=== PATIENT | male | born 1945 | race African-American/Black ===

== ENCOUNTER 2017-02-06 20:04 | Emergency (ER) | payer OTHER ==
[~2017-02-06] VITALS: Ht 175.3 cm; Wt 72.6 kg
[~2017-02-06 20:04] MED LIST: ACETAMINOPHEN325 M1 PO; ALDACTONE25 MG PO; ALLOPURINOL 10100 M1 PO; ALLOPURINOL 30300 M2 PO; ASPIR-LOW81 MG PO; ASPIRIN EC81 M1 PO; ATORVASTATIN CA40 MG PO; CARVEDILOL12.5 MG PO; COLACE100 MG PO; COLCHICINE 0.60.6 M1 PO; COLCHICINE PO; COREG25 MG PO; EFFIENT10 MG PO; FUROSEMIDE 40 M40 M1 PO; FUROSEMIDE 80 M80 M1 PO; HYDROCODONE-AP1 EAC6 PO; IBUPROFEN 600600 M1 PO; IMDUR 60 MG TAB60 M1 PO; INDOMETHACIN 5050 M1 PO; INDOMETHACIN 5050 MG PO; K-DUR10 MEQ PO; KLOR-CON 1010 MEQ PO; LANOXIN 0.120.125 M1 PG; LANOXIN 0.120.125 M1 PO; LASIX 40 MG TAB40 M2 PO; LIPITOR 20 MG T20 M1 PO; LIPITOR40 MG PO; LISINOPRIL10 MG PO; LISINOPRIL20 MG PO; LISINOPRIL40 MG PO; NEURONTIN 300300 M1 PO; NICOTINE TRANSD21 M1 TOP; NITROGLYCERIN0.4 MG SL; NITROGLYCERIN0.4 MG SUBLING; NITROQUICK0.4 MG SL; NORCO 5-325 TA1 EACH PO; PACERONE 200 M200 M1 PO; PHENERGAN 25 MG25 M1 PO; SIMVASTATIN40 MG PO; TOPROL XL25 MG PO; TRAMADOL 50 MG50 MG PO; TYLENOL325 MG PO; VENTOLIN HFA 1818 GM INH; ZETIA10 MG PO
[2017-02-06 21:24] LABS: URINE BILIRUBIN NEGATIVE (Negative); URINE BLOOD TRACE (Negative); URINE COLOR YELLOW; URINE GLUCOSE-RANDOM* NEGATIVE (Negative); URINE KETONES NEGATIVE (Negative); URINE LEUKOCYTES-REFLEX NEGATIVE (Negative); URINE PROTEIN (DIPSTICK) TRACE (Negative); URINE UROBILINOGEN 0.2 E.U./dl (0.2-1.0)
[2017-02-06 21:26] LABS: ABSOLUTE NEUTROPHILS 2.8 thou/uL (1.4-8.2); BASOPHILS 0.6 % (0.0-2.0); EOSINOPHILS 1.8 % (0.0-3.0); HEMATOCRIT 40.9 % (42.0-52.0); HEMOGLOBIN 13.4 gm/dL (14.0-18.0); LYMPHOCYTES 31.5 % (24.0-44.0); MCHC 32.7 g/dL (28.0-37.0); MONOCYTES 11.3 % (1.0-8.0); PLATELET COUNT 175 thou/uL (150-400); POLYS 54.8 % (36.0-66.0); RBC 4.18 mil/uL (4.50-6.00); RDW 17.4 % (10.5-14.5); WBC 5.1 thou/uL (4.0-11.0)
[2017-02-06 21:27] LABS: MANUAL DIFF NO
[2017-02-06 21:32] LABS: CALCIUM 8.1 mg/dL (8.5-10.1); CREATININE 2.5 mg/dL (0.6-1.3); POTASSIUM 4.3 mmol/L (3.5-5.1)
[2017-02-06 21:36] LABS: ALBUMIN 3.1 g/dL (3.4-5.0); TOTAL BILIRUBIN 0.4 mg/dL (<0.1-1.0); TOTAL PROTEIN 8.4 g/dL (6.4-8.2)
[2017-02-06] MEDS ORDERED: ZOFRAN ODT4 MG PO (21:58)
[2017-02-06] MEDS ORDERED: IMODIUM A-D2 MG PO (21:58)
== END 2017-02-06 22:19 ==
LOC: ER 20:04
PROVIDERS: Emergency Medicine
DX: K52.9 Noninfective gastroenteritis and colitis, unspecified (principal); I50.9 Heart failure, unspecified; I10 Essential (primary) hypertension; E78.00 Pure hypercholesterolemia, unspecified; I71.4 Abdominal aortic aneurysm, without rupture; F17.210 Nicotine dependence, cigarettes, uncomplicated; Z85.46 Personal history of malignant neoplasm of prostate; Z95.0 Presence of cardiac pacemaker; Z88.0 Allergy status to penicillin; Z91.041 Radiographic dye allergy status

== ENCOUNTER 2017-08-03 20:55 | Emergency (ER) | payer OTHER ==
[~2017-08-03] VITALS: Ht 175.3 cm; Wt 72.6 kg
[~2017-08-03 20:55] MED LIST changes: +IMODIUM A-D2 MG PO; +ZOFRAN ODT4 MG PO
[2017-08-03] MEDS ORDERED: PREDNISONE 20 M20 MG PO (22:33)
== END 2017-08-03 23:01 | disposition home or self-care (01) ==
LOC: ER 20:55
DX: M54.12 Radiculopathy, cervical region (principal); I11.0 Hypertensive heart disease with heart failure; I50.9 Heart failure, unspecified; E78.00 Pure hypercholesterolemia, unspecified; F17.210 Nicotine dependence, cigarettes, uncomplicated; Z95.1 Presence of aortocoronary bypass graft; Z88.0 Allergy status to penicillin; Z91.041 Radiographic dye allergy status; Z98.890 Other specified postprocedural states; Z96.89 Presence of other specified functional implants; Z85.46 Personal history of malignant neoplasm of prostate

== ENCOUNTER 2017-09-06 00:58 | Emergency (ER) | payer OTHER ==
[~2017-09-06] VITALS: Ht 175.3 cm; Wt 72.6 kg
--- NOTE | ~2017-09-06 | EKG ---
[address] [place] [address] ELECTROCARDIOGRAM REPORT Name: SAJAN GARNETT [facility] [id number] Admission: 09/06/17 Attend Phys: Discharge: 09/06/17 Date of : 41 Report #: [id number] THIS REPORT FOR: //name// [facility] ED Test Date: 2017-09-06 Test Time: 01:11:10 Pat Name: SAJAN GARNETT Department: Room: Gender: Industrial Energy Engineer: JAYESH : 1945 Requested By: Karla Mello Order Number: [id number] MD: Octavio Cameron Measurements Intervals [place] Rate: 60 P: [place]: 196 QRS: 14 QRSD: 146 T: QT: 449 QTc: 449 Interpretive Statements Atrial-paced complexes Left bundle branch block Compared to ECG 02/28/2016 00:55:26 Sinus rhythm no longer present Electronically Signed On 09-06-2017 15:45:10 CDT by Octavio Cameron [email or web address] <ELECTRONICALLY SIGNED> By: Octavio Cameron MD 09/06/17 1545 0111 0 Octavio Cameron MD /MEJIA
[~2017-09-06 00:58] MED LIST changes: +PREDNISONE 20 M20 MG PO
[2017-09-06] MEDS ORDERED: FOLIC ACID1 MG PO (01:06)
[2017-09-06 01:30] LABS: BASOPHILS 1.2 % (0.0-2.0); EOSINOPHILS 3.7 % (0.0-3.0); HEMATOCRIT 38.2 % (42.0-52.0); HEMOGLOBIN 12.4 gm/dL (14.0-18.0); LYMPHOCYTES 27.2 % (24.0-44.0); MCH 31.9 pg (26.0-34.0); MCHC 32.4 g/dL (28.0-37.0); MCV 98.7 fL (80.0-100.0); MONOCYTES 11.9 % (1.0-8.0); PLATELET COUNT 199 thou/uL (150-400); RBC 3.87 mil/uL (4.50-6.00); RDW 16.4 % (10.5-14.5); WBC 5.4 thou/uL (4.0-11.0)
[2017-09-06 01:31] LABS: MANUAL DIFF NO
[2017-09-06 01:36] LABS: CALCIUM 8.6 mg/dL (8.5-10.1); CREATININE 2.7 mg/dL (0.7-1.3); POTASSIUM 4.2 mmol/L (3.5-5.1)
== END 2017-09-06 02:00 | disposition home or self-care (01) ==
LOC: ER 00:58
PROVIDERS: Emergency Medicine
DX: R51 Headache (principal); I11.0 Hypertensive heart disease with heart failure; I50.9 Heart failure, unspecified; F17.210 Nicotine dependence, cigarettes, uncomplicated; E78.00 Pure hypercholesterolemia, unspecified; M10.9 Gout, unspecified; I71.4 Abdominal aortic aneurysm, without rupture; Z85.46 Personal history of malignant neoplasm of prostate; Z91.041 Radiographic dye allergy status; Z88.0 Allergy status to penicillin

== ENCOUNTER → 2017-11-27 | Outpatient (CLI) | payer OTHER ==
[~2017-11-27] MED LIST changes: +ALBUTEROL2.5 MG/31 INH; +COZAAR 50 MG TA50 MG PO; +DUONEB 2.5-0.5 M3 ML INH; +FLOMAX0.4 MG PO; +FLONASE 0.05%50 MCG NASAL; +FOLIC ACID1 MG PO; +HYDRALAZINE 10M10 MG PO; +IMDUR 30 MG TAB30 M1 PO; +MUCINEX600 MG PO; +PROTONIX 20 MG20 M1 PO; +SPIRIVA INH
== END ==
LOC: ULTRA 06:47
DX: I12.9 Hypertensive chronic kidney disease with stage 1 through stage 4 chronic kidney disease, or unspecified chronic kidney disease (principal); I71.4 Abdominal aortic aneurysm, without rupture; N40.0 Benign prostatic hyperplasia without lower urinary tract symptoms; N18.4 Chronic kidney disease, stage 4 (severe); Z95.5 Presence of coronary angioplasty implant and graft

== ENCOUNTER 2018-01-29 04:43 | Inpatient (IN) | payer OTHER ==
[~2018-01-29] VITALS: Ht 175.3 cm; Wt 74.4 kg
--- NOTE | ~2018-01-29 | CATHLAB ---
[facility] [address] [place] [address] INVASIVE PROCEDURE REPORT Name: SAJAN GARNETT Room #: 213-P DIS IN [facility]#: [id number] Admission: 01/29/18 Attend Phys: Nba Julio MD Discharge: 02/01/18 Date of : 41 Date of Service: 02/02/18 1310 Report #: [id number] THIS REPORT FOR: //name// APPROVED REPORT Study performed: 01/30/2018 07:12:06 Patient Details Patient Status: In-Patient Room #: The patient is a 73 year-old male Event Personnel Julio Cesar Slaughter Gate Tender, Tristan Kang RN, Farida Cummings CVT Scrub, Julio Cesar Robertson Monitor Procedures Performed Left Heart Cath w/or w/o Coronaries [id number] [facility] Indication Abnormal ECG, Dyspnea, Chest pain Risk Factors Arterial Hypertension, Coronary Artery DiseaseRenal Failure Previous Procedures/Diagnoses Previous CHF Admission/Lab Medications/Medications given during procedure Heparin Unfract. Procedure Narrative The patient was brought electively to the Cardiac Catheterization Laboratory and was prepped and draped in a sterile manner. The Right Wrist^ was infiltrated with 1% Lidocaine subcutaneous anesthesia. A TRANSRADIAL SLENDER 6F TROD MedicalDESCerevast TherapeuticsTH KIT #[id number] sheath was inserted into the Right Radial Artery^. Coronary angiography was performed using coronary diagnostic catheters. The right coronary system was accessed and visualized with a JR4 catheter. The left coronary system was accessed and visualized with a JL4 catheter. The left ventricle was accessed and visualized with a PIGTAIL catheter. Left ventricular/Aortic Valve gradient assessed via catheter pullback. Closure device was deployed with a 6 Fr VASC BAND R 24CM #[id number]. The patient tolerated the procedure well and there were no complications associated with the procedure. There was no hematoma. [facility] [address] [place] [address] INVASIVE PROCEDURE REPORT Name: SAJAN GARNETT Room #: 213-P [facility] IN ..#: [id number] Admission: 01/29/18 Attend Phys: Nba Julio MD Discharge: 02/01/18 Date of : 41 Date of Service: 02/02/18 1310 Report #: [id number] Intraoperative Conscious Sedation Sedation start time: 7.59 Case end Time: 8.17 Fentanyl 25 mcg Versed 1.5 mg Fluoro Time: 2.04 minutes Dose: 281 mGy Contrast Type and Amount: Visipaque 75 ml Coronary Angiography The patient's coronary anatomy is right dominant. [place] Artery Percent Stenosis Left Main: 0 % Prox LAD: 0 % Mid/Distal LAD: 0 % Circumflex: 0 % RCA: 100 % Ramus: 0 %stent in mid lad had no restenosis Left Ventriculography Left Ventriculography was not performed. Hemodynamics The aortic pressure is 99/67 mmHg with a mean of 78 mmHg. The left ventricular pressure is 99/14 mmHg with a mean of mmHg. The left ventricular end diastolic pressure is 25 mmHg. There was no gradient across the aortic valve upon pullback. Pullback from the left ventricle to the aorta revealed no gradient across the aortic valve. Conclusion 1. cad manifested by chronic occlusion of the proximal rca 2. no restenosis of the stent in the mid lad 3. severe cardiomyopathy Recommendations Aggressive Medical Therapy <ELECTRONICALLY SIGNED> By: Julio Cesar Slaughter MD, FACC 02/02/181309 09 09 Julio Cesar Slaughter MD, FACC /INF
--- NOTE | ~2018-01-29 | HC ---
[facility] [place] [address] [place] [address] CONSULTATION Name: SAJAN GARNETT Room #: 213-P [facility] IN ..#: [id number] Admission: 01/29/18 Attend Phys: Nba Julio MD Discharge: Date of : 41 Report #: [id number] THIS REPORT FOR: //name// CC: Richard Martinez Vishal Peralta DATE OF SERVICE: 01/29/2018 HISTORY OF PRESENT ILLNESS: The patient is a 73-year-old black male who I was asked to see in the hospital after he complained of chest pain. The patient presented in 2002 with acute pulmonary edema and had to be intubated. He was seen by Dr. Hernandez at that time. His creatinine ananda to 2.3. The patient was instructed to decrease his alcohol intake. He underwent a cardiac catheterization in 2002 that showed no significant disease in the LAD, circumflex. The right coronary artery is chronically occluded, filled by collaterals. Ejection fraction was felt to be less than 20%. The patient had a repeat cardiac catheterization in 2012. This showed an ejection fraction of only 20% with a chronic occlusion of the right coronary artery. He underwent another cardiac catheterization in 2013. He was found to have a significant stenosis in the proximal LAD and a drug-eluting stent placed by Dr. Camarena. Repeat heart catheterization in 2014 showed no restenosis of stent or chronic occlusion of the right coronary artery. He had an echocardiogram in 09/2017 that showed an ejection fraction of only 25% with left ventricular hypertrophy. The patient has done well since that time. However, he is not very active. He notes recently he has had intermittent tightness in his chest and become short of breath. He woke up this morning at 4:00 a.m. and had tightness in his chest and took a couple of nitroglycerins. He called the EMS, brought here to [facility]. He was admitted for further evaluation and treatment. He denied any recent fever. He has been coughing. He denied any significant edema. He has had no palpitations or syncope. PAST MEDICAL HISTORY: Significant for previous tonsillectomy, partial thyroidectomy. He has had a previous placement of an abdominal aortic aneurysm stent graft by Dr. Lowery. He just saw Sebastián August about 3 weeks ago. He has hypertension, hyperlipidemia. He saw Dr. Mckinnon about a month ago and apparently had a nuclear stress test. CURRENT MEDICATIONS: Consists of amiodarone, carvedilol, aspirin, Lipitor, Zetia, allopurinol. ALLERGIES: He has a previous reaction to CONTRAST AND PENICILLIN. FAMILY HISTORY: Negative for heart disease. 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 He used to drink [facility] [address] [place] [address] CONSULTATION Name: GARNETTSAJAN L Room #: 213-P [facility] IN .R.#: [id number] Admission: 01/29/18 Attend Phys: Nba Julio MD Discharge: Date of : 41 Report #: [id number] heavily, no longer drinks alcohol. Quit smoking 5 years ago, although he used to smoke a pack of cigarettes a day for years. REVIEW OF SYSTEMS: He has had no history of stroke, asthma, peptic ulcer disease. He has chronic kidney disease. He has had prostate cancer. PHYSICAL EXAMINATION: GENERAL: A large, elderly male lying in bed. He appeared in no distress. VITAL SIGNS: He had a blood pressure 110/60, pulse 60, he is afebrile. HEENT: He is anicteric. Conjunctivae pink. Mucous membranes moist. NECK: Veins do not appear distended. No carotid bruits. Neck supple. CHEST: Revealed basilar rales. CARDIAC: Regular rate and rhythm. No significant murmur. ABDOMEN: Soft. EXTREMITIES: Had no edema. Posterior tibial pulse 2+ bilaterally. SKIN: Warm and dry. NEUROLOGIC: Nonfocal. His ECG from this morning showed a sinus rhythm, occasional PVC and left bundle-branch block. His workup, he had portable chest x-ray that showed cardiomegaly, dual chamber pacemaker, lungs clear. He had a CT scan of the head without contrast last September that showed no acute abnormality. LABORATORY DATA: Sodium 143, potassium 4.3. His BUN was 49, creatinine is 2.4. Liver function studies were normal. Troponin is 0.04. Cholesterol 135, triglyceride 87, HDL 35, LDL 83. His white blood cell count 7.6, hemoglobin 12.5. IMPRESSION AND RECOMMENDATIONS: 1. Chest pain. Previous stenting. Consider repeat cardiac catheterization. 2. Cardiomyopathy. The patient has been on a beta-lalit. He apparently is not on ZULEMA inhibitor nor ARB because of chronic kidney disease. I would consider adding hydralazine and long-acting nitroglycerin. 3. History of ventricular tachycardia. The patient on amiodarone. 4. Previous implantation of pacemaker. 5. History of prostate cancer. 6. Chronic kidney disease. 7. Previous placement of an abdominal aortic aneurysm stent graft. 8. History of tobacco abuse. <ELECTRONICALLY SIGNED> By: Julio Cesar Slaughter MD, [facility] 01/30/18 0742 2033 2144 Julio Cesar Slaughter MD, FACC /nt
--- NOTE | ~2018-01-29 | EKG ---
[place] [address] [facility] [place] [email or web address] [address] ELECTROCARDIOGRAM REPORT Name: SAJAN GARNETT Room #: 213-P ADM IN M.R.#: [id number] Admission: 01/29/18 Attend Phys: Vishal Peralta MD Discharge: Date of : 41 Report #: [id number] THIS REPORT FOR: //name// [facility] ED Test Date: 2018-01-29 Test Time: 04:51:31 Pat Name: SAJAN GARNETT Department: Room: 213 Gender: M Canvas Worker Apprentice: Rosario RITTER : 1945 Requested By: Obdulio Eller Order Number: [id number] MD: Darshan Carmona Measurements Intervals [place] Rate: 69 P: 20 [place]: 201 QRS: 94 QRSD: 133 T: 256 QT: 415 QTc: 445 Interpretive Statements Sinus rhythm Multiple ventricular premature complexes Left bundle branch block Compared to ECG 09/16/2017 20:33:26 Ventricular premature complex(es) now present Electronically Signed On 01-29-2018 7:20:50 CDT by Darshan Carmona [email or web address] <ELECTRONICALLY SIGNED> By: Darshan Carmona MD, [facility] 01/29/18 0720 0451 0451 Darshan Carmona MD, [facility] /EPI
[~2018-01-29 04:43] MED LIST changes: -ALBUTEROL2.5 MG/31 INH; -COZAAR 50 MG TA50 MG PO; -DUONEB 2.5-0.5 M3 ML INH; -FLOMAX0.4 MG PO; -FLONASE 0.05%50 MCG NASAL; -HYDRALAZINE 10M10 MG PO; -IMDUR 30 MG TAB30 M1 PO; -MUCINEX600 MG PO; -PROTONIX 20 MG20 M1 PO; -SPIRIVA INH
[2018-01-29 04:44] VITALS: BP 128/80
[2018-01-29 04:56] LABS: ABSOLUTE NEUTROPHILS 5.6 thou/uL (1.4-8.2); BASOPHILS 0.8 % (0.0-2.0); EOSINOPHILS 3.3 % (0.0-3.0); HEMATOCRIT 38.5 % (42.0-52.0); HEMOGLOBIN 12.5 gm/dL (14.0-18.0); LYMPHOCYTES 16.8 % (24.0-44.0); MCH 31.2 pg (26.0-34.0); MCHC 32.4 g/dL (28.0-37.0); MCV 96.1 fL (80.0-100.0); PLATELET COUNT 173 thou/uL (150-400); POLYS 73.1 % (36.0-66.0); RBC 4.01 mil/uL (4.50-6.00); RDW 14.8 % (10.5-14.5); WBC 7.6 thou/uL (4.0-11.0)
[2018-01-29 05:02] LABS: ANION GAP 9 mmol/L (7-16); BUN 49 mg/dL (7-18); CALCIUM 8.6 mg/dL (8.5-10.1); CHLORIDE 108 mmol/L (98-107); CO2 26 mmol/L (21-32); CREATININE 2.4 mg/dL (0.7-1.3); GLUCOSE 118 mg/dL (74-106); POTASSIUM 4.3 mmol/L (3.5-5.1); SODIUM 143 mmol/L (136-145)
[2018-01-29 05:10] LABS: ALBUMIN 2.9 g/dL (3.4-5.0); APTT 27.1 Seconds (24.5-32.8); INR 1.1; MAGNESIUM 2.1 mg/dL (1.8-2.4); PROTIME 11.3 Seconds (9.3-11.4); SGOT 40 U/L (15-37); SGPT 45 U/L (30-65); TOTAL BILIRUBIN 0.3 mg/dL (<0.1-1.0); TROPONIN-I < 0.04 ng/mL (<0.06)
[2018-01-29 06:15] VITALS: BP 117/69
[2018-01-29 06:25] VITALS: BP 120/70
[2018-01-29 10:26] LABS: CHOLESTEROL 135 mg/dL (<200); HDL CHOLESTEROL 35 mg/dL (>40); LDL CHOLESTEROL 83 mg/dL (<100); TC:HDL 3.9 Ratio (Not establshd); TRIGLYCERIDE 87 mg/dL (<150); VLDL 17 mg/dL (<40)
[2018-01-29 10:53] LABS: TSH 0.338 uIU/mL (0.358-3.740)
[2018-01-29 15:15] VITALS: BP 113/64
[2018-01-29 19:31] VITALS: BP 110/63
[2018-01-30] VITALS (14 sets, daily range): BP systolic 99–121; BP diastolic 59–79
[2018-01-30 03:44] LABS: CALCIUM 8.7 mg/dL (8.5-10.1); CREATININE 2.3 mg/dL (0.7-1.3); MAGNESIUM 2.1 mg/dL (1.8-2.4); POTASSIUM 4.1 mmol/L (3.5-5.1)
[2018-01-30 04:16] LABS: ABSOLUTE NEUTROPHILS 11.4 thou/uL (1.4-8.2); HEMATOCRIT 36.9 % (42.0-52.0); LYMPHOCYTES 6.8 % (24.0-44.0); MCH 30.9 pg (26.0-34.0); MCHC 32.4 g/dL (28.0-37.0); MCV 95.4 fL (80.0-100.0); MONOCYTES 3.4 % (1.0-8.0); PLATELET COUNT 158 thou/uL (150-400); POLYS 89.8 % (36.0-66.0); RBC 3.87 mil/uL (4.50-6.00); RDW 14.8 % (10.5-14.5); WBC 12.7 thou/uL (4.0-11.0)
[2018-01-31 00:19] VITALS: BP 120/80
[2018-01-31 03:54] LABS: HEMOGLOBIN 11.7 gm/dL (14.0-18.0); MCHC 32.6 g/dL (28.0-37.0); MCV 95.1 fL (80.0-100.0); RBC 3.79 mil/uL (4.50-6.00); RDW 14.8 % (10.5-14.5); WBC 17.2 thou/uL (4.0-11.0)
[2018-01-31 04:11] LABS: CALCIUM 8.3 mg/dL (8.5-10.1); CREATININE 2.2 mg/dL (0.7-1.3); POTASSIUM 4.6 mmol/L (3.5-5.1)
[2018-01-31 05:04] VITALS: BP 130/88
[2018-01-31 07:56] VITALS: BP 132/93
[2018-01-31 10:31] LABS: URINE BILIRUBIN NEGATIVE (Negative); URINE BLOOD NEGATIVE (Negative); URINE CLARITY CLEAR; URINE COLOR YELLOW; URINE GLUCOSE-RANDOM* NEGATIVE (Negative); URINE KETONES NEGATIVE (Negative); URINE LEUKOCYTES-REFLEX NEGATIVE (Negative); URINE NITRITE-REFLEX NEGATIVE (Negative); URINE PROTEIN (DIPSTICK) NEGATIVE (Negative); URINE UROBILINOGEN 0.2 E.U./dl (0.2-1.0)
[2018-01-31 12:11] VITALS: BP 124/84
[2018-01-31 16:07] VITALS: BP 124/82
[2018-01-31 19:57] VITALS: BP 119/82
[2018-02-01 01:10] VITALS: BP 135/92
[2018-02-01 04:11] LABS: HEMATOCRIT 37.1 % (42.0-52.0); HEMOGLOBIN 11.9 gm/dL (14.0-18.0); MCH 30.8 pg (26.0-34.0); MCHC 32.2 g/dL (28.0-37.0); MCV 95.8 fL (80.0-100.0); RBC 3.87 mil/uL (4.50-6.00); RDW 15.4 % (10.5-14.5); WBC 14.4 thou/uL (4.0-11.0)
[2018-02-01 04:14] LABS: CALCIUM 8.4 mg/dL (8.5-10.1); CREATININE 2.3 mg/dL (0.7-1.3); POTASSIUM 4.3 mmol/L (3.5-5.1)
[2018-02-01 04:57] VITALS: BP 137/89
[2018-02-01] MEDS ORDERED: FLOMAX0.4 MG PO (10:46)
[2018-02-01] MEDS ORDERED: IMDUR 30 MG TAB30 M1 PO (10:46)
[2018-02-01] MEDS ORDERED: HYDRALAZINE 10M10 MG PO (10:46)
[2018-02-01] MEDS ORDERED: MUCINEX600 MG PO (10:47)
[2018-02-01] MEDS ORDERED: PROTONIX 20 MG20 M1 PO (10:48)
[2018-02-01] MEDS ORDERED: FLONASE 0.05%50 MCG NASAL (10:48)
[2018-02-01 12:08] VITALS: BP 119/76
[2018-02-01 12:32] VITALS: BP 119/76
[2018-02-01 13:19] VITALS: BP 119/76
[2018-06-17] MEDS ORDERED: ZETIA10 MG PO (07:17)
[2018-06-17] MEDS ORDERED: COZAAR 50 MG TA50 MG PO (07:19)
[2018-06-17] MEDS ORDERED: SPIRIVA INH (07:20)
[2018-06-17] MEDS ORDERED: PROTONIX 20 MG20 M1 PO (07:20)
[2018-06-17] MEDS ORDERED: VENTOLIN HFA 1818 GM INH (07:21)
== END 2018-02-01 13:24 | disposition home or self-care (01) | DRG 286 ==
LOC: ER 04:43 → 2N 05:46 → EROBS 05:46 → 2N 06:08
PROVIDERS: Emergency Medicine; Hospitalist; Internal Medicine Cardiovascular Disease; Nurse Practitioner
PROC: B2111ZZ Fluoroscopy of Multiple Coronary Arteries using Low Osmolar Contrast (ICD-10-PCS; principal; 2018-01-30)
PROC: 4A023N7 Measurement of Cardiac Sampling and Pressure, Left Heart, Percutaneous Approach (ICD-10-PCS; principal; 2018-01-30)
DX: I13.0 Hypertensive heart and chronic kidney disease with heart failure and stage 1 through stage 4 chronic kidney disease, or unspecified chronic kidney disease (principal); E43 Unspecified severe protein-calorie malnutrition; I50.23 Acute on chronic systolic (congestive) heart failure; N17.9 Acute kidney failure, unspecified; I44.7 Left bundle-branch block, unspecified; I42.9 Cardiomyopathy, unspecified; E78.00 Pure hypercholesterolemia, unspecified; M10.9 Gout, unspecified; I25.10 Atherosclerotic heart disease of native coronary artery without angina pectoris; E89.0 Postprocedural hypothyroidism; N18.9 Chronic kidney disease, unspecified; I49.3 Ventricular premature depolarization; I71.4 Abdominal aortic aneurysm, without rupture; Z95.5 Presence of coronary angioplasty implant and graft; Z95.0 Presence of cardiac pacemaker; Z85.46 Personal history of malignant neoplasm of prostate; Z79.899 Other long term (current) drug therapy; Z88.0 Allergy status to penicillin; Z91.041 Radiographic dye allergy status; Z90.49 Acquired absence of other specified parts of digestive tract; Z79.82 Long term (current) use of aspirin; Z82.49 Family history of ischemic heart disease and other diseases of the circulatory system; Z87.891 Personal history of nicotine dependence; Z68.24 Body mass index [BMI] 24.0-24.9, adult
CPT/HCPCS: 10081

== ENCOUNTER 2018-02-14 08:42 | Inpatient (IN) | payer OTHER ==
[~2018-02-14] VITALS: Ht 175.3 cm; Wt 72.6 kg
[2018-02-14] VITALS (7 sets, daily range): BP systolic 100–132; BP diastolic 70–88
--- NOTE | ~2018-02-14 | EKG ---
[place] [address] [facility] [place] [address] ELECTROCARDIOGRAM REPORT Name: SAJAN GARNETT Room #: 423-1 ADM IN M.R.#: [id number] Admission: 02/14/18 Attend Phys: Vishal Peralta MD Discharge: Date of : 41 Report #: [id number] THIS REPORT FOR: //name// [facility] Test Date: 2018-02-15 Test Time: 00:24:23 Pat Name: SAJAN GARNETT Department: Room: [facility] Gender: M Elevator Conductor: jennifer : 1945 Requested By: Lita Lutz Order Number: [id number] MD: Darshan Carmona Measurements Intervals [place] Rate: 61 P: -17 ND: 194 QRS: 75 QRSD: 143 T: 176 QT: 491 QTc: 495 Interpretive Statements Sinus rhythm Left bundle branch block Cannot rule out anterolateral infarct, age indeterminate Compared to ECG 01/29/2018 04:51:31 No significant change was found Electronically Signed On 02-15-2018 13:05:56 CDT by Darshan Carmona [email or web address] <ELECTRONICALLY SIGNED> By: Darshan Carmona MD, [facility] 02/15/18 1305 0024 0024 Darshan Carmona MD, [facility] /EPI
--- NOTE | ~2018-02-14 | HC ---
[facility] [place] [address] [place] [address] CONSULTATION Name: SAJAN GARNETT Room #: 423-1 ADM IN M.R.#: [id number] Admission: 02/14/18 Attend Phys: Vishal Peralta MD Discharge: Date of : 41 Report #: [id number] THIS REPORT FOR: //name// CC: Richard Peralta PRIMARY CREDIT PRODUCT ANALYST: Zion Mckinnon M.D. REASON FOR CONSULTATION: Shortness of breath. HISTORY OF PRESENT ILLNESS: The patient is a 73-year-old male with ischemic cardiomyopathy, severe LV dysfunction and prior ICD. He presented with acute onset of orthopnea and PND. He really did not gain weight. He had been taking Lasix once daily as instructed. He has chronic kidney disease. He denies ICD discharge. He denies chest pain or pressure. He presented with hypoxia. His ECG did not show any acute ST segment changes. He has complaints of remaining in shortness of breath despite aggressive diuresis of over a liter of fluid overnight. He denies syncope or presyncope. He has been compliant with his other medications. PAST MEDICAL HISTORY: Ischemic cardiomyopathy, has a chronically occluded right coronary artery, in 2014, he underwent a cardiac catheterization, which showed a patent stent in the LAD. EF is 20-25%. He has an ICD. He has a history of prior partial thyroidectomy. He has a history of AAA stent. He is a tobacco user prior. CURRENT MEDICATIONS: Include amiodarone, carvedilol, aspirin, Lipitor, Zetia, allopurinol. Amiodarone 100 mg daily, carvedilol 12.5 mg p.o. b.i.d., hydralazine 10 mg p.o. t.i.d., Imdur 30 mg daily. He takes Lasix 40 mg daily, atorvastatin 20 mg daily, Zetia 10 mg daily, allopurinol 300 mg daily. ALLERGIES: IODINATED CONTRAST. SOCIAL HISTORY: He is a tobacco user actively. REVIEW OF SYSTEMS: GENERAL: No fevers or chills. GASTROINTESTINAL: No hematemesis, melena. GENITOURINARY: No dysuria or hematuria. CARDIOVASCULAR: No chest pain. No ICD discharge. Positive dyspnea, positive orthopnea, positive PND. NEUROLOGIC: Denies weakness or numbness. No seizures. RENAL: Positive history of kidney disease. [address] [address] CONSULTATION Name: SAJAN GARNETT Room #: 423-1 [facility] IN [facility].#: [id number] Admission: 02/14/18 Attend Phys: Vishal Peralta MD Discharge: Date of : 41 Report #: [id number] PHYSICAL EXAMINATION: VITAL SIGNS: Blood pressure when he presented was in the 120s/80s, O2 sats 97%, respiratory rate was 22. Weight 160 pounds. GENERAL: Thin elderly male. He is alert, in no apparent distress. NECK: Supple. No jugular venous distention. CARDIOVASCULAR: Regular, positive S3. LUNGS: Diminished breath sounds bilaterally. ABDOMEN: Soft, nontender. There is no rebound or guarding. EXTREMITIES: No peripheral edema. In fact, there is peripheral wasting. SKIN: Warm, dry. LABORATORY DATA: Electrocardiogram shows a sinus rhythm, left bundle. Sodium is 142, potassium is 4.2, chloride is 107, CO2 is 25, BUN is 33. On presentation, his creatinine was 2.3, this morning it is 2.6. His chest x-ray showed mild bibasilar nonconsolidative infiltrates. IMPRESSION: 1. Dqxnt-mu-rkqjcfd systolic congestive heart failure. He is aggressively diuresed, but still has some shortness of breath. So I wonder if this is a mixed presentation. He likely has fairly significant lung disease. I would back off his IV Lasix to once daily. After the next 24 hours, it can be discontinued, he can go back on oral Lasix. I would alternate 40 mg and 60 mg on discharge. 2. Coronary artery disease. He remained asymptomatic for angina, and I would not proceed with any invasive workup at this time. I think his symptoms are mixed congestive heart failure, chronic obstructive pulmonary disease exacerbation. 3. Chronic obstructive pulmonary disease. He likely will require home O2. 4. Hypertension. This is stable. 5. Chronic kidney disease. We are backing off on his IV Lasix therapy. By: 0934 1112 Hank Gonzalez MD, FACC /nt
--- NOTE | ~2018-02-14 | EKG ---
[place] [address] [facility] [place] [address] ELECTROCARDIOGRAM REPORT Name: SAJAN GARNETT Room #: 423-1 ADM IN M.R.#: [id number] Admission: 02/14/18 Attend Phys: Vishal Peralta MD Discharge: Date of : 41 Report #: [id number] THIS REPORT FOR: //name// [facility] ED Test Date: 2018-02-14 Test Time: 09:22:09 Pat Name: SAJAN GARNETT Department: Room: [facility] Gender: M Housing Director: Ade RAJAN : 1945 Requested By: Marcus Jarrett Order Number: [id number] MD: Darshan Carmona Measurements Intervals [place] Rate: 62 P: 5 [place]: 194 QRS: 94 QRSD: 148 T: 266 QT: 493 QTc: 501 Interpretive Statements Sinus rhythm Left bundle branch block Compared to ECG 01/29/2018 04:51:31 Ventricular premature complex(es) no longer present Electronically Signed On 02-15-2018 12:55:03 CDT by Darshan Carmona [email or web address] <ELECTRONICALLY SIGNED> By: Darshan Carmona MD, [facility] 02/15/18 1255 0922 1 Darshan Carmona MD, [facility] /EPI
[~2018-02-14 08:42] MED LIST changes: +FLOMAX0.4 MG PO; +FLONASE 0.05%50 MCG NASAL; +HYDRALAZINE 10M10 MG PO; +IMDUR 30 MG TAB30 M1 PO; +MUCINEX600 MG PO; +PROTONIX 20 MG20 M1 PO
[2018-02-14 09:27] LABS: BASOPHILS 1.3 % (0.0-2.0); EOSINOPHILS 3.9 % (0.0-3.0); HEMATOCRIT 37.4 % (42.0-52.0); HEMOGLOBIN 12.5 gm/dL (14.0-18.0); LYMPHOCYTES 22.2 % (24.0-44.0); MCH 31.7 pg (26.0-34.0); MCHC 33.4 g/dL (28.0-37.0); MCV 94.9 fL (80.0-100.0); MONOCYTES 9.8 % (1.0-8.0); PLATELET COUNT 253 thou/uL (150-400); POLYS 62.8 % (36.0-66.0); RBC 3.94 mil/uL (4.50-6.00); RDW 14.9 % (10.5-14.5); WBC 6.3 thou/uL (4.0-11.0)
[2018-02-14 09:36] LABS: ANION GAP 10 mmol/L (7-16); BUN 33 mg/dL (7-18); CHLORIDE 107 mmol/L (98-107); CO2 25 mmol/L (21-32); CREATININE 2.3 mg/dL (0.7-1.3); GLUCOSE 96 mg/dL (74-106); POTASSIUM 4.2 mmol/L (3.5-5.1); SODIUM 142 mmol/L (136-145)
[2018-02-14 09:44] LABS: ALBUMIN 2.7 g/dL (3.4-5.0); SGOT 21 U/L (15-37); SGPT 20 U/L (30-65); TOTAL BILIRUBIN 0.5 mg/dL (<0.1-1.0); TOTAL PROTEIN 8.1 g/dL (6.4-8.2); TROPONIN-I < 0.04 ng/mL (<0.06)
[2018-02-15 00:30] VITALS: BP 123/80
[2018-02-15 05:36] VITALS: BP 123/85
[2018-02-15 08:06] VITALS: BP 115/82
[2018-02-15 08:32] LABS: CALCIUM 9.1 mg/dL (8.5-10.1); CREATININE 2.6 mg/dL (0.7-1.3); MAGNESIUM 1.9 mg/dL (1.8-2.4); POTASSIUM 4.4 mmol/L (3.5-5.1)
[2018-02-15 16:00] VITALS: BP 92/65
[2018-02-15 19:40] VITALS: BP 92/56
[2018-02-16 04:10] VITALS: BP 110/70
[2018-02-16 07:50] VITALS: BP 114/68
[2018-02-16 15:50] VITALS: BP 117/61
[2018-02-16] MEDS ORDERED: ALBUTEROL2.5 MG/31 INH (15:58)
[2018-02-16] MEDS ORDERED: COLACE100 MG PO (15:58)
[2018-02-16] MEDS ORDERED: DUONEB 2.5-0.5 M3 ML INH (15:58)
[2018-02-16 16:33] VITALS: BP 117/61
[2018-02-16 17:54] VITALS: BP 117/61
== END 2018-02-16 18:57 | disposition home or self-care (01) | DRG 291 ==
LOC: ER 08:42 → 4E 10:06 → EROBS 10:06 → 4E 11:25
PROVIDERS: Emergency Medicine; Internal Medicine
DX: I13.0 Hypertensive heart and chronic kidney disease with heart failure and stage 1 through stage 4 chronic kidney disease, or unspecified chronic kidney disease (principal); I50.23 Acute on chronic systolic (congestive) heart failure; J44.1 Chronic obstructive pulmonary disease with (acute) exacerbation; I25.10 Atherosclerotic heart disease of native coronary artery without angina pectoris; I25.5 Ischemic cardiomyopathy; E89.0 Postprocedural hypothyroidism; M10.9 Gout, unspecified; N18.9 Chronic kidney disease, unspecified; E78.5 Hyperlipidemia, unspecified; F17.210 Nicotine dependence, cigarettes, uncomplicated; Z95.5 Presence of coronary angioplasty implant and graft; Z85.46 Personal history of malignant neoplasm of prostate; Z95.810 Presence of automatic (implantable) cardiac defibrillator; Z95.820 Peripheral vascular angioplasty status with implants and grafts; Z79.51 Long term (current) use of inhaled steroids; Z79.82 Long term (current) use of aspirin; Z79.899 Other long term (current) drug therapy; Z88.0 Allergy status to penicillin; Z91.041 Radiographic dye allergy status; Z82.49 Family history of ischemic heart disease and other diseases of the circulatory system
CPT/HCPCS: 10183

== ENCOUNTER 2018-12-22 13:25 | Emergency (ER) | payer OTHER ==
[~2018-12-22] VITALS: Ht 175.3 cm; Wt 72.6 kg
[~2018-12-22 13:25] MED LIST changes: +ALBUTEROL2.5 MG/31 INH; +COZAAR 50 MG TA50 MG PO; +DUONEB 2.5-0.5 M3 ML INH; +SPIRIVA INH
[2018-12-22 13:48] LABS: ABSOLUTE NEUTROPHILS 2.8 thou/uL (1.4-8.2); BASOPHILS 0.9 % (0.0-2.0); EOSINOPHILS 4.1 % (0.0-3.0); HEMATOCRIT 38.5 % (42.0-52.0); HEMOGLOBIN 12.6 gm/dL (14.0-18.0); LYMPHOCYTES 26.6 % (24.0-44.0); MCH 31.5 pg (26.0-34.0); MCHC 32.8 g/dL (28.0-37.0); MONOCYTES 11.9 % (1.0-8.0); PLATELET COUNT 170 thou/uL (150-400); POLYS 56.5 % (36.0-66.0); RBC 4.01 mil/uL (4.50-6.00); RDW 15.5 % (10.5-14.5); WBC 4.9 thou/uL (4.0-11.0)
[2018-12-22 13:55] LABS: ANION GAP 8 mmol/L (7-16); BUN 48 mg/dL (7-18); CALCIUM 8.6 mg/dL (8.5-10.1); CHLORIDE 105 mmol/L (98-107); CO2 24 mmol/L (21-32); CREATININE 2.7 mg/dL (0.7-1.3); GLUCOSE 98 mg/dL (74-106); SODIUM 137 mmol/L (136-145)
[2018-12-22 13:56] LABS: POTASSIUM 4.9 mmol/L (3.5-5.1)
[2018-12-22 14:04] LABS: ALBUMIN 2.9 g/dL (3.4-5.0); MAGNESIUM 2.4 mg/dL (1.8-2.4); SGOT 20 U/L (15-37); SGPT 8 U/L (30-65); TOTAL BILIRUBIN 0.4 mg/dL (<0.1-1.0); TROPONIN-I <0.06 ng/mL (<0.06)
[2018-12-22] MEDS ORDERED: COZAAR 25 MG TA25 M1 PO (14:22)
[2018-12-22] MEDS ORDERED: ALBUTEROL2.5 MG/31 INH (15:51)
[2018-12-22 16:20] VITALS: BP 128/64
--- NOTE | 2018-12-22 17:17 | EKG ---
[place] [address] [facility] [place] [address] ELECTROCARDIOGRAM REPORT Name: SAJAN GARNETT [facility] [id number] Admission: 12/22/18 Attend Phys: Discharge: Date of : 41 Report #: [id number] THIS REPORT FOR: //name// [facility] ED Test Date: 2018-12-22 Test Time: 13:46:48 Pat Name: SAJAN GARNETT Department: Room: Gender: M Health Occupations Instructor: kf : 1945 Requested By: Obdulio Eller Order Number: [id number] MD: Octavio Cameron Measurements Intervals [place] Rate: 71 P: -22 SD: 59 QRS: 191 QRSD: 165 T: 90 QT: 451 QTc: 491 Interpretive Statements Ventricular-paced complexes No further analysis attempted due to paced rhythm Compared to ECG 02/15/2018 00:24:23 Sinus rhythm no longer present Left bundle-branch block no longer present Myocardial infarct finding no longer present Electronically Signed On 12-22-2018 17:17:00 STEEL DETAILER by Octavio Cameron [email or web address] <ELECTRONICALLY SIGNED> By: Octavio Cameron MD 12/22/18 1717 1346 1346 Octavio Cameron MD /EPI
== END 2018-12-22 16:00 | disposition home or self-care (01) ==
LOC: ER 13:25
PROVIDERS: Emergency Medicine
DX: I25.5 Ischemic cardiomyopathy (principal); I13.0 Hypertensive heart and chronic kidney disease with heart failure and stage 1 through stage 4 chronic kidney disease, or unspecified chronic kidney disease; N18.9 Chronic kidney disease, unspecified; I50.9 Heart failure, unspecified; R06.00 Dyspnea, unspecified; R10.9 Unspecified abdominal pain; E78.00 Pure hypercholesterolemia, unspecified; E78.5 Hyperlipidemia, unspecified; I25.10 Atherosclerotic heart disease of native coronary artery without angina pectoris; F17.210 Nicotine dependence, cigarettes, uncomplicated; Z88.0 Allergy status to penicillin; Z91.041 Radiographic dye allergy status; Z95.5 Presence of coronary angioplasty implant and graft; Z85.46 Personal history of malignant neoplasm of prostate

== ENCOUNTER 2019-03-15 05:25 | Emergency (ER) | payer OTHER ==
[~2019-03-15] VITALS: Ht 175.3 cm; Wt 73.0 kg
[~2019-03-15 05:25] MED LIST changes: +COZAAR 25 MG TA25 M1 PO
[2019-03-15] MEDS ORDERED: AMIODARONE HCL100 MG PO (05:38)
[2019-03-15] MEDS ORDERED: LASIX 80 MG TAB80 MG PO (05:40)
[2019-03-15 05:57] LABS: ABSOLUTE NEUTROPHILS 5.2 thou/uL (1.4-8.2); EOSINOPHILS 1.7 % (0.0-3.0); HEMATOCRIT 40.8 % (42.0-52.0); HEMOGLOBIN 13.4 gm/dL (14.0-18.0); LYMPHOCYTES 18.3 % (24.0-44.0); MCH 31.3 pg (26.0-34.0); MCHC 32.7 g/dL (28.0-37.0); MCV 95.5 fL (80.0-100.0); MONOCYTES 10.1 % (1.0-8.0); PLATELET COUNT 195 thou/uL (150-400); POLYS 68.9 % (36.0-66.0); RBC 4.27 mil/uL (4.50-6.00); RDW 15.3 % (10.5-14.5); WBC 7.6 thou/uL (4.0-11.0)
[2019-03-15 06:02] LABS: ANION GAP 11 mmol/L (7-16); BUN 41 mg/dL (7-18); CALCIUM 8.9 mg/dL (8.5-10.1); CHLORIDE 103 mmol/L (98-107); CO2 23 mmol/L (21-32); CREATININE 2.3 mg/dL (0.7-1.3); GLUCOSE 94 mg/dL (74-106); POTASSIUM 5.2 mmol/L (3.5-5.1); SODIUM 137 mmol/L (136-145)
[2019-03-15 06:11] LABS: ALBUMIN 3.4 g/dL (3.4-5.0); MAGNESIUM 2.6 mg/dL (1.8-2.4); SGOT 20 U/L (15-37); SGPT 10 U/L (30-65); TOTAL BILIRUBIN 0.8 mg/dL (<0.1-1.0); TOTAL PROTEIN 9.1 g/dL (6.4-8.2); TROPONIN-I <0.06 ng/mL (<0.06)
[2019-03-15 08:57] VITALS: BP 136/84
--- NOTE | 2019-03-15 08:59 | EKG ---
[place] [address] [place] [address] ELECTROCARDIOGRAM REPORT Name: SAJAN GARNETT Room #: DEP Robert#: [id number] ������������������ Admission: 03/15/19 ������������������ Attend Phys: Discharge: 03/15/19 ������������������ Date of : 41 Report #: [id number] ����������������������������������������������������������������� [id number] THIS REPORT FOR: //name// [facility] ED Test Date: 2019-03-15 Test Time: 05:40:55 Pat Name: SAJAN GARNETT Department: Room: Gender: M First Officer And Flight Instructor: franky : 1945 Requested By: Tina Medellin Order Number: [id number] MD: Darshan Carmona Measurements Intervals [place] Rate: 82 P: 83 [place]: 161 QRS: 202 QRSD: 147 T: 52 QT: 421 QTc: 492 Interpretive Statements Atrial-sensed ventricular-paced complexes No further analysis attempted due to paced rhythm Compared to ECG 12/22/2018 13:46:48 No significant changes Electronically Signed On 03-15-2019 8:58:54 CDT by Darshan Carmona [email or web address] ��������������������������������������������� <ELECTRONICALLY SIGNED> ���������������������������������������� By: Darshan Carmona MD, [facility] ��������������������������������������������� 03/15/19 0858 9 Darshan Carmona MD, [facility] /EPI
== END 2019-03-15 08:57 | disposition home or self-care (01) ==
LOC: ER 05:25
PROVIDERS: Student in an Organized Health Care Education/Training Program
DX: I11.0 Hypertensive heart disease with heart failure (principal); I50.9 Heart failure, unspecified; E78.00 Pure hypercholesterolemia, unspecified; I25.10 Atherosclerotic heart disease of native coronary artery without angina pectoris; M10.9 Gout, unspecified; F17.210 Nicotine dependence, cigarettes, uncomplicated; Z95.5 Presence of coronary angioplasty implant and graft; Z85.46 Personal history of malignant neoplasm of prostate; Z91.041 Radiographic dye allergy status; Z88.0 Allergy status to penicillin

== ENCOUNTER 2019-03-24 14:46 | Inpatient (IN) | payer OTHER ==
[~2019-03-24] VITALS: Ht 175.3 cm; Wt 73.5 kg
--- NOTE | ~2019-03-24 | HC ---
[facility] [place] [address] [place] [address] CONSULTATION Name: SAJAN GARNETT Room #: 356-[facility] IN M.R.#: [id number] Admission: 03/24/19 ������������������ Attend Phys: Vishal Peralta MD Discharge: 03/26/19 ������������������ Date of : 41 Report #: [id number] THIS REPORT FOR: //name// CC: Richard Peralta DATE OF SERVICE: 03/26/2019 PRIMARY CARE PHYSICIAN: Dr. Peralta. TREATMENT COUNSELOR: Dr. Zion Mckinnon. OUTPATIENT PRIMARY CARE PHYSICIAN: Dr. Richard Martinez. CHIEF COMPLAINT: Right arm weakness. HISTORY OF PRESENT ILLNESS: The patient is a 74-year-old man, with severe LV dysfunction, who presented to the hospital with acute onset of right arm numbness, weakness and inability to move it. He thinks it lasted maybe at the longest 5 minutes. It was flaccid. He did not have any arm symptoms. He did not have any slurred speech as far as he knows. He denied any leg weakness. There were no facial symptoms. He presented in an AV paced rhythm. His symptoms had resolved by the time he got to the Emergency Room. Emergent CT scan of the head showed some nonspecific findings, but ultimately, he was evaluated by our neurology colleagues after evaluating his CT and carotid Doppler studies, which were largely unremarkable. It was felt his symptoms were probably embolic. An ICD interrogation for atrial fibrillation is pending, but telemetry has demonstrated only AV pacing and sinus rhythm with ventricular pacing. From a heart failure standpoint, he has had some issues with fluid retention as his EF is in the 15% range. Currently, he takes alternating doses of Lasix 80 mg and 40 mg. He denies defibrillator shocks or chest pain, pressure or shortness of breath. He has a remote history of ventricular tachycardia. There is no record of syncope or presyncope. His vital signs were stable on presentation, blood pressures in the 120s/70s. PAST MEDICAL HISTORY: Severe LV dysfunction, tobacco use, ventricular tachycardia, status post Biotronik ICD implanted, most recently generator change in June 2018, it is a biventricular device. He has class 3 heart failure, chronic kidney disease, remote [place]. [facility] [address] [place] [address] CONSULTATION Name: SAJAN GARNETT Room #: 356-P [facility] IN M.R.#: [id number] Admission: 03/24/19 ������������������ Attend Phys: Vishal Peralta MD Discharge: 03/26/19 ������������������ Date of : 41 Report #: [id number] HOME MEDICATIONS: Aspirin 81 mg daily, Zetia 10 mg daily, albuterol, atorvastatin 20 mg daily, losartan 25 mg daily, amiodarone 50 mg daily, Lasix 80 mg alternating with 40 mg, Protonix 20 mg daily. REVIEW OF SYSTEMS: GENERAL: No fevers or chills. CARDIOVASCULAR: Positive dyspnea on exertion, occasional orthopnea, but none recently. No PND. Positive edema. GENITOURINARY: No dysuria or hematuria. GASTROINTESTINAL: No rectal bleeding, hematemesis, melena or black colored stools. EYES: Denies any blurred vision or loss of vision. THROAT: Denies any dysphagia. NEUROLOGIC: As above. HEMATOLOGIC: No anemia or bleeding disorders. RENAL: Positive kidney failure. PHYSICAL EXAMINATION: VITAL SIGNS: Blood pressure as noted above. He presents currently is in a sinus rhythm with V pacing. GENERAL: He is alert, sitting in a chair. He is in no apparent distress. HEENT: Eyes: EOMs intact. No facial asymmetry. NECK: Supple. No jugular venous distention. CARDIOVASCULAR: Regular. I cannot hear a murmur. There is positive S3. LUNGS: Clear to auscultation bilaterally. ABDOMEN: Nontender. EXTREMITIES: There is peripheral wasting. There is no peripheral edema. NEUROLOGIC: There are no focal deficits. Electrocardiogram demonstrates AV pacing. LABORATORY DATA: Hemoglobin is 12.5, white blood cell count is 5.0, platelet count is 175,000. INR is 1.1. Sodium is 141, potassium is 4.3, chloride is 107, CO2 is 23, BUN is 47, creatinine is 2.5. UA is negative. Carotid Doppler study shows no significant carotid arterial atherosclerotic disease or stenosis. 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 ASSESSMENT: 1. Transient ischemic attack. After reviewing his data and his neurologic evaluation, it is felt that this was probably embolic. His resting echocardiogram did not show evidence of thrombus, but given his ejection fraction in the 15-20% range, he has substrate for spontaneous thrombus formation, especially in the presence of a possible atrial arrhythmia, atrial fibrillation. He has not had any evidence of atrial fibrillation inpatient and [facility] [address] [place] [address] CONSULTATION Name: SAJAN GARNETT Room #: 356-P DIS IN Robert#: [id number] Admission: 03/24/19 ������������������ Attend Phys: Vishal Peralta MD Discharge: 03/26/19 ������������������ Date of : 43 Report #: [id number] we will have his device interrogated to see if he has had any events; however, even if there is no evidence of atrial fibrillation, I suspect he should be anticoagulated with either Plavix or Xarelto. I would vote for the latter renally dosed 15 mg daily given his high risk for spontaneous thrombus in his left ventricle. 2. Chronic systolic congestive heart failure. He has severe left ventricular dysfunction; however, he is mostly compensated. He has done fairly well on alternating doses of 80 mg and 40 mg of Lasix. 3. Chronic kidney disease. This is probably near his baseline. I do not have his outpatient record. 4. Status post biventricular implantable cardioverter defibrillator. This is a recent device that should be MRI compatible if Dr. Molina feels as an MRI is necessary. It has been in for more than 6 months. ��������������������������������������������� ���������������������������������������� By: ��������������������������������������������� 0836 0031 Hank Gonzalez MD, FACC /nt
[~2019-03-24 14:46] MED LIST changes: +AMIODARONE HCL100 MG PO; +LASIX 80 MG TAB80 MG PO
[2019-03-24 14:52] VITALS: BP 113/76
[2019-03-24 15:12] LABS: BASOPHILS 1.2 % (0.0-2.0); HEMATOCRIT 38.8 % (42.0-52.0); HEMOGLOBIN 12.5 gm/dL (14.0-18.0); MCH 30.7 pg (26.0-34.0); MCHC 32.2 g/dL (28.0-37.0); MCV 95.2 fL (80.0-100.0); MONOCYTES 10.7 % (1.0-8.0); PLATELET COUNT 175 thou/uL (150-400); POLYS 59.1 % (36.0-66.0); RBC 4.08 mil/uL (4.50-6.00); RDW 15.1 % (10.5-14.5)
[2019-03-24] MEDS ORDERED: PROTONIX 20 MG20 M1 PO (15:19)
[2019-03-24 15:21] LABS: ANION GAP 9 mmol/L (7-16); BUN 49 mg/dL (7-18); CHLORIDE 109 mmol/L (98-107); CO2 23 mmol/L (21-32); CREATININE 2.7 mg/dL (0.7-1.3); GLUCOSE 96 mg/dL (74-106); POTASSIUM 4.8 mmol/L (3.5-5.1); SODIUM 141 mmol/L (136-145)
[2019-03-24 15:25] LABS: APTT 28.8 Seconds (24.5-32.8); INR 1.1; PROTIME 11.6 Seconds (9.3-11.4)
[2019-03-24 15:30] LABS: TROPONIN-I <0.06 ng/mL (<0.06)
[2019-03-24 18:50] LABS: URINE BILIRUBIN NEGATIVE (Negative); URINE BLOOD NEGATIVE (Negative); URINE CLARITY CLEAR; URINE COLOR YELLOW; URINE GLUCOSE-RANDOM* NEGATIVE (Negative); URINE KETONES NEGATIVE (Negative); URINE LEUKOCYTES NEGATIVE (Negative); URINE NITRITE NEGATIVE (Negative); URINE PROTEIN (DIPSTICK) NEGATIVE (Negative); URINE SPECIFIC GRAVITY 1.015 (1.005-1.035); URINE UROBILINOGEN 0.2 E.U./dl (0.2-1.0)
[2019-03-24 19:35] VITALS: BP 124/73
[2019-03-24 19:55] VITALS: BP 128/78
[2019-03-24 20:05] VITALS: BP 131/84
--- NOTE | 2019-03-24 23:30 | NUR ---
PATIENT WAS A NEW ADMISSION TO THE UNIT THIS SHIFT. HE ARRIVED VIA CART FROM THE ER AND WAS ABLE TO AMBULATE TO THE BED INCIDENT FREE. PATIENT IS FULLY ORIENTED AND ABLE TO PARTICIPATE FULLY IN ADMISSION PROCESS. PATIENT IS STRONG AND BALANCED WHEN AMBULATING AND IS UP AD MAE. NURSE TO COMPLETE ADMISSION PROCESS AND INITIATE CARE PLAN.
[2019-03-25] VITALS (7 sets, daily range): BP systolic 100–113; BP diastolic 62–79
[2019-03-25 05:47] LABS: ANION GAP 11 mmol/L (7-16); BUN 47 mg/dL (7-18); CALCIUM 8.4 mg/dL (8.5-10.1); CHLORIDE 107 mmol/L (98-107); CHOLESTEROL 197 mg/dL (<200); CO2 23 mmol/L (21-32); CREATININE 2.5 mg/dL (0.7-1.3); GLUCOSE 119 mg/dL (74-106); HDL CHOLESTEROL 40 mg/dL (>40); LDL CHOLESTEROL 142 mg/dL (<100); MAGNESIUM 1.9 mg/dL (1.8-2.4); POTASSIUM 4.3 mmol/L (3.5-5.1); SODIUM 141 mmol/L (136-145); TC:HDL 4.9 Ratio (Not establshd); TRIGLYCERIDE 76 mg/dL (<150); VLDL 15 mg/dL (<40)
[2019-03-25 06:00] LABS: SERUM ASSESSMENT Clear
--- NOTE | 2019-03-25 10:04 | 2DMMODE ---
[facility] [address] [place] [address] 2 D/M-MODE ECHOCARDIOGRAM Name: SAJAN GARNETT Room #: 356-P [facility] IN .R.#: [id number] ������������� Admission: 03/24/19 ������������� Attend Phys: Vishal Peralta, Discharge: ��� ������������� ��� Date of : 41 Date of Service: 03/25/19 1004 �� Report #: [id number] �������� ��������������������������������������������[id number] THIS REPORT FOR: //name// APPROVED REPORT Study performed: 03/25/2019 09:25:07 EXAM: Comprehensive 2D, Doppler, and color-flow Echocardiogram Patient Location: Echo lab Room #: [facility] Status: routine BSA: 1.89 HR: 60 bpm BP: 108/79 mmHg Rhythm: NSR Other Information Study Quality: Adequate Indications CVA/TIA Pacemaker Echo Enhancing Agent Indication: Rule out Shunt Agent(s) / Amount(s) Used: Agitated Saline 6 cc 2D Dimensions RVDd: 34.27 mm IVSd: 10.56 (7-11mm) LVOT Diam: 23.46 (18-24mm) LVDd: 70.59 mm PWd: 12.20 (7-11mm) Ascending Ao: 36.66 (22-36mm) LVDs: 70.09 (25-40mm) Aortic Root: 32.72 mm IVC: 15.00 mm Volumes Left Atrial Volume (Systole) Single Plane 4CH: 92.34 mL Single Plane 2CH: 103.26 mL LA ESV Index: 55.00 mL/m2 Aortic Valve AoV Peak Fernando.: 1.17 m/s AO Peak Gr.: 5.44 mmHg LVOT Max P.06 mmHg LVOT Max V: 0.51 m/s AKILA Vmax: 1.90 cm2 [facility] [address] [place] [address] 2 D/M-MODE ECHOCARDIOGRAM Name: SAJAN GARNETT Room #: 356-P [facility] IN .R.#: [id number] ������������� Admission: 03/24/19 ������������� Attend Phys: Vishal Peralta, Discharge: ��� ������������� ��� Date of : 41 Date of Service: 03/25/19 1004 �� Report #: [id number] �������� ��������������������������������������������[id number] Mitral Valve E/A Ratio: 2.1 MV Decel. Time: 132.15 ms MV E Max Fernando.: 0.78 m/s MV A Fernando.: 0.37 m/s MV PHT: 38.32 ms IVRT: 138.41 ms Pulmonary Valve PV Peak Fernando.: 0.78 m/s PV Peak Gr.: 2.46 mmHg Pulmonary Vein P Vein S: 0.35 m/s P Vein A: 0.24 m/s P Vein D: 0.41 m/s P Vein A Dur.: 92.3 msec P Vein S/D Ratio: 0.85 Tricuspid Valve TR Peak Fernando.: 3.18 m/s RAP Estimate: 5.00 mmHg TR Peak Gr.: 40.45 mmHg PA Pressure: 45.00 mmHg Left Ventricle Left ventricle is moderately dilated. There is normal left ventricular wall thickness. Left ventricular ejection fraction is severely decreased. LVEF is 10-15%. Transmitral Doppler flow pattern suggests restrictive physiology. Right Ventricle The right ventricle is normal size. Right ventricle is moderately hypokinetic. Atria Left atrium is severely dilated. No shunting by contrast bubble injection. The right atrium size is normal. Aortic Valve Aortic valve leaflets are mildly thickened. Trace aortic regurgitation. There is no aortic valvular stenosis. Mitral Valve The mitral valve is normal in structure. Mild mitral regurgitation. No evidence of mitral valve stenosis. Tricuspid Valve The tricuspid valve is normal in structure. Mild tricuspid [facility] [address] [place] [address] 2 D/M-MODE ECHOCARDIOGRAM Name: SAJAN GARNETT Room #: 356-P [facility] IN .R.#: [id number] ������������� Admission: 03/24/19 ������������� Attend Phys: Vishal Peralta, Discharge: ��� ������������� ��� Date of : 41 Date of Service: 03/25/19 1004 �� Report #: [id number] �������� ��������������������������������������������[id number] regurgitation. PAP is estimated at 45 mmHg. Pulmonic Valve The pulmonary valve is normal in structure. Trace to mild pulmonic regurgitation. Great Vessels The aortic root is normal in size. IVC is normal in size and collapses >50% with inspiration. Pericardium There is no pericardial effusion. <Conclusion> Left ventricle is moderately dilated. LVEF is 10-15%. Right ventricle is moderately hypokinetic. Left atrium is severely dilated. No shunting by contrast bubble injection. Aortic valve leaflets are mildly thickened. Trace aortic regurgitation. The mitral valve is normal in structure. Mild mitral regurgitation. The tricuspid valve is normal in structure. Mild tricuspid regurgitation. PAP is estimated at 45 mmHg. The pulmonary valve is normal in structure. Trace to mild pulmonic regurgitation. There is no pericardial effusion. ��������������������������������������������� <ELECTRONICALLY SIGNED> ���������������������������������������� By: Raghavendra So MD ��������������������������������������������� 03/25/19 1004 1004 1004 Raghavendra So MD /INF
--- NOTE | 2019-03-25 10:39 | NUR ---
ASSESSMENT: CM REVIEWED CHART AND MET WITH PATIENT AT THE BEDSIDE. PT WAS ADMITTED WITH RIGHT ARM WEAKNESS / POSSIBLE TIA. PT REPORTS HE LIVES IN A HOUSE WITH HIS . PT REPORTS IF HER ENTERS THROUGH THE FRONT DOOR HE HAS ABOUT 7 STEPS WITH HANDRAILS TO GET IN THE MAIN LEVEL AND IF HE ENTERS THROUGH THE GARAGE HAS ABOUT 14 STEPS WITH HANDRAILS TO THE MAIN LEVEL. PT REPORTS HE NORMALLY AMBULATES INDEPENDENTLY BUT SELDOMLY USES A CANE. PT REPORTS HE HAS A SHOWER CHAIR AND IS INDEPENDENT WITH ADLS. PT REPORTS HE HAS NOT HAD HH IN THE PAST OR BEEN TO A SNF/REHAB. PT REPORTS HE HAS A NEBULIZER AT HOME THROUGH [employer]. CM DISCUSSED ROLE. PT DOES NOT ANTICIPATE HAVING ANY NEEDS AT DISCHARGE. PT/OT EVALS ARE PENDING, CM WILL CONTINUE TO FOLLOW TO [facility] NEEDED.
--- NOTE | 2019-03-25 11:16 | NUR ---
ORDERS FOR PT EVAL AND TREAT RECEIVED. Pt HAS BEEN UP AD MAE WITH STEADY GAIT PER RN AND EMR. Pt PRESENTED TO HOSPITAL WITH DECREASED SENSATION TO R UE WHICH STARTED WHILE HE WAS AT A GAS STATION, BUT Pt REPORTS THIS HAS NOW RESOLVED. Pt LIVES WITH HIS IN HOME WITH 14 STEPS UP TO MAIN LEVEL FROM GARAGE. Pt DRIVES AND IS INDEP WITH ADLs AT BASELINE. AMBULATORY WITHOUT AD. Pt STATES HE DOES NOT NEED PT SERVICES AND HAS NO QUESTIONS OR CONCERNS ABOUT RETURNING HOME AND HIS MOBILITY UPON D/C FROM HOSPITAL. NO ACUTE PT NEEDS IDENITIFED. ACUTE PT TO SIGN OFF.
--- NOTE | 2019-03-25 16:51 | EKG ---
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1945 Requested By: Tina Medellin Order Number: [id number] MD: Octavio Cameron Measurements Intervals [place] Rate: 60 P: 96 ND: 144 QRS: 197 QRSD: 172 T: 77 QT: 532 QTc: 532 Interpretive Statements A-V dual-paced rhythm No further analysis attempted due to paced rhythm Compared to ECG 03/15/2019 05:40:55 Atrial-sensed ventricular-paced complex(es) or rhythm no longer present Electronically Signed On 03-25-2019 16:51:19 CDT by Octavio Cameron [email or web address] ��������������������������������������������� <ELECTRONICALLY SIGNED> ���������������������������������������� By: Octavio Cameron MD ��������������������������������������������� 03/25/19 1651 1528 1528 Octavio Cameron MD /EPI
--- NOTE | 2019-03-25 18:41 | NUR ---
PATIENT PLEASANT AND COOPERATIVE WITH CARE. DOES NOT SEEM TO BE IN PAIN AT THIS TIME. STATES HE HAS BEEN CONSTIPATED FOR A COUPLE OF DAYS AND PRN MIRALAX ADMININSTERED. WILL CONT WITH PLAN OF CARE.
[2019-03-25] MEDS ORDERED: LASIX 40 MG TAB40 M2 PO (23:17)
[2019-03-26 04:30] VITALS: BP 118/69
--- NOTE | 2019-03-26 06:33 | NUR ---
PATIENT IS PROGRESSING RAPIDLY IN CARE PLAN. VITAL SIGNS STABLE WITH PATIENT HAVING NO COMPLAINTS OF PAIN OR NAUSEA. PATIENT REMAINS FULLY ORIENTED AND IS ABLE TO CALL APPROPRIATELY FOR REQUESTS. UP AD MAE THROUGHOUT SHIFT, PATIENT IS STRONG AND BALANCED WHEN AMBULATING. POSSIBLE DISCHARGE TODAY. CONTINUE PLAN OF CARE.
[2019-03-26 08:07] VITALS: BP 118/82
[2019-03-26 11:25] VITALS: BP 105/65
[2019-03-26] MEDS ORDERED: PROTONIX40 M1 PO (12:13)
[2019-03-26] MEDS ORDERED: PLAVIX 75 MG TA75 M1 PO (12:56)
[2019-03-26 13:02] VITALS: BP 105/65
--- NOTE | 2019-03-26 13:17 | NUR ---
PATIENT WILL BE DISCHARGED AT THIS TIME TO HOME. HE IS PLEASANT. ADMITTING SYMPTOMS HAVE ALL BEEN RESOLVED. HE DENIES PAIN. ALERT ORIENTED X4. WILL CONT WITH PLAN OF CARE.
--- NOTE | 2019-03-26 13:24 | NUR ---
on-going assessment: PT HAS ORDERS TO DISCHARGE HOME TODAY WITH NO NEEDS. PT REPORTS HE HAS TRANSPORTATION HOME AND HAS NO NEEDS FROM CM.
--- NOTE | 2019-03-26 14:06 | HC ---
[facility] [place] [address] [place] [address] CONSULTATION Name: SAJAN GARNETT Room #: 356-P [facility] IN M.R.#: [id number] Admission: 03/24/19 ������������������ Attend Phys: Vishal Peralta MD Discharge: 03/26/19 ������������������ Date of : 43 Report #: [id number] THIS REPORT FOR: //name// CC: Richard Peralta DATE OF SERVICE: 03/24/2019 HISTORY OF PRESENT ILLNESS: This is a 74-year-old male patient who was evaluated by me in the Emergency Room. I talked to Dr. Medellin and the patient had an acute onset of paralysis of the right arm. That has resolved. He has some nonspecific symptoms, which are sensory now. He does have an ischemic cardiomyopathy, but he does not appear to have any prior stroke. His symptoms were severe when it happened, but it has resolved now. REVIEW OF SYSTEMS: Indicate he has an ejection fraction of only 20%. His blood pressure is running low. He has elevated cholesterol. He has a history of ischemic cardiomyopathy. He had a defibrillator and pacemaker and as I understand, it is incompatible with MRI. He has chronic kidney problems and his GFR is only 28. A 14-point review of system was carried out in this patient and it is as summarized above. PAST MEDICAL HISTORY: Positive for cardiomyopathy. FAMILY HISTORY: Unremarkable. SOCIAL HISTORY: He has a history of smoking. PHYSICAL EXAMINATION: NEUROLOGIC: The patient's examination indicates he is alert. He is responsive. He can follow simple and complex commands. Cranial nerve examination 2-12 looks unremarkable. He complained of subjective sensory loss on the right side. There is no meningeal sign. NECK: There is no carotid bruit. CARDIAC EXAMINATION: Unremarkable. LUNGS: No respiratory difficulty or rhonchi is noticed. VITAL SIGNS: His blood pressure was running low at about 100/66, his respirations are 13, pulse is 60 and temperature is 99. LABORATORY DATA: He did have a CT scan of the head done that showed white matter disease. IMPRESSION AND PLAN: The patient's presentation is consistent with a possible transient ischemic attack or a small stroke. It is a difficult management problem. We cannot do an MRI because of pacemaker and defibrillator and that is incompatible with MRI. I cannot do CT angio because of his kidney failure. [facility] [address] [place] [address] CONSULTATION Name: SAJAN GARNETT Room #: 356-P [facility] IN M.R.#: [id number] Admission: 03/24/19 ������������������ Attend Phys: Vishal Peralta MD Discharge: 03/26/19 ������������������ Date of : 43 Report #: [id number] question is whether to give him TPA or not give him TPA. It discussed with him. His symptoms are mostly resolved. I suspect it is emboli. I got a carotid Doppler done and that does not show any hemodynamically significant stenosis. I discussed his options with him and ultimate plan was to just watch him. Avoid any hypotension on him. I will give a stat Plavix to him and we will get an echocardiogram done to see if there is any thrombus there and he will need prolonged monitoring to look for atrial fibrillation as an outpatient. Time spent 50 minutes, half of the time spent counseling and coordinating. ��������������������������������������������� <ELECTRONICALLY SIGNED> ���������������������������������������� By: Jamey Molina MD ��������������������������������������������� 03/26/19 1406 1711 1037 Jamey Molina MD /nt
--- NOTE | 2019-03-30 12:54 | NUR ---
Notified on 03/30/19 via voicemail left for transmission inspector that Dr. Peralta did complete the Peer to Peer review with Dr. Loida Foster on 03/30/[address] Foster denied current level of care services that were provided.
== END 2019-03-26 13:31 | disposition home or self-care (01) | DRG 69 ==
LOC: ER 14:46 → 3W 18:21 → EROBS 18:21 → 3W 19:56
PROVIDERS: Nurse Practitioner; Student in an Organized Health Care Education/Training Program; ADMIT Internal Medicine
DX: G45.9 Transient cerebral ischemic attack, unspecified (principal); N17.9 Acute kidney failure, unspecified; I50.22 Chronic systolic (congestive) heart failure; I47.2 Ventricular tachycardia; I13.0 Hypertensive heart and chronic kidney disease with heart failure and stage 1 through stage 4 chronic kidney disease, or unspecified chronic kidney disease; I25.5 Ischemic cardiomyopathy; M10.9 Gout, unspecified; N18.9 Chronic kidney disease, unspecified; I71.4 Abdominal aortic aneurysm, without rupture; E86.0 Dehydration; E78.5 Hyperlipidemia, unspecified; R13.10 Dysphagia, unspecified; I25.10 Atherosclerotic heart disease of native coronary artery without angina pectoris; Z95.5 Presence of coronary angioplasty implant and graft; Z85.46 Personal history of malignant neoplasm of prostate; Z95.0 Presence of cardiac pacemaker; Z95.820 Peripheral vascular angioplasty status with implants and grafts; Z88.0 Allergy status to penicillin; Z91.041 Radiographic dye allergy status; Z82.49 Family history of ischemic heart disease and other diseases of the circulatory system; Z87.891 Personal history of nicotine dependence; I25.2 Old myocardial infarction
CPT/HCPCS: 10879

== ENCOUNTER 2019-05-06 08:21 | Inpatient (IN) | payer OTHER ==
[~2019-05-06] VITALS: Ht 175.3 cm; Wt 71.7 kg
[2019-05-06] VITALS (7 sets, daily range): BP systolic 99–127; BP diastolic 54–80
[~2019-05-06 08:21] MED LIST changes: +PLAVIX 75 MG TA75 M1 PO; +PROTONIX40 M1 PO
[2019-05-06 08:53] LABS: ABSOLUTE NEUTROPHILS 3.1 thou/uL (1.4-8.2); BASOPHILS 1.2 % (0.0-2.0); EOSINOPHILS 3.1 % (0.0-3.0); HEMATOCRIT 39.4 % (42.0-52.0); HEMOGLOBIN 12.7 gm/dL (14.0-18.0); LYMPHOCYTES 22.4 % (24.0-44.0); MCH 30.5 pg (26.0-34.0); MCHC 32.3 g/dL (28.0-37.0); MCV 94.6 fL (80.0-100.0); PLATELET COUNT 154 thou/uL (150-400); POLYS 62.3 % (36.0-66.0); RBC 4.17 mil/uL (4.50-6.00); RDW 14.1 % (10.5-14.5)
[2019-05-06 09:06] LABS: APTT 30.3 Seconds (24.5-32.8); INR 1.2; PROTIME 12.3 Seconds (9.3-11.4)
[2019-05-06 09:09] LABS: ALBUMIN 3.3 g/dL (3.4-5.0); CALCIUM 9.1 mg/dL (8.5-10.1); CREATININE 2.8 mg/dL (0.7-1.3); POTASSIUM 3.9 mmol/L (3.5-5.1); TOTAL BILIRUBIN 0.6 mg/dL (<0.1-1.0); TOTAL PROTEIN 8.8 g/dL (6.4-8.2); TROPONIN-I 0.32 ng/mL (<0.06)
[2019-05-06] MEDS ORDERED: FLOMAX0.4 MG PO ×3 (09:33→12:35)
[2019-05-06] MEDS ORDERED: LASIX 40 MG TAB40 M2 PO ×2 (09:33→12:32)
[2019-05-06 09:56] LABS: URINE BILIRUBIN NEGATIVE (Negative); URINE BLOOD NEGATIVE (Negative); URINE CLARITY CLEAR; URINE COLOR YELLOW; URINE GLUCOSE-RANDOM* NEGATIVE (Negative); URINE KETONES NEGATIVE (Negative); URINE LEUKOCYTES NEGATIVE (Negative); URINE NITRITE NEGATIVE (Negative); URINE PROTEIN (DIPSTICK) NEGATIVE (Negative); URINE UROBILINOGEN 0.2 E.U./dl (0.2-1.0)
[2019-05-06] MEDS ORDERED: AMIODARONE HCL100 MG PO (12:31)
[2019-05-06] MEDS ORDERED: SODIUM BICARBO650 M3 PO (12:33)
[2019-05-06] MEDS ORDERED: ZETIA10 MG PO (12:35)
--- NOTE | 2019-05-06 19:48 | NUR ---
Patient admitted to [facility] around 1100 this AM. site monitor applied. Patient tele monitor fell in toilet this afternoon. Issues with tele box have since then been resolved by [employer]. Patient was placed on a temporary tele box for another room for the time being. Hospital tele concerns explained to patient and . NIH scores have been no more than 3. Daily weight taken upon admit. No medications needed for chest pain. Patient up with or staff standby. Patient has a little right sided weakness but no drift, drooling from right side of mouth when eating but adequately swallowing and right sided peripheral vision abnormality. No nausea or vomiting complaints. at bedside with patient all day. Patient seems to be improving from this morning. Slow progress toward plan of care at this time.
[2019-05-07 04:36] VITALS: BP 115/71
[2019-05-07 06:10] LABS: ABSOLUTE NEUTROPHILS 3.2 thou/uL (1.4-8.2); BASOPHILS 1.1 % (0.0-2.0); EOSINOPHILS 3.3 % (0.0-3.0); HEMATOCRIT 38.7 % (42.0-52.0); HEMOGLOBIN 12.6 gm/dL (14.0-18.0); LYMPHOCYTES 25.1 % (24.0-44.0); MCH 30.5 pg (26.0-34.0); MCHC 32.4 g/dL (28.0-37.0); MONOCYTES 10.6 % (1.0-8.0); PLATELET COUNT 161 thou/uL (150-400); POLYS 59.9 % (36.0-66.0); RBC 4.12 mil/uL (4.50-6.00); RDW 14.3 % (10.5-14.5); WBC 5.4 thou/uL (4.0-11.0)
[2019-05-07 06:28] LABS: CALCIUM 8.6 mg/dL (8.5-10.1); CREATININE 2.6 mg/dL (0.7-1.3); MAGNESIUM 1.9 mg/dL (1.8-2.4); POTASSIUM 4.1 mmol/L (3.5-5.1)
[2019-05-07 06:39] LABS: CHOLESTEROL 209 mg/dL (<200); HDL CHOLESTEROL 42 mg/dL (>40); LDL CHOLESTEROL 143 mg/dL (<100); TRIGLYCERIDE 121 mg/dL (<150); VLDL 24 mg/dL (<40)
[2019-05-07 06:42] LABS: SERUM ASSESSMENT Clear
--- NOTE | 2019-05-07 06:57 | NUR ---
Pt. has slept well during the night. No change in neuro assessment. Mild left facial droop and hand daycare provider are equal. Bed alarm for safety. Denies any pain. Making progress towards care plan goals.
--- NOTE | 2019-05-07 07:44 | EKG ---
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1945 Requested By: Ramo Cabrera Order Number: [id number] MD: Darshan Carmona Measurements Intervals [place] Rate: 57 P: 103 [place]: 144 QRS: 229 QRSD: 140 T: 117 QT: 545 QTc: 531 Interpretive Statements Atrial-ventricular dual-paced complexes No further analysis attempted due to paced rhythm Compared to ECG 03/24/2019 15:28:53 No significant changes Electronically Signed On 05-07-2019 7:44:14 CDT by Darshan Carmona [email or web address] ��������������������������������������������� <ELECTRONICALLY SIGNED> ���������������������������������������� By: Darshan Carmona MD, [facility] ��������������������������������������������� 05/07/19 0744 2 2 Darshan Carmona MD, [facility] /EPI
--- NOTE | 2019-05-07 07:46 | EKG ---
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 : 1945 Requested By: Ramo Cabrera Order Number: [id number] MD: Darshan Carmona Measurements Intervals [place] Rate: 62 P: 0 [place]: 55 QRS: 215 QRSD: 171 T: 76 QT: 500 QTc: 508 Interpretive Statements Atrial-ventricular dual-paced complexes No further analysis attempted due to paced rhythm Compared to ECG 03/24/2019 15:28:53 No significant changes Electronically Signed On 05-07-2019 7:46:43 CDT by Darshan Carmona [email or web address] ��������������������������������������������� <ELECTRONICALLY SIGNED> ���������������������������������������� By: Darshan Carmona MD, [facility] ��������������������������������������������� 05/07/19 0746 1022 1022 Darshan Carmona MD, [facility] /EPI
[2019-05-07 08:13] VITALS: BP 90/68
--- NOTE | 2019-05-07 10:15 | NUR ---
ASSESSMENT: CM REVIEWED CHART AND MET WITH PATIENT AND HIS AT THE BEDSIDE. PT WAS ADMITTED WITH POSSIBLE CVA. PT REPORTS HE LIVES IN A HOUSE WITH HIS . PT REPORTS HE ENTERS THROUGH THE GARAGE AND THEN HAS ABOUT 14 STEPS WITH HANDRAILS TO THE MAIN LEVEL. PT REPORTS HE AMBULATES INDEPENDENTLY. PT REPORTS HE HAS A SHOWER CHAIR IN THE SHOWER AND IS INDEPENDENT WITH ADLS. CM DISCUSSED ROLE. PT DOES NOT ANTICIPATE NEEDING ANY FURTHER THERAPY AND DECLINES THE NEED FOR HH. PT RECOMMENDING HH/OUTPATIENT/ACUTE REHAB/HOME. PT STATING HE DOES NOT FEEL HE NEEDS ANY OF THIS.CM WILL CONTINUE TO FOLLOW TO ASSIST NEEDED.
[2019-05-07 11:21] VITALS: BP 100/71
--- NOTE | 2019-05-07 13:21 | NUR ---
care of pt assumed this am @ ~0700. pt requests to walk to bthrm to brush his teeth before breakfast, then requested to sit in his chair for breakfast meal. pt noted to have a balanced, steady and coordinated gait. pt voiding per urinal. pt verbalized that he feels he is back to his baseline prior to admission. pt denies n/v/d. pt denies any pain. pt's at late morning. call placed to dr. rosa as per dr. brewer request. pt is hopeful of dc soon.
--- NOTE | 2019-05-07 13:37 | HC ---
[facility] [place] [address] [place] [address] CONSULTATION Name: SAJAN GARNETT Room #: 356- ADM IN M.R.#: [id number] Admission: 05/06/19 ������������������ Attend Phys: Nigel Mejia MD Discharge: ������������������ Date of : 43 Report #: [id number] THIS REPORT FOR: //name// CC: Richard Wong DATE OF SERVICE: 05/06/2019 CARDIOLOGY CONSULTATION HISTORY OF PRESENT ILLNESS: The patient is a 74-year-old black male who I was asked to see in the hospital today because of his history of coronary artery disease. The patient has an extensive past medical history. He apparently had a coronary stent placed years ago. He has a history of an ischemic cardiomyopathy and has had his first defibrillator implanted in 2012. I actually performed a repeat heart catheterization a year ago in 01/2018 that showed chronic occlusion of the proximal right coronary artery, but no restenosis of the stent in the LAD. No ventriculogram was performed. His last echocardiogram in 2016 showed an ejection fraction of only 25%. Last summer in June, his defibrillator was upgraded to a BiV defibrillator by Dr. Cmaeron. This device was interrogated in November of this year that showed no events. The patient is not very active because of his ischemic cardiomyopathy. He was last here at [facility] in March when he had some right arm numbness, is felt to have had a TIA. The patient was placed on Plavix after being seen by Neurology. CT scan of the head apparently showed an old right cerebellar lacunar infarction, which was unchanged 2015. The patient states that he was doing well until woke up this morning and had some weakness of the right upper extremity. He cannot lift anything. He came to the hospital is felt to have a TIA. Cardiology consultation requested. He did note occasional left-sided chest pain that is not exertional. There is no radiation of the pain. He does become short of breath with exertion. He has had no palpitations, syncope, edema, discharges of his defibrillator. PAST MEDICAL HISTORY: Significant for surgery for thyroid goiter. He has received therapy for prostate cancer. He had a previous placement of an abdominal aortic aneurysm stent graft. He has a history of hypertension and hyperlipidemia. MEDICATIONS: Consists of amiodarone, aspirin, Plavix, Lipitor, carvedilol, Zetia, and Lasix. He apparently could not tolerate ZULEMA inhibitors or ARBs because of low blood pressure. He also has chronic kidney disease. He is on amiodarone because of a history of ventricular tachycardia. FAMILY HISTORY: Negative for heart disease. [address] [address] CONSULTATION Name: SAJAN GARNETT Room #: 356-[facility] IN M.R.#: [id number] Admission: 05/06/19 ������������������ Attend Phys: Nigel Mejia MD Discharge: ������������������ Date of : 43 Report #: [id number] SOCIAL HISTORY: He is . He and his live in [place]. 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 Quit smoking in the past. No alcohol abuse. REVIEW OF SYSTEMS: He has had no history of liver disease, GI bleeding. He has chronic kidney disease. No history of skin problems. No psychiatric illness. PHYSICAL EXAMINATION: GENERAL: Revealed an elderly, frail-appearing male, lying in bed. He appeared in no acute distress. VITAL SIGNS: Blood pressure of 100/60, his pulse is 60, and he is afebrile. HEENT: He is anicteric. Conjunctivae pink. Mucous membranes are moist. NECK: Veins do not appear distended. CHEST: Clear to auscultation. CARDIOVASCULAR: Regular rate and rhythm. ABDOMEN: Soft. EXTREMITIES: Had no edema. SKIN: Warm and dry. NEUROLOGIC: Nonfocal. LABORATORY DATA AND DIAGNOSTIC DATA: His workup so far; his ECG showed an AV sequentially rhythm, occasional PVC. He had an echocardiogram done last month that showed an ejection fraction less than 20%, dilated left ventricle, left atrial enlargement. No intracardiac shunt, aortic sclerosis, mild mitral regurgitation. His workup in the Emergency Room today; portable chest x-ray showed normal heart size, pulmonary vasculature appeared normal. CT scan of the head without contrast showed atrophy, no acute abnormality. Carotid Doppler study last month showed no significant carotid stenosis. His lab work; sodium 137, BUN 52, creatinine 2.8. Liver function studies were normal. His troponin is 0.32. Last month, cholesterol was 187, triglyceride 76, HDL 40, and LDL 142. His white blood cell count 5.0 and hemoglobin 12.7. IMPRESSION AND RECOMMENDATIONS: 1. Transient ischemic attack. It occurred despite aspirin and Plavix. Because of his cardiomyopathy, I would recommend anticoagulation. I would consider low dose Eliquis because of his chronic kidney disease once the medication has been approved by Neurology. 2. Coronary artery disease. I would continue aspirin 81 mg a day. 3. Cardiomyopathy. The patient is on a beta lalit. I would not recommend Aldactone, ZULEMA inhibitor nor ARB because of chronic kidney disease. 4. Previous implantation of a biventricular defibrillator. No recent discharges. 5. History of ventricular tachycardia. The patient is on amiodarone. 6. History of prostate cancer. 7. Hyperlipidemia. The patient is on a statin drug. 8. Sleep apnea. [facility] [address] [place] [address] CONSULTATION Name: SAJAN GARNETT Room #: 356-P ADM IN M.R.#: [id number] Admission: 05/06/19 ������������������ Attend Phys: Nigel Mejia MD Discharge: ������������������ Date of : 43 Report #: [id number] 9. History of paroxysmal supraventricular tachycardia. The patient had a previous ablation by Dr. Carlos. ��������������������������������������������� <ELECTRONICALLY SIGNED> ���������������������������������������� By: Julio Cesar Slaughter MD, FACC ��������������������������������������������� 05/07/19 1337 1629 0118 Julio Cesar Slaughter MD, FACC /nt
[2019-05-07] MEDS ORDERED: ELIQUIS2.5 MG PO (17:03)
[2019-05-07] MEDS ORDERED: LIPITOR40 MG PO (17:03)
[2019-05-07] MEDS ORDERED: PROTONIX40 M1 PO (17:03)
[2019-05-07 17:20] VITALS: BP 100/71
--- NOTE | 2019-05-10 18:02 | HC ---
[facility] [place] [address] [place] [address] CONSULTATION Name: SAJAN GARNETT Room #: 356-P [facility] IN M.R.#: [id number] Admission: 05/06/19 ������������������ Attend Phys: Nigel Mejia MD Discharge: 05/07/19 ������������������ Date of : 43 Report #: [id number] THIS REPORT FOR: //name// CC: Richard Mejia NEUROLOGY CONSULTATION HISTORY OF PRESENT ILLNESS: The patient is a 74-year-old male who has had 4 episodes of slurred speech, right facial droop and right upper extremity weakness. He has not come to the hospital for all these events, but his daughter, who is in the room today, states that this event was the most long-lasting. However, after 15 minutes, he began to improve and has reached his baseline today. The patient states that he came to the hospital in March of this year for similar symptoms and had a workup then. At that point, he was on aspirin and was switched to Plavix. The patient states that since he has been to the hospital, he has been seen by Cardiology and is now going to be switched to warfarin. He is typically followed by Dr. Mckinnon and last had an echocardiogram 2 months ago. He also had an echocardiogram 03/24/2019, which showed no evidence of thrombus or shunt. At that time, he also had a carotid ultrasound and that was basically unremarkable as well. PAST MEDICAL HISTORY: Cardiac arrhythmia, hyperlipidemia, chronic kidney disease and ventricular tachycardia. PAST SURGICAL HISTORY: Surgery for thyroid goiter, abdominal aortic aneurysm graft. MEDICATIONS: At home, atorvastatin 40 mg daily, Coreg 12.5 mg b.i.d., Plavix 75 mg daily, Zetia 10 mg daily, Flomax 0.4 mg at bedtime, furosemide 40 mg daily and pantoprazole 40 mg daily. ALLERGIES: IODINE AND PENICILLIN. PHYSICAL EXAMINATION: VITAL SIGNS: Temperature 36.7, pulse rate 59, respiratory rate 16, blood pressure 100/71 and bedside pulse oximetry 97% on room air. NEUROLOGIC EXAMINATION: Cranial nerves 2-12 are grossly intact. Motor exam demonstrates symmetrical strength in all 4 extremities, with tone and bulk normal. Reflexes are symmetrical throughout. Plantar responses are flexor. Coordination reveals intact [id number]. Gait was not tested. LABORATORY DATA: Hematology 5.4, hemoglobin 12.6, hematocrit 38.7 and MCV 94. INR 1.2. Urinalysis negative. Chemistry: Sodium 141, potassium 4.1, chloride 105, carbon dioxide 21, BUN 55, creatinine 2.6, GFR 29 and glucose 102. IMPRESSION: This patient has had a transient ischemic attack. This appears to [address] [address] CONSULTATION Name: SAJAN GARNETT Room #: 356-P [facility] IN M.R.#: [id number] Admission: 05/06/19 ������������������ Attend Phys: Nigel Mejia MD Discharge: 05/07/19 ������������������ Date of : 43 Report #: [id number] be the third or fourth transient ischemic attack that he has had. The patient tells me that he is going to be switched to warfarin as per Cardiology. However, review of the note from Cardiology states that the patient will be switched to Eliquis rather than aspirin and Plavix. This, I feel, is a good option since he has had three or four of these TIA-like events and is at increased risk for stroke. Aside from the switch to Eliquis, there are no further medication recommendations and no further diagnostic studies that need to be done. I thank you for your kind referral, . ��������������������������������������������� <ELECTRONICALLY SIGNED> ���������������������������������������� By: Jolly Mendez DO ��������������������������������������������� 05/10/19 1802 1544 [id number] Jolly Mendez DO /nt
--- NOTE | 2019-05-14 10:01 | HC ---
[facility] [place] [address] [place] [address] CONSULTATION Name: SAJAN GARNETT Room #: 356-[facility] IN M.R.#: [id number] Admission: 05/06/19 ������������������ Attend Phys: Nigel Mejia MD Discharge: 05/07/19 ������������������ Date of : 43 Report #: [id number] THIS REPORT FOR: //name// CC: Richard Mejia DATE OF SERVICE: 05/06/2019 HISTORY OF PRESENT ILLNESS: The patient is a 74-year-old -H[place]ian male who was admitted with right upper extremity weakness and slurred speech. He feels that he has had a decline in his function from premorbid. He is not a candidate for an MRI as he has a prior implantable cardiac defibrillator. CT of the head did not show any acute process. Neurology is involved and I do not see their consult note up as of yet. He is also being treated for some acute renal insufficiency. We are seeing him in rehabilitation medicine consultation. He denies any swallowing problems, visual issues other neuro changes. He notes he is right handed. PAST MEDICAL HISTORY: Includes congestive heart failure, decreased left ventricular function 20-25%. He has had the implantable cardiac defibrillator as noted above, hypertension and coronary artery disease, status post stents. COPD, CHF, ischemic cardiomyopathy, syncope and symptomatic bradycardia. MEDICATIONS: Please see the full medication listing. This includes vitamins, herbals, and supplements per report. ALLERGIES: PENICILLIN AND IODINATED CONTRAST. HABITS: Former tobacco smoker, quit greater than a year ago. No history of alcohol abuse. SOCIAL HISTORY: Lives in a house with his , 7 next [address] in. works outside the house. The patient is retired, ambulatory without gait aids, driving in the community. REVIEW OF SYSTEMS: No current complaints of chest pain, shortness of breath or abdominal discomfort. Notes his right arm does not work well. His notes that his speech is slurred and he has had a change in his speech from premorbid. No focal extremity pain complaints. No fever or chills. PHYSICAL EXAMINATION: GENERAL: A 74-year-old -Haitian right-handed male, in no obvious distress. He is sleepy, but easily arousable. NEUROLOGIC: He may have some mild dysarthria. He follows basic 1 step commands. Decreased verbal output tends to defer to his . I could not detect any obvious word finding problems. Facies appeared to be symmetric. [facility] [address] [place] [address] CONSULTATION Name: SAJAN GARNETT Room #: 356-P [facility] IN Paul.R.#: [id number] Admission: 05/06/19 ������������������ Attend Phys: Nigel Mejia MD Discharge: 05/07/19 ������������������ Date of : 43 Report #: [id number] VITAL SIGNS: Temperature 97.4, pulse 57, respirations 13, blood pressure 110/78. EOMs appeared to be full. No obvious visual field neglect to confrontation. EXTREMITIES: He does have functional range of motion and strength of the left upper and left lower extremity. Right upper extremity reveals decreased strength grade 4- to 3+/5. Decreased coordination, decreased fine finger dexterity, some decreased [id number]. Tone slightly decreased. Negative Colindres's. Right lower extremity strength appeared to be at least grade 4-/5. DTRs are 1-2. He is currently needing contact assistance as far as ambulation without gait aids and this will be further assessed by physical therapy. ASSESSMENT: A 74-year-old right-handed -Haitian male with the following problem list: 1. Clinical evidence of a cerebrovascular accident with right-sided weakness, right upper extremity and some mild dysarthria. 2. Functional mobility and ADL deficits secondary to #1. 3. Acute on chronic kidney disease with dehydration. 4. History of chest pain with elevated troponin. Cardiology consulted. 5. Hypertension. 6. Nonischemic cardiomyopathy. 7. Hyperlipidemia. 8. Coronary artery disease, status post cardiac stents. 9. History of gout. 10. Abdominal aortic aneurysm. PLAN: Neurology and Cardiology are involved. Therapy evaluations to be undertaken. Supportive is present. We will need to see how the patient does in therapies and be glad to follow along with you regarding his rehab therapy needs. ��������������������������������������������� <ELECTRONICALLY SIGNED> ���������������������������������������� By: Julio Cesar Giron MD ��������������������������������������������� 05/14/19 1001 1252 1516 Julio Cesar Giron MD /nt
== END 2019-05-07 17:54 | disposition home or self-care (01) | DRG 64 ==
LOC: ER 08:21 → 3W 09:43 → EROBS 09:43 → 3W 10:40
PROVIDERS: Emergency Medicine; Nurse Practitioner; ADMIT Internal Medicine
DX: I63.9 Cerebral infarction, unspecified (principal); G93.41 Metabolic encephalopathy; N17.9 Acute kidney failure, unspecified; I50.22 Chronic systolic (congestive) heart failure; I13.0 Hypertensive heart and chronic kidney disease with heart failure and stage 1 through stage 4 chronic kidney disease, or unspecified chronic kidney disease; N18.4 Chronic kidney disease, stage 4 (severe); I25.10 Atherosclerotic heart disease of native coronary artery without angina pectoris; I25.5 Ischemic cardiomyopathy; M10.9 Gout, unspecified; E86.0 Dehydration; E78.5 Hyperlipidemia, unspecified; I71.4 Abdominal aortic aneurysm, without rupture; K21.9 Gastro-esophageal reflux disease without esophagitis; D63.1 Anemia in chronic kidney disease; Z79.82 Long term (current) use of aspirin; Z79.899 Other long term (current) drug therapy; Z95.5 Presence of coronary angioplasty implant and graft; Z82.49 Family history of ischemic heart disease and other diseases of the circulatory system; Z85.46 Personal history of malignant neoplasm of prostate; Z95.0 Presence of cardiac pacemaker; Z95.820 Peripheral vascular angioplasty status with implants and grafts; Z88.0 Allergy status to penicillin; Z91.041 Radiographic dye allergy status; Z87.891 Personal history of nicotine dependence
CPT/HCPCS: 10879

== ENCOUNTER 2019-05-11 21:39 | Inpatient (IN) | payer OTHER ==
[~2019-05-11] VITALS: Ht 175.3 cm; Wt 73.0 kg
[~2019-05-11 21:39] MED LIST changes: +ELIQUIS2.5 MG PO; +SODIUM BICARBO650 M3 PO
[2019-05-11 21:42] VITALS: BP 107/69
[2019-05-11 22:31] LABS: HEMOGLOBIN 12.5 gm/dL (14.0-18.0); MCH 30.7 pg (26.0-34.0); MCHC 32.1 g/dL (28.0-37.0); MCV 95.4 fL (80.0-100.0); PLATELET COUNT 206 thou/uL (150-400); RBC 4.08 mil/uL (4.50-6.00); RDW 14.6 % (10.5-14.5); WBC 5.8 thou/uL (4.0-11.0)
[2019-05-11] MEDS ORDERED: BAYER CHEWABLE81 MG PO (23:01)
[2019-05-11] MEDS ORDERED: LOSARTAN POTASS50 MG PO (23:01)
[2019-05-11 23:13] LABS: CALCIUM 8.1 mg/dL (8.5-10.1); CREATININE 3.5 mg/dL (0.7-1.3); POTASSIUM 4.3 mmol/L (3.5-5.1)
[2019-05-11 23:23] LABS: ALBUMIN 3.1 g/dL (3.4-5.0); MAGNESIUM 2.3 mg/dL (1.8-2.4); TOTAL BILIRUBIN 0.3 mg/dL (<0.1-1.0); TOTAL PROTEIN 8.4 g/dL (6.4-8.2); TROPONIN-I 0.2 ng/mL (<0.06)
[2019-05-11 23:26] LABS: ABSOLUTE NEUTROPHILS 2.5 thou/uL (1.4-8.2); PLATELET ESTIMATE NORMAL
[2019-05-11 23:57] LABS: URINE BILIRUBIN NEGATIVE (Negative); URINE BLOOD NEGATIVE (Negative); URINE CLARITY CLEAR; URINE COLOR YELLOW; URINE GLUCOSE-RANDOM* NEGATIVE (Negative); URINE KETONES NEGATIVE (Negative); URINE LEUKOCYTES-REFLEX NEGATIVE (Negative); URINE NITRITE-REFLEX NEGATIVE (Negative); URINE PROTEIN (DIPSTICK) NEGATIVE (Negative); URINE UROBILINOGEN 0.2 E.U./dl (0.2-1.0)
[2019-05-12] VITALS (10 sets, daily range): BP systolic 110–118; BP diastolic 69–83
[2019-05-12] MEDS ORDERED: CARVEDILOL6.25 M1 PO (00:52)
[2019-05-12 05:34] LABS: CALCIUM 7.9 mg/dL (8.5-10.1); POTASSIUM 4.4 mmol/L (3.5-5.1)
--- NOTE | 2019-05-12 05:59 | NUR ---
PT ARRIVED TO UNIT APPROX 0100 IN STABLE CONDITION, ABLE TO WALK FROM ER CART INTO ROOM. ADMISSION AND ASSESSMENT COMPLETED, CONSENTS SIGNED INCLUDING TELEMETRY RUNNER INFORMATIONAL. PT IS A&Ox4, SLIGHTLY FLAT AFFECT, SIGNIFICANT CARDIAC HISTORY; ADMITS WITH LOW BP WHILE BEING SEEN AT [employer], CONTINUED TO BE LOW IN THE EVENING 90'S/30'S. PT ALSO REPORTED FEELING SLIGHTLY WEAK; HE STATES HE HAD A STROKE ABOUT A WEEK AGO AND HAS SOME RESIDUAL WEAKNESS TO RIGHT ARM AND LEG. USES A CANE TO AMBULATE, HAVE MADE A FALL RISK. PT HAS A PACER/DEFIBR, HR 55-60, AND AV-PACED. BP WNL, 110'S/50-60'S. GAVE ONE BAG OF IV FLUIDS PER ER; PT THEN REPORTED FEELING SOA AND HAD NEW, FAINT CRACKLES IN LUNG BASES; OBTAINED ORDERS FOR RT TREATMENTS PRN AND TO D/C FLUIDS; PT NOW REPORTS IMPROVED BREATHING. NO OTHER CONCERNS, WILL CONTINUE TO MONITOR.
--- NOTE | 2019-05-12 08:02 | EKG ---
[place] [address] [facility] [address] ELECTROCARDIOGRAM REPORT Name: SAJAN GARNETT Room #: 358-P ADM IN M.R.#: [id number] ������������������ Admission: 05/11/19 ������������������ Attend Phys: Keith Kaiser Discharge: ������������������ Date of : 43 Report #: [id number] ����������������������������������������������������������������� [id number] THIS REPORT FOR: //name// [facility] ED Test Date: 2019-05-11 Test Time: 22:21:20 Pat Name: SAJAN GARNETT Department: Room: 358 Gender: M Recruiting Internship: SAMIRA : 1945 Requested By: Obdulio Eller Order Number: [id number] MD: Darshan Carmona Measurements Intervals [place] Rate: 60 P: 0 NH: 155 QRS: 235 QRSD: 172 T: 84 QT: 499 QTc: 499 Interpretive Statements A-V dual-paced rhythm No further analysis attempted due to paced rhythm Compared to ECG 05/06/2019 10:22:24 No significant change was found Electronically Signed On 05-12-2019 8:02:37 CDT by Darshan Carmona [email or web address] ��������������������������������������������� <ELECTRONICALLY SIGNED> ���������������������������������������� By: Darshan Carmona MD, [facility] ��������������������������������������������� 07/01/26 802 20 20 Darshan Carmona MD, [facility] /EPI
--- NOTE | 2019-05-12 10:38 | NUR ---
Assumed care of pt at 0700. Pt alert and oriented x4. No c/o pain. Pt requests Lasix this am. Dr notified. Stated will resume lasix tomorrow instead of today. PRN breathing treatments ordered. PT/OT consulted. Pt flat affect. Will continue to monitor and assist with needs.
--- NOTE | 2019-05-12 12:21 | NUR ---
assessment: CM REVIEWED CHART AND MET WITH PATIENT AT THE BEDSIDE. PT WAS JUST RECENTLY DISCHARGED FROM [facility] LAST WEEK. PT LIVES IN A HOUSE WITH HIS . PT REPORTS HE ENTERS THROUGH THE GARAGE AND THEN HAS ABOUT 14 STEPS WITH HANDRAILS TO THE MAIN LEVEL. PT REPORTS HE AMBULATES INDEPENDENTLY. PT REPORTS HE HAS A SHOWER CHAIR IN THE SHOWER AND IS INDEPENDENT WITH ADLS. CM DISCUSSED ROLE. PT FEELS HE WOULED BENEFIT FROM HH AT DISCHARGE AND HAS NO PREFERENCE OF AGENCY. REFERRAL WAS SENT TO [facility]. WHEN [facility] IS MEDICALLY STABLE TO DISCHARGE NOTIFY [facility] [phone] AND FAX DISCHARGE ORDERS/SUMMARY [phone].
--- NOTE | 2019-05-14 08:48 | HC ---
[facility] [place] [address] [place] [address] CONSULTATION Name: SAJAN GARNETT Room #: 358-P [facility] IN M.R.#: [id number] Admission: 05/11/19 ������������������ Attend Phys: Keith Kaiser Discharge: 05/12/19 ������������������ Date of : 43 Report #: [id number] THIS REPORT FOR: //name// CC: Richard Kaiser REASON FOR CONSULTATION: Chronic kidney disease. REASON FOR PRESENTATION: Low blood pressure. HISTORY OF PRESENT ILLNESS: This is a 74-year-old with extensive past medical history including chronic kidney disease, aortic aneurysm post repair, prostate cancer, ischemic cardiomyopathy, coronary artery disease. He follows with [facility]. His baseline creatinine is usually in the upper 3s. He was in his kidney clinic yesterday and was told that his blood pressure had been low. Carvedilol dose has been reduced. He is known to have severe ischemic cardiomyopathy with an ejection fraction of around 15%. Currently, agreement is to continue with the medical treatment. The patient is maintained on multiple medications including amiodarone, losartan, carvedilol. When he visited with his fitness and wellness instructor yesterday the dose of his carvedilol has been reduced. He went home, however, he continued to have some issues with low blood pressure and decided to present for further evaluation and management. He received some IV fluid in the Emergency Room. Blood pressure is up to 110/75. PAST MEDICAL HISTORY: Extensive and include the followin. Hypertension. 2. Congestive heart failure with cardiomyopathy and ejection fraction of around 10%. 3. Ventricular tachycardia. 4. Coronary artery disease. 5. Gout. 6. Prostate cancer status post AICD. 7. Aortic aneurysm with repair. 8. Stroke. 9. Stage 4 chronic kidney disease. FAMILY HISTORY: Significant for heart disease. SOCIAL HISTORY: Denies drug or alcohol abuse. MEDICATIONS: 1. Carvedilol. 2. Lasix. 3. Aspirin. 4. Losartan. 5. Ezetimibe. [facility] [address] [place] [address] CONSULTATION Name: SAJAN GARNETT Room #: 358-P [facility] IN M.R.#: [id number] Admission: 05/11/19 ������������������ Attend Phys: Keith Kaiser Discharge: 05/12/19 ������������������ Date of : 43 Report #: [id number] ALLERGIES: IODINATED CONTRAST AND PENICILLIN. REVIEW OF SYSTEMS: GENERAL: No fever or chills, but significant weakness. CARDIOVASCULAR: No chest pain or palpitation. PULMONARY: No cough or hemoptysis. GASTROINTESTINAL: No nausea or vomiting. MUSCULOSKELETAL: No muscle pains. No back pain. SKIN: No rash or ulceration. NEUROLOGICAL: No headache, but he has significant dizziness or lightheadedness. PHYSICAL EXAMINATION: VITAL SIGNS: Blood pressure is stable at 110/75. HEAD AND NECK: No jugular venous distention. CHEST: No crackles. CARDIOVASCULAR: Regular with no rub detected. ABDOMEN: Soft, nontender with no hepatosplenomegaly. LOWER EXTREMITIES: No edema. LABORATORY AND DIAGNOSTIC DATA: Laboratory values revealed that his BUN is down to 65 from 72, creatinine is down from 3.5 to 3. Hemoglobin is 12.5. Urine is clear. Chest x-ray: Mild congestions. ASSESSMENT, IMPRESSION AND PLAN: 1. Acute kidney injury due to low blood pressure. 2. Chronic kidney disease with baseline creatinine of around 3. 3. Advanced cardiomyopathy with ejection fractions of around 10%. Status post AICD. 4. Status post aortic aneurysm repair. 5. Prostate cancer. 6. The patient low blood pressure has contributed to the worsening of the kidney function; however, this has resolved. Continue to hold losartan and carvedilol. He is not in need for any diuretics. 7. He received some IV fluid yesterday. 8. Cardiology will be managing his cardiac issues. 9. From the renal perspective, his creatinine has been trending down and he is back to his baseline. I will contact his fitness and wellness instructor. ��������������������������������������������� <ELECTRONICALLY SIGNED> ���������������������������������������� By: Bridget Hinds MD ��������������������������������������������� 05/14/19 0848 0833 0959 Bridget Hinds MD /nt
== END 2019-05-12 17:52 | disposition home health service (06) | DRG 683 ==
LOC: ER 21:39 → 3W 23:41 → EROBS 23:41 → 3W 05-12 00:30
PROVIDERS: Emergency Medicine; Nurse Practitioner Acute Care; ADMIT Hospitalist
DX: N17.9 Acute kidney failure, unspecified (principal); I47.2 Ventricular tachycardia; I50.22 Chronic systolic (congestive) heart failure; I13.0 Hypertensive heart and chronic kidney disease with heart failure and stage 1 through stage 4 chronic kidney disease, or unspecified chronic kidney disease; I95.2 Hypotension due to drugs; N18.4 Chronic kidney disease, stage 4 (severe); E78.5 Hyperlipidemia, unspecified; M10.9 Gout, unspecified; I25.5 Ischemic cardiomyopathy; T50.905A Adverse effect of unspecified drugs, medicaments and biological substances, initial encounter; I73.9 Peripheral vascular disease, unspecified; I48.91 Unspecified atrial fibrillation; I25.10 Atherosclerotic heart disease of native coronary artery without angina pectoris; Z95.5 Presence of coronary angioplasty implant and graft; Z86.73 Personal history of transient ischemic attack (TIA), and cerebral infarction without residual deficits; Z88.0 Allergy status to penicillin; Z91.041 Radiographic dye allergy status; Z79.899 Other long term (current) drug therapy; Z79.82 Long term (current) use of aspirin; Z85.46 Personal history of malignant neoplasm of prostate; Z95.810 Presence of automatic (implantable) cardiac defibrillator; Z82.49 Family history of ischemic heart disease and other diseases of the circulatory system; Z87.891 Personal history of nicotine dependence; Y92.89 Other specified places as the place of occurrence of the external cause

== ENCOUNTER 2019-05-29 09:00 | Emergency (ER) | payer OTHER ==
[~2019-05-29] VITALS: Ht 175.3 cm; Wt 83.9 kg
[~2019-05-29 09:00] MED LIST changes: +BAYER CHEWABLE81 MG PO; +CARVEDILOL6.25 M1 PO; +LOSARTAN POTASS50 MG PO
[2019-05-29 09:02] VITALS: BP 145/85
[2019-05-29] MEDS ORDERED: CORTISPORIN OTI10 ML OTIC (09:28)
== END 2019-05-29 09:33 | disposition home or self-care (01) ==
LOC: ER 09:00
DX: H92.01 Otalgia, right ear (principal); F17.210 Nicotine dependence, cigarettes, uncomplicated; I50.9 Heart failure, unspecified; E78.00 Pure hypercholesterolemia, unspecified; I25.10 Atherosclerotic heart disease of native coronary artery without angina pectoris; M10.9 Gout, unspecified; I42.9 Cardiomyopathy, unspecified; Z85.46 Personal history of malignant neoplasm of prostate; Z95.5 Presence of coronary angioplasty implant and graft; Z86.73 Personal history of transient ischemic attack (TIA), and cerebral infarction without residual deficits; Z91.041 Radiographic dye allergy status; Z88.0 Allergy status to penicillin

== ENCOUNTER 2019-06-04 03:24 | Emergency (ER) | payer OTHER ==
[~2019-06-04] VITALS: Ht 175.3 cm; Wt 72.6 kg
[~2019-06-04 03:24] MED LIST changes: +CORTISPORIN OTI10 ML OTIC
[2019-06-04 03:52] LABS: ABSOLUTE NEUTROPHILS 4.4 thou/uL (1.4-8.2); BASOPHILS 1.2 % (0.0-2.0); EOSINOPHILS 2.4 % (0.0-3.0); HEMATOCRIT 37.1 % (42.0-52.0); HEMOGLOBIN 11.8 gm/dL (14.0-18.0); LYMPHOCYTES 27.2 % (24.0-44.0); MCH 30.5 pg (26.0-34.0); MCHC 31.9 g/dL (28.0-37.0); MCV 95.5 fL (80.0-100.0); MONOCYTES 7.3 % (1.0-8.0); PLATELET COUNT 246 thou/uL (150-400); POLYS 61.9 % (36.0-66.0); RBC 3.88 mil/uL (4.50-6.00); RDW 14.2 % (10.5-14.5); WBC 7.2 thou/uL (4.0-11.0)
[2019-06-04 03:54] LABS: ANION GAP 10 mmol/L (7-16); BUN 39 mg/dL (7-18); CALCIUM 9.2 mg/dL (8.5-10.1); CHLORIDE 107 mmol/L (98-107); CO2 23 mmol/L (21-32); CREATININE 2.3 mg/dL (0.7-1.3); GLUCOSE 113 mg/dL (74-106); POTASSIUM 4.5 mmol/L (3.5-5.1); SODIUM 140 mmol/L (136-145)
[2019-06-04 04:02] LABS: APTT 27.1 Seconds (24.5-32.8); INR 1.2; PROTIME 12.1 Seconds (9.3-11.4)
[2019-06-04 04:05] LABS: ALBUMIN 3.1 g/dL (3.4-5.0); MAGNESIUM 1.9 mg/dL (1.8-2.4); SGOT 14 U/L (15-37); SGPT 16 U/L (30-65); TOTAL BILIRUBIN 0.5 mg/dL (<0.1-1.0); TOTAL PROTEIN 8.6 g/dL (6.4-8.2); TROPONIN-I <0.06 ng/mL (<0.06)
[2019-06-04] MEDS ORDERED: VENTOLIN HFA 1818 GM INH (04:52)
[2019-06-04 05:22] VITALS: BP 121/80
--- NOTE | 2019-06-04 09:20 | EKG ---
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: [place] [id number] : 1945 Requested By: Obdulio Eller Order Number: [id number] MD: Darshan Carmona Measurements Intervals Platter Rate: 73 P: 71 CT: 168 QRS: 217 QRSD: 148 T: 72 QT: 445 QTc: 491 Interpretive Statements Atrial-sensed ventricular-paced complexes No further analysis attempted due to paced rhythm Compared to ECG 05/11/2019 22:21:20 No significant changes Electronically Signed On 06-04-2019 9:20:31 CDT by Darshan Carmona [email or web address] ��������������������������������������������� <ELECTRONICALLY SIGNED> ���������������������������������������� By: Darshan Carmona MD, [facility] ��������������������������������������������� 06/04/19 0920 9 9 Darshan Carmona MD, FAC /EPI
== END 2019-06-04 05:22 | disposition home or self-care (01) ==
LOC: ER 03:24
PROVIDERS: Emergency Medicine
DX: N18.9 Chronic kidney disease, unspecified (principal); I50.9 Heart failure, unspecified; I25.10 Atherosclerotic heart disease of native coronary artery without angina pectoris; M10.9 Gout, unspecified; Z85.46 Personal history of malignant neoplasm of prostate; Z86.73 Personal history of transient ischemic attack (TIA), and cerebral infarction without residual deficits; Z79.899 Other long term (current) drug therapy; Z79.82 Long term (current) use of aspirin; Z88.0 Allergy status to penicillin; Z91.041 Radiographic dye allergy status

== ENCOUNTER 2019-06-14 09:30 | Emergency (ER) | payer OTHER ==
[~2019-06-14] VITALS: Ht 175.3 cm; Wt 72.6 kg
[2019-06-14 09:50] LABS: URINE BILIRUBIN NEGATIVE (Negative); URINE BLOOD NEGATIVE (Negative); URINE CLARITY CLEAR; URINE COLOR YELLOW; URINE GLUCOSE-RANDOM* NEGATIVE (Negative); URINE KETONES NEGATIVE (Negative); URINE LEUKOCYTES NEGATIVE (Negative); URINE NITRITE NEGATIVE (Negative); URINE PROTEIN (DIPSTICK) TRACE (Negative); URINE UROBILINOGEN 0.2 E.U./dl (0.2-1.0)
[2019-06-14] MEDS ORDERED: NITROGLYCERIN0.4 MG SUBLING (09:56)
[2019-06-14] MEDS ORDERED: FLOMAX0.4 MG PO (09:56)
[2019-06-14 09:59] LABS: ABSOLUTE NEUTROPHILS 3.2 thou/uL (1.4-8.2); BASOPHILS 1.4 % (0.0-2.0); EOSINOPHILS 3.6 % (0.0-3.0); HEMATOCRIT 37.5 % (42.0-52.0); HEMOGLOBIN 12.2 gm/dL (14.0-18.0); LYMPHOCYTES 26.7 % (24.0-44.0); MCH 30.6 pg (26.0-34.0); MCHC 32.5 g/dL (28.0-37.0); MCV 94.3 fL (80.0-100.0); MONOCYTES 11.2 % (1.0-8.0); PLATELET COUNT 199 thou/uL (150-400); POLYS 57.1 % (36.0-66.0); RBC 3.97 mil/uL (4.50-6.00); RDW 15.1 % (10.5-14.5); WBC 5.7 thou/uL (4.0-11.0)
[2019-06-14 10:09] LABS: ANION GAP 8 mmol/L (7-16); BUN 48 mg/dL (7-18); CALCIUM 8.9 mg/dL (8.5-10.1); CHLORIDE 108 mmol/L (98-107); CO2 24 mmol/L (21-32); CREATININE 2.3 mg/dL (0.7-1.3); GLUCOSE 102 mg/dL (74-106); POTASSIUM 4.1 mmol/L (3.5-5.1); SODIUM 140 mmol/L (136-145)
[2019-06-14 10:18] LABS: ALBUMIN 3.1 g/dL (3.4-5.0); SGOT 15 U/L (15-37); SGPT 16 U/L (30-65); TOTAL BILIRUBIN 0.3 mg/dL (<0.1-1.0); TOTAL PROTEIN 8.2 g/dL (6.4-8.2); TROPONIN-I <0.06 ng/mL (<0.06)
[2019-06-14 12:41] VITALS: BP 109/79
--- NOTE | 2019-06-14 16:12 | EKG ---
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: CONG : 1945 Requested By: Order Number: [id number] MD: Octavio Cameron Measurements Intervals [place] Rate: 61 P: 72 PA: 185 QRS: 217 QRSD: 133 T: 87 QT: 465 QTc: 469 Interpretive Statements Atrial-sensed ventricular-paced complexes No further analysis attempted due to paced rhythm Compared to ECG 06/04/2019 03:30:32 No significant changes Electronically Signed On 06-14-2019 16:11:58 CDT by Octavio Cameron [email or web address] ��������������������������������������������� <ELECTRONICALLY SIGNED> ���������������������������������������� By: Octavio Cameron MD ��������������������������������������������� 06/14/19 1611 9 9 Octavio Cameron MD /MEJIA
== END 2019-06-14 12:41 | disposition home or self-care (01) ==
LOC: ER 09:30
PROVIDERS: Emergency Medicine
DX: I50.9 Heart failure, unspecified (principal); M10.9 Gout, unspecified; E78.5 Hyperlipidemia, unspecified; I25.10 Atherosclerotic heart disease of native coronary artery without angina pectoris; F17.210 Nicotine dependence, cigarettes, uncomplicated; Z88.0 Allergy status to penicillin; Z91.041 Radiographic dye allergy status; Z86.73 Personal history of transient ischemic attack (TIA), and cerebral infarction without residual deficits; Z95.2 Presence of prosthetic heart valve; Z85.46 Personal history of malignant neoplasm of prostate; Z90.89 Acquired absence of other organs

== ENCOUNTER → 2019-07-02 | Outpatient (CLI) | payer OTHER ==
--- NOTE | 2019-07-04 20:24 | SLE ---
[facility] [place] [address] [place] [address] POLYSOMNOGRAPHY STUDY Name: SAJAN GARNETT Room #: [facility].#: [id number] Admission: 07/02/19 Attend Phys: Shaggy Zimmerman MD Discharge: Date of : 41 Report #: [id number] THIS REPORT FOR: //name// CC: Shaggy Martinez DATE OF SERVICE: 07/03/2019 SLEEP STUDY ATTENDING PHYSICIAN: Dr. Gil Horne. The patient is a 74-year-old who weighs 160 pounds with a BMI of 23.6. The patient has moderate subjective hypersomnia with an Weir score of 12. The patient has a history of severe cardiomyopathy with an EF of 10%. The patient was referred back to sleep lab to rule out sleep apnea. During the night study, the patient spent 445 minutes in bed and slept for 284 minutes with a low sleep efficiency of 64%. Sleep latency was 31 minutes with a REM latency of 176 minutes. Overall, sleep architecture showed increased sleep, normal stage 2 sleep, absent slow wave and reduced REM sleep, which was 15% of the total sleep time. During the night of the study, the patient had 230 apneas. There were 212 central apneas, 9 mixed and 9 obstructive apneas and 12 hypopneas. The patient's apnea hypopnea index was 51 per hour with a REM index of 37 per hour and a supine index of 56 per hour. Gera lizama breathing pattern seen throughout the night. EKG monitoring revealed an average heart rate of 61 beats per minute. There were PVCs seen throughout the night including couplets and triplets. PLMS were seen at an index of 29 per hour and 6 per hour caused EEG arousals. Nocturnal oximetry study revealed an average oxygen saturation of 93% with a lowest of 83%. Twenty minutes were spent in oxygen saturation less than 89%. Due to severe central apneas, CPAP was not initiated. IMPRESSION: 1. Severe central sleep apnea. The patients total AHI was 51/hr which included 212 central apneas. 2. Nocturnal hypoxia secondary to sleep apnea. 3. Moderate periodic limb movements of sleep. 4. Reduced sleep efficiency resulting from sleep maintenance insomnia. [facility] [address] [place] [address] POLYSOMNOGRAPHY STUDY Name: SAJAN GARNETT Room #: [facility].#: [id number] Admission: 07/02/19 Attend Phys: Shaggy Zimmerman MD Discharge: Date of : 41 Report #: [id number] 5. Gera-Lizama breathing pattern noticed throughout the night consistent with the patient's known severe cardiomyopathy. RECOMMENDATIONS: 1. The optimum treatment of patient's severe central sleep apnea should should include optimization of his cardiac status with effective treatment of his severe cardiomyopathy. 2. Patient may return to the sleep lab for BiPAP titration study. The patient may need a backup rate. Although it does not guarentee a definite resolution of his central apneas. 4. ASV is not indicated in the presence of severe cardiomyopathy. 5. PLMS does not need to be treated unless the patient has symptoms of restless legs during the day. 6. Follow up with Cardiology regarding abnormal EKG. <ELECTRONICALLY SIGNED> By: Shaggy Zimmerman MD 07/04/194 1635 1742 Shaggy Zimmerman MD /nt
== END ==
LOC: SLEEPLAB 13:01
DX: G47.33 Obstructive sleep apnea (adult) (pediatric) (principal); G47.30 Sleep apnea, unspecified; R09.02 Hypoxemia; Z88.8 Allergy status to other drugs, medicaments and biological substances; Z88.0 Allergy status to penicillin

== ENCOUNTER → 2019-07-23 | Outpatient (CLI) | payer OTHER ==
--- NOTE | 2019-07-25 21:43 | SLE ---
[facility] [place] [address] [place] [address] POLYSOMNOGRAPHY STUDY Name: SAJAN GARNETT Room #: REG [facility].#: [id number] Admission: 07/23/19 ������������������ Attend Phys: Shaggy Zimmerman MD Discharge: ������������������ Date of : 43 Report #: [id number] THIS REPORT FOR: //name// CC: Shaggy Horne MD DATE OF SERVICE: 07/23/2019 SLEEP STUDY ATTENDING PHYSICIAN: Dr. Gil Horne. The patient is 74 years old who weighs 160 pounds with a BMI of 23.6. The patient has severe cardiomyopathy with an EF of 10%. The patient had a previous sleep study and was found to have severe central sleep apnea along with Gera-Lizama breathing pattern related to the patient's severe cardiomyopathy. The patient was referred back for a CPAP titration study. It was recommended that usually positive pressure therapy or ASV usually does not work in patients with these conditions and treatment of underlying condition is usually recommended. During the night study, the patient spent 516 minutes in bed and slept for 347 minutes with a low sleep efficiency of 67%. Sleep latency was 11.4 minutes with a REM latency of 122 minutes. Overall, sleep architecture showed increased stage 1 and stage 2 sleep, absent slow wave and reduced REM sleep, which was 12% of the total sleep time. EKG monitoring revealed an average heart rate of 60 beats per minute. It was paced rhythm. There were PVCs seen throughout the study. PLMS were seen at an index of 12 per hour and 3 per hour caused EEG arousals. The patient was started on CPAP at 6 cm of water and titrated up to 12 cm water. The patient continued to have severe central apneas throughout the study with ongoing Gera-Lizama breathing pattern. Optimum CPAP pressure was not achieved while the patient was titrated up to 12 cm water. At that pressure, the patient slept for 5 minutes with an AHI of 36 per hour. AHI remained in the high 30s with all the lower pressures due to central apneas. Oxygen saturations remained above 94%. Optimum PAP pressure was not achieved. IMPRESSION: 1. Severe central sleep apnea diagnosed by previous sleep study. This was related to the patient's underlying severe cardiomyopathy with an EF of 10%. 2. Reduced sleep efficiency resulting from sleep maintenance insomnia. 3. Gera-lizama breathing pattern throughout the study due to severe [facility] [address] [place] [address] POLYSOMNOGRAPHY STUDY Name: SAJAN GARNETT Room #: REG [facility] Robert#: [id number] Admission: 07/23/19 ������������������ Attend Phys: Shaggy Zimmerman MD Discharge: ������������������ Date of : 41 Report #: [id number] cardiomyopathy. 3. No clinically significant periodic limb movements. RECOMMENDATIONS: 1. Optimum CPAP pressure was not achieved on the night of the study due to persistent severe central apneas. As recommended before, the treatment of severe central sleep apnea related to the patient's underlying cardiomyopathy usually is not resolved with PAP therapy or ASV. Treatment is usually directed towards correction of underlying cardiomyopathy. 2. An auto BiPAP with a maximum IPAP of 18 and a minimum EPAP of 10 with pressure support of 4 with a backup rate of 10 can be tried with a download data in 30 days to assess for any improvement in persistent central apneas. 3. Follow up with Cardiology regarding patient's severe cardiomyopathy. ��������������������������������������������� <ELECTRONICALLY SIGNED> ���������������������������������������� By: Shaggy Zimmerman MD ��������������������������������������������� 07/25/19 2143 1542 1802 Shaggy Zimmerman MD /nt
== END ==
LOC: SLEEPLAB 16:29
DX: G47.30 Sleep apnea, unspecified (principal)

== ENCOUNTER 2019-08-09 09:39 | Emergency (ER) | payer OTHER ==
[~2019-08-09] VITALS: Ht 175.3 cm; Wt 68.0 kg
[2019-08-09 11:20] LABS: ABSOLUTE NEUTROPHILS 3.4 thou/uL (1.4-8.2); BASOPHILS 0.1 % (0.0-2.0); EOSINOPHILS 3.2 % (0.0-3.0); HEMATOCRIT 36.4 % (42.0-52.0); HEMOGLOBIN 11.8 gm/dL (14.0-18.0); MCH 30.2 pg (26.0-34.0); MCHC 32.3 g/dL (28.0-37.0); MCV 93.4 fL (80.0-100.0); MONOCYTES 8.6 % (1.0-8.0); PLATELET COUNT 213 thou/uL (150-400); POLYS 64.1 % (36.0-66.0); RDW 15.4 % (10.5-14.5); WBC 5.2 thou/uL (4.0-11.0)
[2019-08-09 11:29] LABS: ANION GAP 12 mmol/L (7-16); BUN 50 mg/dL (7-18); CALCIUM 9.1 mg/dL (8.5-10.1); CHLORIDE 110 mmol/L (98-107); CO2 20 mmol/L (21-32); CREATININE 2.6 mg/dL (0.7-1.3); GLUCOSE 99 mg/dL (74-106); POTASSIUM 4.4 mmol/L (3.5-5.1); SODIUM 142 mmol/L (136-145)
[2019-08-09 11:39] LABS: ALBUMIN 3.3 g/dL (3.4-5.0); SGOT 13 U/L (15-37); SGPT 13 U/L (30-65); TOTAL BILIRUBIN 0.6 mg/dL (<0.1-1.0); TOTAL PROTEIN 8.6 g/dL (6.4-8.2); TROPONIN-I <0.06 ng/mL (<0.06)
[2019-08-09 13:22] VITALS: BP 130/88
[2019-08-09] MEDS ORDERED: OXYGEN MISCELL (13:27)
--- NOTE | 2019-08-10 14:05 | EKG ---
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 Electronically Signed On 08-10-2019 14:05:51 CDT by Octavio Cameron [email or web address] <ELECTRONICALLY SIGNED> By: Octavio Cameron MD 08/10/19 1405 0945 0945 Octavio Cameron MD /MEJIA
== END 2019-08-09 13:22 | disposition home or self-care (01) ==
LOC: ER 09:39
PROVIDERS: Emergency Medicine
DX: R06.00 Dyspnea, unspecified (principal); I50.9 Heart failure, unspecified; E78.00 Pure hypercholesterolemia, unspecified; I25.10 Atherosclerotic heart disease of native coronary artery without angina pectoris; I42.9 Cardiomyopathy, unspecified; M10.9 Gout, unspecified; F17.210 Nicotine dependence, cigarettes, uncomplicated; Z95.0 Presence of cardiac pacemaker; Z91.041 Radiographic dye allergy status; Z88.0 Allergy status to penicillin; Z85.46 Personal history of malignant neoplasm of prostate; Z86.73 Personal history of transient ischemic attack (TIA), and cerebral infarction without residual deficits

== ENCOUNTER 2019-09-09 21:39 | Inpatient (IN) | payer OTHER ==
[~2019-09-09] VITALS: Ht 175.3 cm; Wt 71.2 kg
[~2019-09-09 21:39] MED LIST changes: +OXYGEN MISCELL
[2019-09-09 21:44] VITALS: BP 129/85
[2019-09-09 23:11] LABS: ABSOLUTE NEUTROPHILS 3.3 thou/uL (1.4-8.2); BASOPHILS 0.9 % (0.0-2.0); EOSINOPHILS 2.1 % (0.0-3.0); HEMATOCRIT 33.8 % (42.0-52.0); HEMOGLOBIN 10.8 gm/dL (14.0-18.0); MCH 29.5 pg (26.0-34.0); MCHC 31.9 g/dL (28.0-37.0); MCV 92.5 fL (80.0-100.0); MONOCYTES 7.3 % (1.0-8.0); PLATELET COUNT 224 thou/uL (150-400); POLYS 61.7 % (36.0-66.0); RBC 3.65 mil/uL (4.50-6.00); RDW 15.5 % (10.5-14.5); WBC 5.4 thou/uL (4.0-11.0)
[2019-09-09 23:21] LABS: ANION GAP 10 mmol/L (7-16); BUN 53 mg/dL (7-18); CHLORIDE 105 mmol/L (98-107); CO2 22 mmol/L (21-32); CREATININE 2.7 mg/dL (0.7-1.3); GLUCOSE 93 mg/dL (74-106); POTASSIUM 5.2 mmol/L (3.5-5.1); SODIUM 137 mmol/L (136-145)
[2019-09-09 23:22] LABS: APTT 28.3 Seconds (24.5-32.8); INR 1.2; PROTIME 12.2 Seconds (9.3-11.4)
[2019-09-09 23:30] LABS: URINE BILIRUBIN NEGATIVE (Negative); URINE BLOOD NEGATIVE (Negative); URINE CLARITY CLEAR; URINE COLOR YELLOW; URINE GLUCOSE-RANDOM* NEGATIVE (Negative); URINE KETONES NEGATIVE (Negative); URINE LEUKOCYTES-REFLEX NEGATIVE (Negative); URINE NITRITE-REFLEX NEGATIVE (Negative); URINE PROTEIN (DIPSTICK) NEGATIVE (Negative); URINE SPECIFIC GRAVITY 1.015 (1.005-1.035); URINE UROBILINOGEN 0.2 E.U./dl (0.2-1.0)
[2019-09-09 23:31] LABS: ALBUMIN 3.2 g/dL (3.4-5.0); MAGNESIUM 2.2 mg/dL (1.8-2.4); SGOT 20 U/L (15-37); SGPT < 6 U/L (30-65); TOTAL BILIRUBIN 0.8 mg/dL (<0.1-1.0); TOTAL PROTEIN 8.6 g/dL (6.4-8.2); TROPONIN-I <0.06 ng/mL (<0.06)
[2019-09-10] VITALS (7 sets, daily range): BP systolic 110–134; BP diastolic 71–88
[2019-09-10] MEDS ORDERED: ELIQUIS2.5 MG PO (01:43)
--- NOTE | 2019-09-10 05:13 | NUR ---
SHIFT NOTE: PATIENT A NEW ADMISSION FROM ED. ARRIVED IN THE UNIT AT APPROXIMATELY 0230. ALERT AND ORIENTED AND ABLE TO COMMUNICATE NEEDS. DENIES PAIN. AMBULATES WELL WITH A CANE. VITAL SIGN PER THE ORDER WITH NO MAJOR CONCERN. 02@2L/NC AND SATS IN THE UPPER 90'S. EDUCATION ON PLAN OF CARE AND VOICE UNDERSTANDING. DENIES OTHER MAJOR CONCERN OR COMPLAINT. WILL CONTINUE WITH CURRENT PLAN OF CARE AND TO MONITOR.
[2019-09-11 03:25] LABS: CALCIUM 8.9 mg/dL (8.5-10.1); POTASSIUM 4.7 mmol/L (3.5-5.1)
[2019-09-11 04:30] VITALS: BP 107/75
--- NOTE | 2019-09-11 06:31 | NUR ---
ASSESSMENT DOCUMENTED.PT RESTING IN NO ACUTE DISTRESS.A/OX4.VSS.PT C/O FEELING LIKE HIS BREATHING IS GETTING WORSE.O2 SAT 98%.VSS WNL.PT REQUESTED TO HAVE 4 ASPIRIN INDCATING THAT IS HOW HE MEDICATE HIMSELF AT HOME WHEN HE FEELS LIKE HIS BREATHING IS GETTING WORSE ALONG WITH NITROGLYCERIN AND INHALER.DENIES CHEST PAIN.PT EDUCATED ON THE USE OF ASA AND NITRO.PT INSISTED OF STICKING WITH HIS PRACTICE OF NEDICATING HIMSELF. PT ADMITTED OF HAVING HOME MEDS NITRO AND INHALER IN THE ROOM AND HE WAS PLANNING TO MEDICATE HIMSELF.EDUCATING ON THE EFFECTS THAT CAN OCCUR WHEN HE MEDICATES HIMSELF AND WE ARE MEDICATING HIM WELL HERE AT THE FACILITY.VOICED UNDERSTANDING AND PROMISED NOT TO TAKE ANY HOME MEDS.NOTIFIED PT PER HOSPITAL PROTOCOL,WE ARE SUPPOSED TO KEEP HIS HOME MEDS WITH US,REFUSED TO GIVE HIS MEDS,HOUSESUPERVISOR WAS NOTIFIED,TALKED TO PT BUT STIL PT REFUSED TO GIVE UP HIS MEDS PROMISING THAT HE WILL NOT TAKE OF ANY OF HIS MEDS.TYLENOL GIVEN TO HELP WITH BREATHING.PT HOPING TO GET DISCHARGED TODAY TO HOME.
[2019-09-11 07:53] VITALS: BP 112/77
--- NOTE | 2019-09-11 10:36 | NUR ---
AAOX4. CALM, COOPERATIVE. VPACED PER TELE. RENAL STUDIES NOTED. FREQUENT CHECKS; WILL CONTINUE TO MONITOR.
[2019-09-11 11:30] VITALS: BP 101/70
[2019-09-11 16:24] VITALS: BP 101/73
--- NOTE | 2019-09-11 18:35 | NUR ---
ASSUMED CARE AT 1300, SHIFT ASSESSMENT DONE, MEDS KEANU, VSS. DENIES ANY PAIN, NAUSEA, VOMITING. UP AD MAE, ON 1.5 L NC. WILL CONTINUE TO ASSESS AND ASSIST WITH ADLs NEEDED.
[2019-09-11 19:33] VITALS: BP 105/72
--- NOTE | 2019-09-12 02:36 | NUR ---
ASSESSMENT DOCUMENTED.PT BEEN RESTING IN NO ACUTE DISTRESS.A/OX4.VSS.PT DENIES PAIN.ON O2 AT 1LITER PNC,SATS ADEQUATE.POSSIBLE DISCHARGE TODAY TO HOME.WILL CONT TO MONITOR.
[2019-09-12 04:45] VITALS: BP 101/69
[2019-09-12 08:32] VITALS: BP 109/74
[2019-09-12 08:50] VITALS: BP 109/74
--- NOTE | 2019-09-12 11:12 | EKG ---
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
[2019-09-12 11:31] LABS: HEMATOCRIT 33.4 % (42.0-52.0); HEMOGLOBIN 10.6 gm/dL (14.0-18.0); MCH 29.3 pg (26.0-34.0); MCHC 31.6 g/dL (28.0-37.0); MCV 92.7 fL (80.0-100.0); RBC 3.6 mil/uL (4.50-6.00); RDW 15.4 % (10.5-14.5); WBC 7.2 thou/uL (4.0-11.0)
[2019-09-12 11:46] LABS: CALCIUM 8.7 mg/dL (8.5-10.1); CREATININE 3.2 mg/dL (0.7-1.3); MAGNESIUM 2.3 mg/dL (1.8-2.4); POTASSIUM 4.1 mmol/L (3.5-5.1)
[2019-09-12 20:15] VITALS: BP 98/71
[2019-09-13 05:00] VITALS: BP 104/66
[2019-09-13 05:42] LABS: HEMATOCRIT 33.4 % (42.0-52.0); HEMOGLOBIN 10.8 gm/dL (14.0-18.0); MCH 29.7 pg (26.0-34.0); MCHC 32.2 g/dL (28.0-37.0); MCV 92.4 fL (80.0-100.0); RBC 3.62 mil/uL (4.50-6.00); RDW 15.3 % (10.5-14.5); WBC 6.1 thou/uL (4.0-11.0)
[2019-09-13 05:52] LABS: CREATININE 2.9 mg/dL (0.7-1.3); MAGNESIUM 2.3 mg/dL (1.8-2.4); POTASSIUM 4.2 mmol/L (3.5-5.1)
--- NOTE | 2019-09-13 07:22 | HC ---
[facility] [place] [address] [place] [address] CONSULTATION Name: SAJAN GARNETT Room #: 205-P ADM IN M.R.#: [id number] Admission: 09/10/19 Attend Phys: Vishal Peralta MD Discharge: Date of : 41 Report #: [id number] THIS REPORT FOR: //name// CC: Richard Peralta DATE OF SERVICE: 09/12/2019 REASON FOR CONSULTATION: Rising creatinine level on top of chronic kidney disease. HISTORY OF PRESENT ILLNESS: This is a 74-year-old male with an extensive past medical history. From a renal standpoint, the patient has longstanding chronic kidney disease. Upon presentation the other night, he had a creatinine level of 2.7, today it is up to 3.2, so we were asked today to see the patient. During this time, he has undergone some diuresis. He has been on some oxygen. He states he is starting to feel better. I have seen the patient before and in fact did an evaluation of him in the office in March 2015. He was seen in the office for the better part of a year after that before he was lost to follow up. At that point, he had a creatinine level of about 2.5. He had some proteinuria. He had hypertension. He also had an aortobiiliac stent graft placed in February 2015 for an abdominal aortic aneurysm with extension into the iliac arteries. We treated him at that time with a combination of lisinopril, carvedilol and furosemide. He continued to run a creatinine level at that time just less than 2.0. He had mild proteinuria. After about a year, he was lost to follow up. He tells me now he has been seeing another crossbar frame wirer in town. Now, his creatinine level runs about 3.0 plus or minus. He was seen during another recent hospitalization by one of my associates Dr. Bridget Hinds and that was in May 2019. Additional problems at that point were from his hypertension, his abdominal aortic aneurysm. He also had a history of prostate cancer and had prior radiation therapy in 2009. He continues to have a significant prostate on a recent CT scan. He reports no trouble voiding urine. He also had a positive MGUS in 2013, a bone marrow showed only 5% plasma cells and nothing has really ever become of that. ADDITIONAL PAST MEDICAL HISTORY: Hypertension beginning at age 61. He had myocardial infarction twice. He has a stent to an LAD in March 2014, multiple episodes of heart failure. His cardiomyopathy is severe. He has a Bi-V pacemaker and an AICD since 2012. Most recent echocardiogram shows a left ventricular ejection fraction of 10-15%. He has a prostate cancer and the MGUS as noted above. He has had a past history of gout as well as hyperlipidemia. The abdominal aortic aneurysm was treated with a stent graft in 2014. I have reviewed a CT scan done in March 2019 at this hospital. It shows that aortobiiliac stent graft and the iliac extension grafts still present. There [address] [address] CONSULTATION Name: SAJAN GARNETT Room #: 205-P ADM IN M.R.#: [id number] Admission: 09/10/19 Attend Phys: Vishal Peralta MD Discharge: Date of : 41 Report #: [id number] appears to be superior extension of the abdominal aortic aneurysm, now progressing to a suprarenal area of involvement. In fact, it is very difficult to tell where the ostia of the renal arteries are and the status of those renal arteries because of the extensive involvement of that area of the aorta. I asked the patient about this. He says he sees Dr. Lowery every 6 months or so, but he has not seen him for somewhat longer. Dr. Lowery who did the original stent graft was aware of the extension of the abdominal aortic aneurysm and there was discussion about sending him for surgery in [place] for repair of that, but nothing ever became of that and now the patient states he has basically stopped going to see Dr. Lowery. In March that abdominal aorta just below the diaphragm measured 5.3 x 5.6 cm in diameter. CURRENT MEDICATIONS: Include furosemide 40 mg daily, albuterol inhaler, Eliquis 5 mg b.i.d., atorvastatin 40 mg daily, Zetia 10 mg daily, amiodarone 200 mg daily, aspirin 81 mg daily, carvedilol 12.5 mg b.i.d., pantoprazole 40 mg daily, and several p.r.n. medications. ALLERGIES: LISTED TO INTRAVENOUS IODINE AND PENICILLIN. FAMILY HISTORY: Father at age 80. Mother at age 86 of bladder cancer. Two brothers of prostate cancer. Another brother of an unknown type of cancer. SOCIAL HISTORY: The patient is , lives in [place], [place]. He is accompanied by his at this time. He is retired. REVIEW OF SYSTEMS: Dyspnea with easy exertion; is unable to make his way up a flight of stairs, gets the nocturnal dyspnea as noted, some PND. Appetite is marginal. Denies nausea, vomiting or diarrhea. Has some urinary hesitancy; never has any lower extremity edema. No recent fevers, chills or sweats. PHYSICAL EXAMINATION: VITAL SIGNS: Blood pressure 101/69, heart rate 60, temperature 97.4, respiratory rate 18, oxygen saturation 100% recently on supplemental oxygen. HEENT: Shows pupils are equal and reactive. Sclerae nonicteric. Oral mucosa is moist. NECK: Veins are not distended. Neck is supple. CHEST: Generally clear. HEART: Has a regular rate and rhythm. ABDOMEN: Has active bowel sounds. I am unable to palpate any aneurysm. EXTREMITIES: Show no edema. He has 2+ posterior pretibial pulses bilaterally. LABORATORY DATA: Sodium 137, potassium 4.1, chloride 103, bicarbonate 25, BUN 82, creatinine 3.2, calcium 8.7, phosphorus 2.3. White count 7.2, hemoglobin 10.6, hematocrit 33.4, platelets 256,000. Urinalysis from the day of admission, specific gravity 1.015, pH 5.5, negative dipstick, negative microscopic exam. [address] [address] CONSULTATION Name: SAJAN GARNETT Room #: [address] [place] [address] IN M.R.#: [id number] Admission: 09/10/19 Attend Phys: Vishal Peralta MD Discharge: Date of : 41 Report #: [id number] ASSESSMENT: 1. Chronic kidney disease stage IV. His variability in creatinine is largely related to cardiorenal syndrome. He has very significantly compromised cardiomyopathy with a low ejection fraction. Changes in medication and volume status result in changes in his creatinine level. This is to be expected. I do not think he is suffering any severe acute kidney injury. As he stabilizes and reaches equilibrium, I expect his creatinine will stay in a similar level. 2. Ischemic cardiomyopathy, severe with only 10-15% ejection fraction. Obviously, this is a tremendously limiting problem. He is compromised by this and it is probably largely contributing to his paroxysmal nocturnal dyspnea. I wonder if this gentleman would benefit from some nocturnal oxygen at home. Certainly, he might be able to get a nocturnal desaturation study to better document potential benefit of supplemental oxygen. 3. Abdominal aortic aneurysm, prior aortobiiliac stent graft repair in 2014. On the most recent CT scan that I reviewed from March 2019, he has very substantial suprarenal enlargement of the abdominal aorta at this point. Renal arteries appear to be involved and are highly at risk for compromise. That aneurysm was getting bigger based upon the radiology report that was 6 months ago. He is not symptomatic now, but I am very concerned about this. He has seen Dr. Lowery and from what the patient says Dr. Lowery is aware of this change, but due to its location and other compromising factors, there is no plan to intervene on it at this time. 4. Prior prostate cancer, post-radiation therapy. 5. History of monoclonal gammopathy, indeterminate significance. 6. Chronic anemia. PLAN: 1. I do not think we need to make any further changes at this point. His creatinine level will stabilize going forward. If he is symptomatically better, he can certainly be discharged to home. 2. He has now developed new nephrologic relationship with Dr. Joya of [facility] and can follow at that location. 3. I had a very long conversation with the patient and his reviewing all the aforementioned items, my concerns, and recommendations. <ELECTRONICALLY SIGNED> By: Jonathon Guzmán MD 09/13/19 0722 1844 0208 Jonathon Guzmán MD /nt
[2019-09-13 08:00] VITALS: BP 93/54
--- NOTE | 2019-09-13 09:45 | NUR ---
PATIENT CARE ASSUMED, ASSESSMENT CHARTED, VSS, ALERTAND ORIENTED, NO NEEDS VOICED, WILL CONTINUE TO MONITOR
[2019-09-13 11:48] VITALS: BP 104/64
--- NOTE | 2019-09-13 12:33 | NUR ---
ORDERS RECEIVED FOR P.T. EVAL AND TREAT. CHART REVIEWED AND O.T. CLEARED Pt TO GO HOME DEEMED SAFE WITH MOBILITY. SPOKE TO Pt'S NURSE, JAE, WHO STATES Pt HAS BEEN UP AD MAE. SPOKE TO Pt WHO STATES THAT HE FEELS SAFE TO GO HOME IN TERMS OF HIS MOBILITY. Pt PEFORMED ALL BED MOBILITY, TRANSFERS AND GAIT WITHOUT AD IND'LY. NO P.T. CHARGE AT THIS DATE D/T Pt ONLY SEEN FOR FIVE MINUTES.
--- NOTE | 2019-09-13 13:25 | NUR ---
met with patient. Discussed dc planning. patient lives in home with . he does not have home oxygen but believes he needs home oxygen. he uses a cane. he reports independent with adls. He reports independent with dressing, bathing and cooking. he cont to drive. he reports he does not want or need HH at dc. [facility] following for dc planning.
[2019-09-13 16:00] VITALS: BP 98/66
--- NOTE | 2019-09-13 17:25 | NUR ---
PATIENT CARE ASSUMED, ASSESSMENT CHARTED, VSS, ALERT AND ORIENTED, WOUND VAC REMOVED, DSG APPLIED, DIALYSIS COMPLETED, FFP INFUSED, TOLERATED WELL. WILL CONTINUE TO MONITOR
[2019-09-13 20:45] VITALS: BP 108/66
--- NOTE | 2019-09-14 03:18 | NUR ---
ASSUMED PT CARE AT 1900. PT VSS WITH NO C/O PAIN OR SOB. PT STATES "READY TO GO HOME". PT HAS DISCHARGE ORDERS TO HOME. WILL CONTINUE TO MONITOR PT PER POC.
[2019-09-14 04:45] VITALS: BP 97/66
[2019-09-14 04:52] LABS: CALCIUM 8.8 mg/dL (8.5-10.1); CREATININE 3.3 mg/dL (0.7-1.3); PHOSPHORUS 4.5 mg/dL (2.5-4.9); POTASSIUM 4.5 mmol/L (3.5-5.1)
[2019-09-14 08:00] VITALS: BP 101/69
[2019-09-14 08:09] VITALS: BP 98/68
[2019-09-14 11:59] VITALS: BP 104/70
--- NOTE | 2019-09-14 13:08 | HC ---
[facility] [place] [address] [place] [address] CONSULTATION Name: SAJAN GARNETT Room #: 205- ADM IN M.R.#: [id number] Admission: 09/10/19 Attend Phys: Vishal Peralta MD Discharge: Date of : 43 Report #: [id number] THIS REPORT FOR: //name// CC: Richard Peralta DATE OF SERVICE: 09/13/2019 We were asked by Dr. Peralta to see the patient. HISTORY OF PRESENT ILLNESS: The patient is a 74-year-old with an abdominal aortic aneurysm. The patient was admitted on 09/10/2019 with increasing shortness of breath. The patient has a history of cardiomyopathy and the most recent echo I have access to, says his ejection fraction is in the 10-15% range. The patient also has stage 4 chronic renal dysfunction and has a very limited tolerance for over or under hydration from heart failure on one hand and renal dysfunction on the other. We were asked to see the patient for an abdominal aortic aneurysm. The patient has a history of stent graft implant for an infrarenal abdominal aortic aneurysm. This was done approximately 5 years ago. The type of stent graft that was placed into the suprarenal extension and the patient appears to have an enlarging aneurysm at and involving the renal artery origin. The aneurysm does appear to begin just below the superior mesenteric artery. It is difficult to characterize this as no contrast has been used because of the renal dysfunction. It should be said that the patient denies any symptoms of abdominal aneurysm change such as abdominal or back pain. Symptoms on admission were largely orthopnea and shortness of breath. PAST HISTORY: The patient states that he was hypertensive at one time and this appears to be the origin of his renal dysfunction, although he is not hypotensive. Currently, the patient denies diabetes mellitus. The patient sees Dr. Mckinnon, his block layer and Dr. Barba for chronic renal dysfunction. He also has seen Dr. Horne for chronic obstructive pulmonary disease. Past history is as mentioned, heart failure with left ventricular ejection fraction of 10-20% range, hypercholesterolemia, history of cardiac stents, ischemic cardiomyopathy, gout, prostate cancer, AICD implant, abdominal aneurysm, status post stent graft, history of transient ischemic attacks and CVAs and lower extremity stents. ALLERGIES: The patient states that PENICILLIN CAUSES HIVES AND SWELLING AND CODEINE. SOCIAL HISTORY: Positive for tobacco use and past alcohol use, no other drug [address] [address] CONSULTATION Name: SAJAN GARNETT Room #: 205-P [facility] IN .R.#: [id number] Admission: 09/10/19 Attend Phys: Vishal Peralta MD Discharge: Date of : 43 Report #: [id number]. MEDICATIONS: Apixaban, Zetia, Lasix, amiodarone, aspirin, carvedilol, and nitroglycerin. REVIEW OF SYSTEMS: CONSTITUTIONAL: Negative for fever or chills. EYES: Negative for eye pain or vision change. HEENT: Negative for headache, rhinorrhea, sore throat. RESPIRATORY: As mentioned, increasing shortness of breath with orthopnea. CARDIAC: No chest pain or palpitations. GASTROINTESTINAL: No nausea, vomiting, diarrhea, or blood. GENITOURINARY: No burning, frequency, urgency or blood. MUSCULOSKELETAL: No bone or joint pain. SKIN: No rash or infection. NEUROLOGIC: No motor or sensory dysfunction. ENDOCRINE: No recent history of goiter or tremor. PHYSICAL EXAMINATION: GENERAL: The patient is lying in bed, appears to be comfortable. VITAL SIGNS: Temperature 36.6, heart rate 59, respiratory rate 18, blood pressure 104/64, O2 sat 100% on 1 liter. HEENT: Normocephalic. No icterus. Pupils are round, equal. NECK: No mass, no bruit. CHEST: Clear to auscultation anteriorly. HEART: Rhythm regular. I hear no murmur. ABDOMEN: Soft, no tenderness. EXTREMITIES: No clubbing, cyanosis, or edema. SKIN: No rash or infection. VASCULAR: 2+ posterior tibial pulses bilaterally. NEUROLOGIC: No motor or sensory dysfunction. ASSESSMENT: The patient has an enlarging suprarenal aneurysm, just renal or suprarenal. It is hard to tell exactly without contrast. This may be de shanae aneurysm or it may be some sort of reaction to the suprarenal extension of the previous graft. In any event, I have reviewed Dr. Hinds's note where he states that he is concerned about the enlargement of this finding, "this is going to be a major issue". In fact with an ejection fraction in the 10-20% range and end-stage renal disease, everything in this patient is of major issue. There is no easy fix for this problem. It would either require potential stent graft with snorkel placement in the renal arteries or open thoracoabdominal aneurysm repair. One is likely to cause renal failure and the other may simply be too much for the [facility] [address] [facility] [address] CONSULTATION Name: SAJAN GARNETT Room #: 205-P ADM IN M.R.#: [id number] Admission: 09/10/19 Attend Phys: Vishal Peralta MD Discharge: Date of : 43 Report #: [id number] patient to tolerate. In order to get an accurate assessment, of course, we would need to get a contrast study, but I will confer with the others before embarking with this examination. In summation, everything in this patient will carry high risk with it. Thank you for the consult. <ELECTRONICALLY SIGNED> By: Baron Nova MD 09/14/19 1308 1325 0011 Baron Nova MD /nt
[2019-09-14 16:00] VITALS: BP 91/65
--- NOTE | 2019-09-14 16:16 | NUR ---
ASSUMED CARE AT SHIFT CHANGE, ALERT AND ORIENTED X4, AND VSS. REMAINS AFEBRILE, AND SOB WITH ACTIVITIES. NO CP NOTED AND WILL CONTINUE WITH POC.
--- NOTE | 2019-09-15 05:05 | NUR ---
ASSUMED PT CARE AT 1900. VSS. PT A&0X4. UP AD MAE, SLEEP STUDY DONE THIS SHIFT. PT IS STABLE, SLEPT WELL ALL NIGHT. NO COMPLAINTS OF PAIN OR DISCOMFORT, PT WANTS TO GO HOME TODAY, WILL CONTINUE TO MONITOR PER POC.
[2019-09-15 05:17] VITALS: BP 107/64
[2019-09-15 05:23] LABS: HEMATOCRIT 32.7 % (42.0-52.0); HEMOGLOBIN 10.4 gm/dL (14.0-18.0); MCH 29.3 pg (26.0-34.0); MCHC 31.9 g/dL (28.0-37.0); RBC 3.56 mil/uL (4.50-6.00); RDW 15.2 % (10.5-14.5); WBC 6.3 thou/uL (4.0-11.0)
[2019-09-15 05:40] LABS: ALBUMIN 2.9 g/dL (3.4-5.0); CALCIUM 8.5 mg/dL (8.5-10.1); CREATININE 3.1 mg/dL (0.7-1.3); MAGNESIUM 2.3 mg/dL (1.8-2.4); PHOSPHORUS 3.2 mg/dL (2.5-4.9); POTASSIUM 4.2 mmol/L (3.5-5.1)
[2019-09-15 07:24] VITALS: BP 101/65
[2019-09-15 11:08] VITALS: BP 100/73
[2019-09-15 15:53] VITALS: BP 96/61
--- NOTE | 2019-09-15 18:36 | NUR ---
ASSUMED CARE AT SHIFT CHANGE, ALERT AND ORIENTED X4. VSS AND AFEBRILE. PATIENT IS ANXIOUS TO BE DISCHARGED, AND PATIENT VOICED THAT HE WILL SEEK A SECOND OPNION ELSE WHERE. WILL CONTINUE WITH POC.
[2019-09-15 20:15] VITALS: BP 108/75; BP 188/75
[2019-09-15 20:16] VITALS: BP 188/75
--- NOTE | 2019-09-16 04:29 | NUR ---
ASSESSMENT DOCUMENTED.PT BEEN RESTING IN NO ACUTE DISTRESS.VSS.DENIES NAY CONCERNS.PT WANTS TO BE DISCHARGED TO HOME TODAY.WILL CONT TO MONITOR PER POC.
[2019-09-16 04:50] VITALS: BP 109/75
[2019-09-16 05:44] LABS: HEMATOCRIT 32.5 % (42.0-52.0); HEMOGLOBIN 10.4 gm/dL (14.0-18.0); MCH 29.6 pg (26.0-34.0); MCHC 32.1 g/dL (28.0-37.0); MCV 92.2 fL (80.0-100.0); RBC 3.53 mil/uL (4.50-6.00); WBC 5.8 thou/uL (4.0-11.0)
[2019-09-16 06:01] LABS: ALBUMIN 2.8 g/dL (3.4-5.0); CALCIUM 8.4 mg/dL (8.5-10.1); CREATININE 2.9 mg/dL (0.7-1.3); PHOSPHORUS 3.2 mg/dL (2.5-4.9); POTASSIUM 3.9 mmol/L (3.5-5.1)
[2019-09-16 07:45] VITALS: BP 119/67
[2019-09-16 08:24] VITALS: BP 107/76
[2019-09-16 09:52] VITALS: BP 107/76
--- NOTE | 2019-09-16 10:26 | NUR ---
ASSESSMENT CHARTED. PT ALERT AND ORIENTED. VSS. DENIED HAVING PAIN OR DISCOMFORT. SEEN BY DR. LAWRENCE. ORDERS GIVEN TO DISCHARGE PT TO HOME. DISCHARGE INSTRUCTIONS GIVEN TO PT. PT VERBERLISED UNDERSTANDING. PT LEFT THE FACILITY ACCOMPANIED BY THE .
== END 2019-09-16 10:24 | disposition home or self-care (01) | DRG 291 ==
LOC: ER 21:39 → 2N 09-10 00:11 → EROBS 09-10 00:11 → 2N 09-10 01:50 → ENTRNSPT 09-16 10:14 → 2N 09-16 10:24
PROVIDERS: Emergency Medicine; Hospitalist; Nurse Practitioner Family; ADMIT Internal Medicine
DX: I13.0 Hypertensive heart and chronic kidney disease with heart failure and stage 1 through stage 4 chronic kidney disease, or unspecified chronic kidney disease (principal); I50.23 Acute on chronic systolic (congestive) heart failure; N18.4 Chronic kidney disease, stage 4 (severe); N17.9 Acute kidney failure, unspecified; I48.0 Paroxysmal atrial fibrillation; I25.10 Atherosclerotic heart disease of native coronary artery without angina pectoris; I25.5 Ischemic cardiomyopathy; M10.9 Gout, unspecified; D64.9 Anemia, unspecified; J44.9 Chronic obstructive pulmonary disease, unspecified; G47.00 Insomnia, unspecified; I71.4 Abdominal aortic aneurysm, without rupture; I73.9 Peripheral vascular disease, unspecified; Z82.49 Family history of ischemic heart disease and other diseases of the circulatory system; Z87.891 Personal history of nicotine dependence; Z95.5 Presence of coronary angioplasty implant and graft; Z85.46 Personal history of malignant neoplasm of prostate; Z95.0 Presence of cardiac pacemaker; Z86.73 Personal history of transient ischemic attack (TIA), and cerebral infarction without residual deficits; Z95.820 Peripheral vascular angioplasty status with implants and grafts; Z88.0 Allergy status to penicillin; Z91.041 Radiographic dye allergy status; I25.2 Old myocardial infarction; Z80.8 Family history of malignant neoplasm of other organs or systems; Z80.42 Family history of malignant neoplasm of prostate; Z79.82 Long term (current) use of aspirin; Z79.899 Other long term (current) drug therapy; Z23 Encounter for immunization
CPT/HCPCS: 10081

== ENCOUNTER 2019-09-25 14:47 | Inpatient (IN) | payer OTHER ==
[~2019-09-25] VITALS: Ht 175.3 cm; Wt 69.2 kg
--- NOTE | ~2019-09-25 | H ---
[facility] [place] [address] HISTORY AND PHYSICAL Name: SAJAN GARNETT Room #: 207-P ADM IN M.R.#: [id number] Admission: 09/25/19 Attend Phys: Indira Gorman MD Discharge: Date of : 43 Report #: [id number] THIS REPORT FOR: //name// CC: Richard Gorman DATE OF SERVICE: 09/25/2019 PRIMARY CARE PHYSICIAN: Dr. Indira Gorman. CHIEF COMPLAINT: Shortness of breath. HISTORY OF PRESENT ILLNESS: The patient is a very pleasant 74-year-old gentleman with severe cardiomyopathy with ejection fraction less than 15% and has recently been discharged from [facility] after being treated for acute CHF exacerbation and the patient actually was discharged on 09/16/2019, exactly a week ago from today and he informs me that he was feeling excellent and he left to go home. His shortness of breath was significantly well controlled and he informs me that he has been taking all his medications pretty regularly but his shortness of breath and cough got progressively worse. He informs me that he felt very weak and tired and could not even walk five steps and even just at rest, his shortness of breath got worse and for last 2-3 nights, he has had severe orthopnea and so he has been sitting upright and basically has not gotten any rest. The patient informs me that he has felt significantly better after he was brought into the Emergency Room for evaluation of his shortness of breath. He has not had any chest pain or chest discomfort at all. However, he has had a cough noted significantly and shortness of breath. The patient received IV Lasix as soon as he arrived in the Emergency Room and has had significant diuresis and response to 80 mg of IV Lasix dose. The patient was 96% on room air. However, after being placed on 2 liters of oxygen by nasal cannula, he felt significantly better. The patient denies any fevers, shaking chills or night sweats at home and has been feeling mostly progressively weak and progressively worsening shortness of breath. The patient also has noticed progressively worsening leg swelling in the last couple of days; however, he denies any nausea, vomiting, diarrhea, fever, shaking chills, night sweats. Denies any hemoptysis, also denies any sinus drainage, cough or sputum production, just minimal nonproductive cough has been progressively getting worse. The patient denies any hematochezia, melena, dysuria, hematuria, frequency or urgency of urination. The patient informs me that he has had cough, mostly dry, but last 2-3 days, it has been productive and he has had one episode of hemoptysis 2 days ago PAST MEDICAL HISTORY: Significant for: 1. Cardiomyopathy with ejection fraction 15%. 2. Coronary artery disease with 2 stents in the past. [address] [address] HISTORY AND PHYSICAL Name: SAJAN GARNETT Room #: 207-P ADM IN M.R.#: [id number] Admission: 09/25/19 Attend Phys: Indira Gorman MD Discharge: Date of : 43 Report #: [id number] 3. Chronic kidney disease stage 4. 4. Anemia of chronic disease. 5. History of prostate cancer, treated with radiation therapy and surgery. 6. Status post defibrillator placement. 7. Thyroid goiter removed in 2000. 8. Abdominal aortic aneurysm extending upward and involving both renal arteries. 9. History of TIA and CVA. 10. Hyperlipidemia. 11. Gastroesophageal reflux disease. 12. COPD. ALLERGIES: The patient is allergic to IODINE CONTRAST DYE and PENICILLIN, they both cause hives. CURRENT MEDICATIONS: 1. Aspirin 81 mg daily. 2. Carvedilol 12.5 p.o. b.i.d. 3. Apixaban 2.5 mg p.o. b.i.d. 4. Zetia 10 mg daily. 5. Furosemide 30 mg daily. 6. Amiodarone 200 mg daily. 7. Nitroglycerin 0.4 sublingual p.r.n. for chest pain. PERSONAL AND SOCIAL HISTORY: The patient informs me that he quit smoking 8-9 years ago and prior to that, he was smoking 2 packs per day and started in his teenage years. Denies any alcohol intake and denies any recreational drugs. FAMILY HISTORY: Father of old age. He was 85 years old and mom of bladder cancer at a relatively younger age. DIETARY HISTORY: The patient drinks about 2-3, 12 ounces bottles of soda every day and denies any other salt intake. PAST SURGICAL HISTORY: The patient has had: 1. Goiter removal. 2. Pacemaker defibrillator placed. 3. Cardiac stents. REVIEW OF SYSTEMS: Ten point review of system was done. Please see HPI above and otherwise his review of systems same as HPI above. PHYSICAL EXAMINATION: VITAL SIGNS: Temperature 36.3, heart rate 64, respirations 22, blood pressure 107/69, and pulse oximeter 99% on 2 liters of oxygen by nasal cannula. The patient's admission weight is 70.31 kilos. [facility] [address] [place] [address] HISTORY AND PHYSICAL Name: SAJAN GARNETT Room #: 207-P [facility] IN M.R.#: [id number] Admission: 09/25/19 Attend Phys: Indira Gorman MD Discharge: Date of : 43 Report #: [id number] GENERAL: Alert and oriented to time, place and person, very pleasant, chronically ill appearing, frail gentleman who is very short of breath, sitting upright and appears uncomfortable. HEENT: Normocephalic, atraumatic. Pupils equally round, reactive to light. Extraocular muscle movement intact. Conjunctivae clear. Sclerae nonicteric. Oropharynx clear. Mucous membranes are moist. NECK: Supple. The patient does have JVD and no lymphadenopathy noted. The patient has well-healed scar of thyroid surgery noted. HEART: S1, S2, regular and murmur noted. LUNGS: Both lungs with decreased breath sounds, but no crackles noted. No wheezes noted. ABDOMEN: Soft, nontender, nondistended, normal active bowel sounds. EXTREMITIES: 1+ pitting edema of both lower extremities at ankle and lower leg noted. NEUROLOGIC: Completely nonfocal. LABORATORY DATA AND X-RAYS: The patient had EKG performed at 1513 and it was atrial ventricular paced rhythm with a rate of 63. No ST-T changes noted. BNP was 25,713. BUN 46, creatinine elevated to 2.4, glucose 109, RBC 3.35, hemoglobin 9.9, hematocrit 30.8, RDW 15.2 with neutrophils 73.7%. Chemistries indicate sodium 139, potassium 3.9, chloride 107, bicarbonate 22, anion gap 10, BUN 46, creatinine 2.4, GFR was down to 32, glucose 109, calcium 9.0. Troponin I less than 0.06. BNP 25,713. Liver enzymes are pending at the time of dictation. No leukocytosis noted. WBCs are 6000. Chest x-ray indicates bilateral pleural effusion with bibasilar atelectasis, mild pulmonary venous congestion and fluid overload noted on chest x-ray. ASSESSMENT AND PLAN: 1. Acute congestive heart failure exacerbation. 2. Chronic kidney disease stage 3. 3. Mild chronic obstructive pulmonary disease exacerbation. 4. Acute renal insufficiency. 5. Aortic aneurysm with involvement of bilateral renal arteries. 6. Debility. 7. Dietary noncompliance. 8. Code status. The patient wishes to have CPR and shock done one time, but he absolutely does not want to be intubated and his presented at the bedside and agrees with the patient's decision and Mrs. Garnett is the DPOA and the emergency contact as well and her number is [phone]. 9. Pulmonary: History of mild chronic obstructive pulmonary disease exacerbation with mild bilateral pleural effusion and pulmonary venous congestion secondary to congestive heart failure exacerbation; however, for chronic obstructive pulmonary disease exacerbation, we will use steroids low dose and a DuoNeb breathing treatment and the patient is extremely stressed out about missing his pulmonary appointment on Friday afternoon and will ask [address] [address] HISTORY AND PHYSICAL Name: SAJAN GARNETT Room #: 207-P [facility] IN M.R.#: [id number] Admission: 09/25/19 Attend Phys: Indira Gorman MD Discharge: Date of : 43 Report #: [id number] Ozzie if he can see the patient tomorrow here inpatient and maximize his medications as needed. 10. Hypertension. The patient is normotensive at the present time and will continue his home medication, will avoid hypotension to avoid any worsening of the renal function. 11. Acute renal insufficiency with chronic kidney disease stage 4. We will go ahead and consult Nephrology. Discussed with the patient that he would not be a good candidate for dialysis as his ejection fraction is less than 15% and he has bilateral renal artery involvement with aortic aneurysm progressively worsening. However, the patient would like to discuss his options with a mold breaker and with acute renal insufficiency and chronic kidney disease stage 4, we will go ahead and consult Nephrology and ask for their feedback. 12. Hypothyroidism. We will continue levothyroxine. 13. History of ventricular tachycardia. The patient has been in sinus rhythm and has been on amiodarone. We will continue the same medications that he takes at home regularly. We will adjust the dose of amiodarone for the renal function. 14. Coronary artery disease. The patient currently remains asymptomatic for the chest pain and troponin has been negative. 15. Hyperlipidemia. Continue his home medications. 16. Aortic aneurysm. The patient is a candidate for a very very high risk for any procedure and a CT scan with contrast will definitely put the patient in end-stage renal disease with the renal function completely gone. The patient understands the risk and at this time, the patient and his do not want to do any intervention for the aortic aneurysm. The patient's code status as chest compressions without any induration is written and for DVT prophylaxis, we will continue renal dose of Pepcid and for deep venous thrombosis prophylaxis, the patient is on renal dose of Eliquis and we will continue the same. By: [id number] Indira Gorman MD /nt
[2019-09-25 14:48] VITALS: BP 107/69
[2019-09-25 16:06] LABS: ABSOLUTE NEUTROPHILS 4.4 thou/uL (1.4-8.2); BASOPHILS 1.3 % (0.0-2.0); EOSINOPHILS 1.8 % (0.0-3.0); HEMATOCRIT 30.8 % (42.0-52.0); HEMOGLOBIN 9.9 gm/dL (14.0-18.0); LYMPHOCYTES 15.9 % (24.0-44.0); MCH 29.5 pg (26.0-34.0); MCHC 32.1 g/dL (28.0-37.0); MCV 91.9 fL (80.0-100.0); MONOCYTES 7.3 % (1.0-8.0); PLATELET COUNT 202 thou/uL (150-400); POLYS 73.7 % (36.0-66.0); RBC 3.35 mil/uL (4.50-6.00); RDW 15.2 % (10.5-14.5)
[2019-09-25 16:14] LABS: ANION GAP 10 mmol/L (7-16); BUN 46 mg/dL (7-18); CHLORIDE 107 mmol/L (98-107); CO2 22 mmol/L (21-32); CREATININE 2.4 mg/dL (0.7-1.3); GLUCOSE 109 mg/dL (74-106); POTASSIUM 3.9 mmol/L (3.5-5.1); SODIUM 139 mmol/L (136-145)
[2019-09-25 16:22] LABS: TROPONIN-I <0.06 ng/mL (<0.06)
[2019-09-25 17:47] VITALS: BP 111/66
[2019-09-25 18:45] VITALS: BP 126/81
[2019-09-25 20:03] VITALS: BP 115/77
[2019-09-26 00:24] VITALS: BP 124/74
[2019-09-26 04:50] LABS: CALCIUM 8.9 mg/dL (8.5-10.1); CREATININE 2.5 mg/dL (0.7-1.3); POTASSIUM 3.8 mmol/L (3.5-5.1)
[2019-09-26 05:52] VITALS: BP 115/71
--- NOTE | 2019-09-26 06:47 | NUR ---
patients cares were assumed at shift change. patient was assessed and meds were passed. patient had no request this shift. patient rested well. hourly rounding was done. the bed was in a low and locked position. the bed alarm was on.
[2019-09-26 07:25] VITALS: BP 120/74
[2019-09-26 12:12] VITALS: BP 109/70
--- NOTE | 2019-09-26 13:17 | EKG ---
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 : 1945 Requested By: Jah Connell Order Number: [id number] MD: Darshan Carmona Measurements Intervals Fleming Rate: 63 P: 107 DE: 164 QRS: 244 QRSD: 124 T: -59 QT: 540 QTc: 553 Interpretive Statements Atrial-sensed ventricular-paced rhythm No further analysis attempted due to paced rhythm Compared to ECG 09/09/2019 21:58:47 No significant change was found Electronically Signed On 09-26-2019 13:17:34 [facility] [employer] by Darshan Carmona [email or web address] <ELECTRONICALLY SIGNED> By: Darshan Carmona MD, [facility] 09/26/19 1317 1506 1506 Darshan Carmona MD, [facility] /EPI
[2019-09-26 13:27] LABS: BE(vivo) -1.7 mmol/L (-2 to +3); HCO3 21.8 mmol/L (22.0-26.0); PCO2 32.8 mmHg (35.0-45.0); PO2 63.3 mmHg (80.0-100.0); pH 7.441 (7.360-7.450); sO2 93.2 % (92.0-98.0)
[2019-09-26 15:57] VITALS: BP 110/65
--- NOTE | 2019-09-26 17:45 | NUR ---
ASSUMED CARE 0700. ALERT X4, DENIES PAIN, DENIES SOB AT THIS TIME. O2 SATS STABLE REMOVED OXYGEN. PT STATES AT HOME HE SLEEPS SITTING UP AND HAS SOB. CONCERNED THAT HE WILL DC TOMORROW WITHOUT O2. PT DENIES BEING ANXIOUS. CALLS FOR ASSISTANCE.
[2019-09-26 19:48] VITALS: BP 109/73
[2019-09-27 04:24] VITALS: BP 119/67
[2019-09-27 05:04] LABS: CALCIUM 8.8 mg/dL (8.5-10.1); CREATININE 2.6 mg/dL (0.7-1.3); POTASSIUM 3.9 mmol/L (3.5-5.1)
--- NOTE | 2019-09-27 08:22 | NUR ---
pt placed on 2l nc at beginning of shift Po2 of 63 with ABG drawn earlier in the day. vss, no c/o pain, report given to next shift to con't with ppoc.
[2019-09-27] MEDS ORDERED: SPIRONOLACTONE25 M1 PO (09:14)
[2019-09-27] MEDS ORDERED: RAYOS5 MG PO (09:19)
[2019-09-27 10:53] VITALS: BP 119/67
--- NOTE | 2019-09-27 10:57 | NUR ---
FAXED REFERRAL TO [facility] SPOKE WITH ABDIEL IN INTAKE SHE RECEIVED REFERRAL AND CAN ACCEPT PT.
--- NOTE | 2019-09-27 12:27 | NUR ---
SPOKE WITH SHOWROOM MANAGER (SHAQ) PT IS REFUSING HH, NOTIFIED [facility] THAT PT REFUSING HH SPOKE WITH JOHN IN INTAKE.
--- NOTE | 2019-09-27 14:02 | NUR ---
Patient admits with CHF. Patient dc from [facility] Sep 13 2019 to home. Patient to dc home today and Home Health ordered. Reviewed with patient home health, its covered with insurance. Patient refuses home health care. Notified phys. patient may need home oxygen. o2 sat/excercise completed sp with RT who reports patient does not qualify for home oxygen. Patient argumentative with casemgt that he qualifies for home oxygen. RT checked the ABG done yesterday and reports he does not qualify. Updated patient who was not happy.
--- NOTE | 2019-09-27 14:22 | NUR ---
ASSESSMENT CHARTED. PT ALERT AND ORIENTED. VSS. ORDERS GIVEN TO DISCHARGE PT TO HOME. DISCHARGE INSTRUCTIONS GIVEN TO PT. PT VERBELISED UNDERSTANDING.
== END 2019-09-27 14:25 | disposition home or self-care (01) | DRG 291 ==
LOC: ER 14:47 → 2N 17:43 → EROBS 17:43 → 2N 18:10 → ENTRNSPT 09-27 14:06 → EDTRNSPTSTS 09-27 14:13 → 2N 09-27 14:25
PROVIDERS: Emergency Medicine; Pediatrics; ADMIT Internal Medicine
DX: I13.0 Hypertensive heart and chronic kidney disease with heart failure and stage 1 through stage 4 chronic kidney disease, or unspecified chronic kidney disease (principal); I50.23 Acute on chronic systolic (congestive) heart failure; J96.01 Acute respiratory failure with hypoxia; N18.4 Chronic kidney disease, stage 4 (severe); J44.1 Chronic obstructive pulmonary disease with (acute) exacerbation; F17.210 Nicotine dependence, cigarettes, uncomplicated; D64.9 Anemia, unspecified; G47.30 Sleep apnea, unspecified; K21.9 Gastro-esophageal reflux disease without esophagitis; E78.00 Pure hypercholesterolemia, unspecified; M10.9 Gout, unspecified; I25.10 Atherosclerotic heart disease of native coronary artery without angina pectoris; I25.5 Ischemic cardiomyopathy; E78.5 Hyperlipidemia, unspecified; I48.0 Paroxysmal atrial fibrillation; Z79.01 Long term (current) use of anticoagulants; Z88.0 Allergy status to penicillin; Z91.041 Radiographic dye allergy status; Z82.49 Family history of ischemic heart disease and other diseases of the circulatory system; Z95.810 Presence of automatic (implantable) cardiac defibrillator; Z86.73 Personal history of transient ischemic attack (TIA), and cerebral infarction without residual deficits; Z79.82 Long term (current) use of aspirin; Z80.52 Family history of malignant neoplasm of bladder
CPT/HCPCS: 10194

== ENCOUNTER 2020-01-01 10:13 | Emergency (ER) | payer OTHER ==
[~2020-01-01] VITALS: Ht 175.3 cm; Wt 70.3 kg
[~2020-01-01 10:13] MED LIST changes: +RAYOS5 MG PO; +SPIRONOLACTONE25 M1 PO
[2020-01-01 11:33] VITALS: BP 110/79
== END 2020-01-01 11:34 | disposition home or self-care (01) ==
LOC: ER 10:13
DX: R43.9 Unspecified disturbances of smell and taste (principal); I25.10 Atherosclerotic heart disease of native coronary artery without angina pectoris; E78.00 Pure hypercholesterolemia, unspecified; M10.9 Gout, unspecified; N18.4 Chronic kidney disease, stage 4 (severe); F17.210 Nicotine dependence, cigarettes, uncomplicated; Z88.0 Allergy status to penicillin; Z88.8 Allergy status to other drugs, medicaments and biological substances; Z95.0 Presence of cardiac pacemaker; Z86.73 Personal history of transient ischemic attack (TIA), and cerebral infarction without residual deficits

== ENCOUNTER 2020-01-03 15:50 | Emergency (ER) | payer OTHER ==
[~2020-01-03] VITALS: Ht 175.3 cm; Wt 71.0 kg
[2020-01-03 15:52] VITALS: BP 126/87
[2020-01-03 16:18] LABS: HEMATOCRIT 31.8 % (42.0-52.0); HEMOGLOBIN 9.6 gm/dL (14.0-18.0); MCH 24.7 pg (26.0-34.0); MCHC 30.1 g/dL (28.0-37.0); PLATELET COUNT 241 thou/uL (150-400); RBC 3.87 mil/uL (4.50-6.00); RDW 17.6 % (10.5-14.5); WBC 5.7 thou/uL (4.0-11.0)
[2020-01-03 16:22] LABS: CALCIUM 9.3 mg/dL (8.5-10.1); CREATININE 2.9 mg/dL (0.7-1.3); POTASSIUM 4.3 mmol/L (3.5-5.1)
[2020-01-03 16:29] LABS: ALBUMIN 3.4 g/dL (3.4-5.0); TOTAL BILIRUBIN 0.9 mg/dL (<0.1-1.0); TOTAL PROTEIN 8.5 g/dL (6.4-8.2)
[2020-01-03 16:37] LABS: ABSOLUTE NEUTROPHILS 3.9 thou/uL (1.4-8.2); ANISOCYTOSIS 1+; HYPOCHROMASIA 1+; POLYCHROMASIA OCCASIONAL
[2020-01-03] MEDS ORDERED: ULTRAM 50MG TAB50 MG PO (18:37)
[2020-01-03] MEDS ORDERED: ZPAK PO (18:37)
[2020-01-03 19:14] VITALS: BP 116/80
--- NOTE | 2020-01-14 15:31 | EKG ---
[facility] [place] [address] [place] [address] ELECTROCARDIOGRAM REPORT Name: SAJAN GARNETT Room #: DEP [facility]#: [id number] Admission: 01/03/20 Attend Phys: Discharge: 01/03/20 Date of : 41 Report #: [id number] THIS REPORT FOR: cc: Richard Martinez James A. DO Couchonnal, Luis F. 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: : 1945 Requested By: Gloria Renee Order Number: [id number] MD: Octavio Cameron Measurements Intervals [place] Rate: 77 P: -22 MN: 153 QRS: 171 QRSD: 139 T: -28 QT: 442 QTc: 501 Interpretive Statements Atrial-sensed ventricular-paced rhythm No further analysis attempted due to paced rhythm Compared to ECG 09/25/2019 15:06:24 No significant changes Electronically Signed On 01-04-2020 8:08:16 [employer] by Octavio Cameron [email or web address] <ELECTRONICALLY SIGNED> By: Octavio Cameron MD 01/04/20 0808 [id number] 1734 Octavio Cameron MD /EPI
== END 2020-01-03 19:16 | disposition home or self-care (01) ==
LOC: ER 15:50 → 2N 01-04 11:57 → ER 01-04 11:57
PROVIDERS: Emergency Medicine
DX: J06.9 Acute upper respiratory infection, unspecified (principal); R10.32 Left lower quadrant pain; R63.4 Abnormal weight loss; I50.9 Heart failure, unspecified; I25.10 Atherosclerotic heart disease of native coronary artery without angina pectoris; I71.4 Abdominal aortic aneurysm, without rupture; E78.00 Pure hypercholesterolemia, unspecified; N18.4 Chronic kidney disease, stage 4 (severe); M10.9 Gout, unspecified; F17.210 Nicotine dependence, cigarettes, uncomplicated; Z86.2 Personal history of diseases of the blood and blood-forming organs and certain disorders involving the immune mechanism; Z85.46 Personal history of malignant neoplasm of prostate; Z86.73 Personal history of transient ischemic attack (TIA), and cerebral infarction without residual deficits; Z95.5 Presence of coronary angioplasty implant and graft; Z91.041 Radiographic dye allergy status; Z88.0 Allergy status to penicillin

== ENCOUNTER 2020-01-04 07:56 | Inpatient (IN) | payer OTHER ==
[~2020-01-04] VITALS: Ht 177.8 cm; Wt 69.4 kg
--- NOTE | ~2020-01-04 | HC ---
[facility] [place] [address] [place] [address] CONSULTATION Name: SAJAN GARNETT Room #: 201-P ADM IN M.R.#: [id number] Admission: 01/04/20 Attend Phys: Nigel Mejia MD Discharge: Date of : 41 Report #: [id number] THIS REPORT FOR: cc: Richard Martinez James A. DO Al-Absi, Ahmed I. MD ~ CC: Richard Mejia DATE OF SERVICE: 01/05/2020 REASON FOR CONSULTATION: Chronic kidney disease. REASON FOR PRESENTATION: Shortness of breath. HISTORY OF PRESENT ILLNESS: This is a very well-known patient to me. He has chronic kidney disease, patient of Dr. Guzmán. His baseline creatinine is around 3.0. He has advanced cardiomyopathy with an ejection fraction of around 10%. He presented with shortness of breath. He was admitted to be further evaluated. The patient has a very complex history. He has history of abdominal aortic aneurysm. He previously declined all kind of procedures to be done as he was told that there is a very high risk from the procedure. He had been evaluated by many surgeons here and at [facility]. He was also evaluated by an expert from [place], who visited [place]. He was told that there is about 80% chance of related to that procedure. The patient declined any procedures. He was also told because of his heart condition, he is not going to be a good candidate for long-term hemodialysis. The patient was admitted for further evaluation. His creatinine seems to be around his baseline at 3.1. PAST MEDICAL HISTORY: 1. Heart failure with an ejection fraction of around 10%. 2. Hypertension. 3. Thyroid surgeries. 4. Chronic obstructive pulmonary disease. 5. Status post automatic implantable cardioverter-defibrillator. 6. Abdominal aortic aneurysm. 7. Cardiomyopathy. 8. Status post automatic implantable cardioverter-defibrillator. MEDICATIONS: 1. Furosemide. 2. Eliquis. 3. Amiodarone. 4. Aspirin. [address] [address] CONSULTATION Name: SAJAN GARNETT Room #: 201-[facility] IN M.R.#: [id number] Admission: 01/04/20 Attend Phys: Nigel Mejia MD Discharge: Date of : 41 Report #: [id number] ALLERGIES: IODINATED CONTRAST and PENICILLIN. FAMILY HISTORY: Mother of bladder cancer. SOCIAL HISTORY: . No drug or alcohol abuse. Retired. REVIEW OF SYSTEMS: GENERAL: No fever or chills. CARDIOVASCULAR: As per the history of present illness. PULMONARY: As per the history of present illness. GASTROINTESTINAL: No nausea or vomiting. GENITOURINARY: No frequency, no urgency. NEUROLOGICAL: No headache, no dizziness. PHYSICAL EXAMINATION: GENERAL: He is alert, oriented, in no apparent distress. VITAL SIGNS: Blood pressure is 112/78. HEAD AND NECK: No jugular venous distention. CHEST: No crackles. CARDIOVASCULAR: No rub. ABDOMEN: Soft. EXTREMITIES: Lower extremities, no edema. LABORATORY VALUES: White blood cell count 5.3, hemoglobin 8.7, platelet 205. Sodium 137, BUN 73, creatinine is 3.2. ASSESSMENT, IMPRESSION AND PLAN: 1. Chronic kidney disease. 2. Mild pulmonary edema. 3. Known abdominal aortic aneurysm, status post endo stent graft, expanding. 4. Terminal cardiomyopathy. 5. Discontinue IV Lasix. 6. Stable from the renal side. 7. Continue p.o. furosemide. 8. Very complex history related to his abdominal aortic aneurysm. Unfortunately, the patient has no other options and he opted to continue with the medical conservative therapy for now. By: [id number] Bridget Hinds MD /nt
[~2020-01-04 07:56] MED LIST changes: +ULTRAM 50MG TAB50 MG PO; +ZPAK PO
[2020-01-04 07:57] VITALS: BP 98/74
[2020-01-04 08:29] LABS: URINE BILIRUBIN NEGATIVE (Negative); URINE BLOOD NEGATIVE (Negative); URINE CLARITY CLEAR; URINE COLOR YELLOW; URINE GLUCOSE-RANDOM* NEGATIVE (Negative); URINE KETONES NEGATIVE (Negative); URINE LEUKOCYTES-REFLEX NEGATIVE (Negative); URINE NITRITE-REFLEX NEGATIVE (Negative); URINE PROTEIN (DIPSTICK) 2+ (Negative); URINE SPECIFIC GRAVITY 1.025 (1.005-1.035)
[2020-01-04 08:32] LABS: ANION GAP 17 mmol/L (7-16); BUN 72 mg/dL (7-18); CALCIUM 9.6 mg/dL (8.5-10.1); CHLORIDE 103 mmol/L (98-107); CO2 18 mmol/L (21-32); CREATININE 3.1 mg/dL (0.7-1.3); GLUCOSE 113 mg/dL (74-106); POTASSIUM 4.4 mmol/L (3.5-5.1); SODIUM 138 mmol/L (136-145)
[2020-01-04 08:39] LABS: ABSOLUTE NEUTROPHILS 4.3 thou/uL (1.4-8.2); BASOPHILS 1.4 % (0.0-2.0); EOSINOPHILS 0.6 % (0.0-3.0); HEMOGLOBIN 9.7 gm/dL (14.0-18.0); LYMPHOCYTES 16.7 % (24.0-44.0); MCH 24.9 pg (26.0-34.0); MCHC 30.3 g/dL (28.0-37.0); MCV 82.2 fL (80.0-100.0); MONOCYTES 7.3 % (1.0-8.0); PLATELET COUNT 240 thou/uL (150-400); RDW 17.3 % (10.5-14.5); WBC 5.8 thou/uL (4.0-11.0)
[2020-01-04 08:42] LABS: ALBUMIN 3.7 g/dL (3.4-5.0); DIRECT BILIRUBIN 0.3 mg/dL (<0.1-0.2); LIPASE 105 U/L (73-393); SGOT 25 U/L (15-37); SGPT 37 U/L (30-65); TOTAL PROTEIN 8.9 g/dL (6.4-8.2); TROPONIN-I <0.06 ng/mL (<0.06)
[2020-01-04 09:04] LABS: BACTERIA-REFLEX None Seen /HPF (None Seen); CRYSTALS None Seen /LPF (None Seen); HYALINE CASTS 0-3 Few /LPF (None Seen); SQUAMOUS 0-3 Few /LPF (0-3); URINE RBC 0-2 Rare /HPF (0-2)
[2020-01-04 09:05] LABS: URINE WBC-REFLEX None Seen /HPF (0-5)
[2020-01-04 10:35] VITALS: BP 123/84
[2020-01-04 10:56] VITALS: BP 117/94
[2020-01-04 12:26] VITALS: BP 119/88
[2020-01-04 12:30] VITALS: BP 124/89
--- NOTE | 2020-01-04 12:58 | NUR ---
ASSUMED CARE AT 0700, SHIFT ASSESSMENT DONE, MEDS GIVEN, VSS. DENIES PAIN, NAUSEA, VOMITING. ON 2L NC, NSR ON TELE. INDICATED PT CANNOT TASTE FOOD FOR HE LAST 7 DAYS, SO HE STOPPED TAKING HIS MEDS. WILL CONTINUE TO ASSESS AND ASSIST WITH ADLs NEEDED.
--- NOTE | 2020-01-04 13:05 | 2DMMODE ---
[facility] [place] [address] 2 D/M-MODE ECHOCARDIOGRAM Name: SAJAN GARNETT Room #: 201-P ADM IN M.R.#: [id number] Admission: 01/04/20 Attend Phys: Nigel Mejia MD Discharge: Date of : 41 Report #: [id number] THIS REPORT FOR: cc: Richard Martinez James A. DO Lundgren, Craig H. MD [facility] ~ APPROVED REPORT Study performed: 01/04/2020 10:51:01 EXAM: Comprehensive 2D, Doppler, and color-flow Echocardiogram Patient Location: Bedside Room #: 9 BSA: 1.88 HR: 77 bpm BP: 123/84 mmHg Other Information Study Quality: Good Indications Congestive Heart Failure Dyspnea CAD Cardiomyopathy Hypertension/HDD 2D Dimensions RVDd: 45.75 mm IVSd: 12.39 (7-11mm) LVOT Diam: 21.45 (18-24mm) LVDd: 75.51 mm PWd: 10.78 (7-11mm) Ascending Ao: 31.12 (22-36mm) LVDs: 71.42 (25-40mm) Aortic Root: 32.40 mm IVC: 26.00 mm Volumes Left Atrial Volume (Systole) Single Plane 4CH: 179.46 mL Single Plane 2CH: 172.26 mL LA ESV Index: 101.00 mL/m2 Aortic Valve AoV Peak Fernando.: 1.20 m/s AO Peak Gr.: 5.77 mmHg LVOT Max P.08 mmHg [facility] [address] [place] [address] 2 D/M-MODE ECHOCARDIOGRAM Name: SAJAN GARNETT Room #: 201-P ADM IN M.R.#: [id number] Admission: 01/04/20 Attend Phys: Nigel Mejia MD Discharge: Date of : 43 Report #: [id number] LVOT Max V: 0.52 m/s AKILA Vmax: 1.56 cm2 Mitral Valve E/A Ratio: 5.1 MV Decel. Time: 101.11 ms MV E Max Fernando.: 1.07 m/s MV A Fernando.: 0.21 m/s MV PHT: 29.32 ms Pulmonary Valve PV Peak Fernando.: 0.77 m/s PV Peak Gr.: 2.37 mmHg Tricuspid Valve TR Peak Fernando.: 3.29 m/s TR Peak Gr.: 43.29 mmHg PA Pressure: 58.00 mmHg Left Ventricle Left ventricle is dilated. There is global hypokinesis of the left ventricle. There is normal left ventricular wall thickness. Left ventricular ejection fraction is severely decreased. LVEF is 10%. Severe diastolic dysfunction is present (restrictive filling). Right Ventricle Right ventricle is dilated. Right ventricle is hypokinetic. Atria Left atrium is dilated. Right atrium is dilated. Aortic Valve The aortic valve is mildly calcified. Trace aortic regurgitation. There is no aortic valvular stenosis. Mitral Valve The mitral valve is normal in structure. Moderate mitral regurgitation. No evidence of mitral valve stenosis. Tricuspid Valve The tricuspid valve is normal in structure. Mild tricuspid regurgitation. PAP estimated at 55 mmHg. Pulmonic Valve The pulmonary valve is normal in structure. Mild to moderate pulmonic regurgitation. [facility] [address] [place] [address] 2 D/M-MODE ECHOCARDIOGRAM Name: SAJAN GARNETT Room #: 201-P ADM IN M.R.#: [id number] Admission: 01/04/20 Attend Phys: Nigel Mejia MD Discharge: Date of : 41 Report #: [id number] Great Vessels The aortic root is normal in size. IVC is dilated and collapses >50% with inspiration. Pericardium There is no pericardial effusion. <Conclusion> Left ventricular ejection fraction is severely decreased. There is global hypokinesis of the left ventricle. LVEF is 10%. Severe diastolic dysfunction is present (restrictive filling). Both atria are dilated. Pacing/ICD wires present The aortic valve is mildly calcified. No stenosis, trace insufficiency The mitral valve is normal in structure. Moderate mitral regurgitation. Mild tricuspid regurgitation. Pulmonary atery pressure estimated at 55 mmHg. There is no pericardial effusion. <ELECTRONICALLY SIGNED> By: Darshan Carmona MD, [facility] 01/04/20 1304 03 Darshan Carmona MD, FAC /INF
[2020-01-04 20:10] VITALS: BP 114/78
[2020-01-05 04:45] VITALS: BP 95/70
--- NOTE | 2020-01-05 05:12 | NUR ---
ASSUMED PT CARE AT 1900. PT IS ALERT AND ORIENTED WITH NO SIGN OF DISTRESS NOTED IN PT. PT IS STABLE. AND AMBULATORY. CALL LIGHT WITHIN REACH. FALL PRECAUTION IN PLACE. VITAL SIGNS STABLE. ASSESSMENT COMPLETED AND DOCUMENTED. SCHEDULED MEDS AMDINISTERED TO PT. CONTINUE TO MONITOR. DENIES ANY FURTHER NEEDS AT THIS TIME.
[2020-01-05 05:28] LABS: HEMATOCRIT 29.1 % (42.0-52.0); HEMOGLOBIN 8.7 gm/dL (14.0-18.0); MCH 24.4 pg (26.0-34.0); MCHC 30.1 g/dL (28.0-37.0); MCV 81.2 fL (80.0-100.0); RBC 3.58 mil/uL (4.50-6.00); RDW 17.4 % (10.5-14.5); WBC 5.3 thou/uL (4.0-11.0)
[2020-01-05 05:35] LABS: CALCIUM 8.6 mg/dL (8.5-10.1); CREATININE 3.2 mg/dL (0.7-1.3); MAGNESIUM 2.2 mg/dL (1.8-2.4); POTASSIUM 4.5 mmol/L (3.5-5.1)
[2020-01-05 07:30] VITALS: BP 112/78
--- NOTE | 2020-01-05 09:07 | NUR ---
met with patient who reports he lives in independent home with spouse. He reports steps to bedroom, split level home. He uses a cane for ambulation. PCP Dr Cheema. Patient reports wants oxygen for home. Tested for home oxygen last admit and patient did not require home oxygen. Therapy evals in process. Anticipate sat/ex and possible HH at in. [facility] following.
--- NOTE | 2020-01-05 09:52 | NUR ---
ASSUMED CARE AT 0700, SHIFT ASSESSMENT DONE, MEDS GIVEN, VSS. SEEN BY CARDIOLOGY AND NEPHROLOGY TODAY. DR FAIRBANKS INFORMED AND CODE STATUS CHANGED TO FULL CODE NO INTUBATION. RA, PRN O2, SR WITH 1STAVB AND BBB. WILL CONTINUE TO ASSESS AND ASSIST WITH ADLs NEEDED.
[2020-01-05 11:07] VITALS: BP 98/63
[2020-01-05 16:25] VITALS: BP 119/68
[2020-01-05 20:26] VITALS: BP 97/67
[2020-01-06 04:15] VITALS: BP 116/80
--- NOTE | 2020-01-06 04:56 | NUR ---
ASSUMED PT CARE AT 1900. PT IS ALERT AND ORIENTED. NO SIGN OF DISTRESS NOTED IN PT. FAMILY AT BEDSIDE. DENIES ANY PAIN. MONITOR PATIENT BREATHING, FALL PRECAUTION IN PLACE. ASSESSMENT COMPLETED AND DOCUMENTED. SCHEDULED MEDS ADMINISTERED TO PT. CONTINUE TO MONITOR PT, DENIES ANY FURTHER NEEDS AT THIS TIME.
[2020-01-06 07:20] VITALS: BP 116/78
[2020-01-06 09:00] LABS: CALCIUM 9.3 mg/dL (8.5-10.1); CREATININE 3.6 mg/dL (0.7-1.3); POTASSIUM 4.6 mmol/L (3.5-5.1)
[2020-01-06 13:05] VITALS: BP 93/63
[2020-01-06] MEDS ORDERED: LASIX 40 MG TAB40 M1 PO (13:24)
--- NOTE | 2020-01-06 13:55 | NUR ---
Pt dcing home today. Exercise/at rest sat completed by RT. The pt does not qualify for home o2 per medicare guideline. HH orders noted. Dc recommendations discussed. Pt denies hh referral and will f/u with his pcp Dr. Perez. He understands he does not qualify for home o2. He is very fatigued and will call his for a ride home later this afternoon. Support provided. He did not want me to call his .
[2020-01-06 14:07] VITALS: BP 116/78
[2020-01-06 14:24] VITALS: BP 116/78
--- NOTE | 2020-01-06 15:19 | NUR ---
ASSUMED CARE OF PATIENT AT 0700. ASSESSMENT COMPLETED. TELE STRIP PRINTED AND PLACED ON THE CHART. PATIENT RESTING IN BED WITH AT THE BEDSIDE. PATIENT REQUESTING AT HOME OXYGEN, HOWEVER HE HAD GREATER THAN 98% OXYGEN SATURATION FOR ENTIRE EXERCISE TEST WITH RT. PATIENT DECLINED HOME HEALTH. PATIENT TO GO HOME AND DISCUSS DNR VS FULL CODE STATUS AT HOME AND SEE PCP WITH DECISIONS. PATIENT DENIES SHORTNESS OF AIR AT REST, HE COMPLAINS OF SHORTNESS OF AIR WITH EXERCISE, HOWEVER HE RECOVERS QUICKLY AT REST. PATIENT TAKEN VIA WHEELCHAIR TO THE [facility] VIA WHEELCHAIR TO BE DRIVEN HOME BY HIS .
== END 2020-01-06 14:37 | disposition home or self-care (01) | DRG 682 ==
LOC: ER 07:56 → 2N 10:04 → EROBS 10:04 → 2N 11:49 → ENTRNSPT 01-06 14:35 → EDTRNSPTSTS 01-06 14:36 → 2N 01-06 14:37
PROVIDERS: Emergency Medicine; Nurse Practitioner; ADMIT Internal Medicine
DX: N17.9 Acute kidney failure, unspecified (principal); J96.21 Acute and chronic respiratory failure with hypoxia; I50.43 Acute on chronic combined systolic (congestive) and diastolic (congestive) heart failure; I13.0 Hypertensive heart and chronic kidney disease with heart failure and stage 1 through stage 4 chronic kidney disease, or unspecified chronic kidney disease; N18.4 Chronic kidney disease, stage 4 (severe); I25.10 Atherosclerotic heart disease of native coronary artery without angina pectoris; I25.5 Ischemic cardiomyopathy; M10.9 Gout, unspecified; J44.9 Chronic obstructive pulmonary disease, unspecified; I71.4 Abdominal aortic aneurysm, without rupture; I48.0 Paroxysmal atrial fibrillation; K21.9 Gastro-esophageal reflux disease without esophagitis; G47.00 Insomnia, unspecified; Z66 Do not resuscitate; I73.9 Peripheral vascular disease, unspecified; D63.8 Anemia in other chronic diseases classified elsewhere; E78.5 Hyperlipidemia, unspecified; Z95.5 Presence of coronary angioplasty implant and graft; Z85.46 Personal history of malignant neoplasm of prostate; Z95.0 Presence of cardiac pacemaker; Z86.73 Personal history of transient ischemic attack (TIA), and cerebral infarction without residual deficits; Z88.0 Allergy status to penicillin; Z91.041 Radiographic dye allergy status; Z80.52 Family history of malignant neoplasm of bladder; Z82.49 Family history of ischemic heart disease and other diseases of the circulatory system; Z87.891 Personal history of nicotine dependence; Z79.82 Long term (current) use of aspirin; Z79.899 Other long term (current) drug therapy
CPT/HCPCS: 10081

== ENCOUNTER 2020-01-09 14:44 | Inpatient (IN) | payer OTHER ==
[~2020-01-09] VITALS: Ht 175.3 cm; Wt 68.9 kg
--- NOTE | ~2020-01-09 | HC ---
[facility] [place] [address] [place] [address] CONSULTATION Name: SAJAN GARNETT Room #: 201-P ADM IN M.R.#: [id number] Admission: 01/09/20 Attend Phys: Regi Diehl MD Discharge: Date of : 41 Report #: [id number] THIS REPORT FOR: cc: Richard Martinez,Quinn Mehta DO ~ CC: Burt Diehl DATE OF SERVICE: 01/11/2020 REQUESTING PHYSICIAN: Dr. Diehl. REASON FOR CONSULTATION: Systolic heart failure and chronic kidney disease. HISTORY OF PRESENT ILLNESS: The patient is a 74-year-old male who presented for admission for acute on chronic systolic heart failure with ejection fraction 10% for which patient has a pacemaker defibrillator. The patient additionally has multiple other comorbidities including AAA with 5.1 cm width as well as chronic kidney disease with creatinine 4.3. He was not an excellent candidate for dialysis at this time. The patient has presented after recent admission as early as several days prior to this most recent admission. At that last discharge, the patient decided to be CPR and medications as well as cardioversion only, no intubation. The patient had palliative care options discussed at that time, although he did not wish to pursue at that time, the patient and spouse are present today for my appointment. PAST MEDICAL HISTORY: AAA, systolic heart failure, BPH, COPD, cerebrovascular disease, gastroesophageal reflux disease, hypertension, hyperlipidemia, left bundle branch block. ALLERGIES: IODINE, PENICILLIN. FAMILY HISTORY: Noncontributory. SURGERY: Defibrillator, pacemaker placed, atrial pacing stent graft of AAA. SOCIAL HISTORY: Tobacco use history, but he is a former smoker. No significant alcohol or illicit drug use. CURRENT MEDICATIONS: Include Zetia, Lipitor, amiodarone, Protonix, Zofran, albuterol. REVIEW OF SYSTEMS: GENERAL: Does report occasional significant gains of weight due to heart [facility] [address] [place] [address] CONSULTATION Name: SAJAN GARNETT Room #: [address] [place] [address] [place] ..#: [id number] Admission: 01/09/20 Attend Phys: Regi Diehl MD Discharge: Date of : 41 Report #: [id number] failure. Denies fever or chills. HEENT: Denies any visual changes. CARDIOVASCULAR: Denies chest pain, palpitations. Does report lower extremity edema. ABDOMEN: Denies nausea, vomiting, constipation or diarrhea. EXTREMITIES: Denies any focal weakness. Currently, he does report diffuse weakness. RESPIRATORY: Does report shortness of breath. He is wearing nasal cannula currently. PHYSICAL EXAMINATION: VITAL SIGNS: This includes most recent vitals 36.3, pulse 69, respirations 20, blood pressure 107/79, 99% on room air. GENERAL: The patient appears to be alert. He is oriented x 3. He is in no acute distress. HEENT: Extraocular muscles are pretty intact. Normocephalic, atraumatic. No scleral icterus. CARDIOVASCULAR: Regular rate and rhythm. Murmur is present. LUNGS: Clear to auscultation bilaterally. No wheezes, rales or rhonchi. ABDOMEN: Soft, nontender to palpation x 4. Positive bowel sounds in all 4 quadrants. EXTREMITIES: Moves all extremities without focal weakness. He does have diffuse generalized weakness. LABORATORY DATA: These include hemoglobin 9.3, creatinine 4.3. ASSESSMENT AND PLAN: Acute on chronic systolic heart failure. I did discuss extensively options and spent approximately 40 minutes in discussion of advanced care planning including palliative options and hospice options whether at home or long-term care setting including aide options. I did discuss that we would go ahead and order a consultation for social work in order to assist with possible home care nurse, which spouse has been attempting to work on at this time. I did discuss again hospice and palliative care options as well as possibly changing to DNR status if felt to be amenable. They will discuss independently and then stated that they would return to decision making. We will consult social services analyst for the discussion further with regards to in-home care nurse. Thank you very much for this consultation. I have given my contact information in case further discussion is needed, but likely to discharge to home setting with additional support, possibly hospice services home health with an aide. By: [phone] Quinn Ortega DO /nt
[~2020-01-09 14:44] MED LIST changes: +LASIX 40 MG TAB40 M1 PO
[2020-01-09 14:45] VITALS: BP 97/63
[2020-01-09 15:39] LABS: ABSOLUTE NEUTROPHILS 4.4 thou/uL (1.4-8.2); BASOPHILS 1.6 % (0.0-2.0); EOSINOPHILS 0.7 % (0.0-3.0); HEMATOCRIT 32.1 % (42.0-52.0); HEMOGLOBIN 9.9 gm/dL (14.0-18.0); LYMPHOCYTES 16.5 % (24.0-44.0); MCH 24.7 pg (26.0-34.0); MCHC 30.9 g/dL (28.0-37.0); MCV 79.9 fL (80.0-100.0); MONOCYTES 8.1 % (1.0-8.0); PLATELET COUNT 330 thou/uL (150-400); POLYS 73.1 % (36.0-66.0); RBC 4.02 mil/uL (4.50-6.00); RDW 17.6 % (10.5-14.5); WBC 6.1 thou/uL (4.0-11.0)
[2020-01-09 15:57] LABS: APTT 30.4 Seconds (24.5-32.8); INR 1.5; PROTIME 15.4 Seconds (9.3-11.4)
[2020-01-09 15:58] LABS: CALCIUM 9.2 mg/dL (8.5-10.1); POTASSIUM 4.3 mmol/L (3.5-5.1)
[2020-01-09 16:07] LABS: TROPONIN-I 0.06 ng/mL (<0.06)
[2020-01-09 17:35] VITALS: BP 93/57
[2020-01-09 20:21] VITALS: BP 98/73
[2020-01-10] VITALS (7 sets, daily range): BP systolic 79–137; BP diastolic 52–111
[2020-01-10 10:35] LABS: HEMATOCRIT 31.3 % (42.0-52.0); HEMOGLOBIN 9.3 gm/dL (14.0-18.0)
[2020-01-10 10:48] LABS: CALCIUM 8.8 mg/dL (8.5-10.1); POTASSIUM 4.4 mmol/L (3.5-5.1)
[2020-01-10 10:51] LABS: % SATURATION 8 % (20-39); IRON 30 ug/dL (65-175); TIBC 390 ug/dL (250-450)
[2020-01-10 18:11] LABS: HEMOGLOBIN 9.2 gm/dL (14.0-18.0)
[2020-01-11 00:36] VITALS: BP 103/69
[2020-01-11 02:49] LABS: HEMATOCRIT 31.4 % (42.0-52.0); HEMOGLOBIN 9.2 gm/dL (14.0-18.0)
[2020-01-11 03:06] LABS: ALBUMIN 3.2 g/dL (3.4-5.0); CALCIUM 8.4 mg/dL (8.5-10.1); CREATININE 4.3 mg/dL (0.7-1.3); PHOSPHORUS 5.6 mg/dL (2.5-4.9); POTASSIUM 4.6 mmol/L (3.5-5.1)
[2020-01-11 05:22] VITALS: BP 105/72
[2020-01-11 07:40] VITALS: BP 116/73
[2020-01-11 10:44] LABS: HEMATOCRIT 29.5 % (42.0-52.0); HEMOGLOBIN 8.7 gm/dL (14.0-18.0)
[2020-01-11 11:20] VITALS: BP 113/75
[2020-01-11 16:20] VITALS: BP 107/79
[2020-01-11 18:09] LABS: HEMOGLOBIN 9.3 gm/dL (14.0-18.0)
[2020-01-11 20:12] VITALS: BP 93/66
[2020-01-12 04:46] VITALS: BP 98/69
[2020-01-12 08:00] VITALS: BP 111/80
[2020-01-12 10:50] VITALS: BP 106/76
[2020-01-12 13:45] VITALS: BP 106/73
[2020-01-12] MEDS ORDERED: ACETAMINOPHEN325 M1 PO (16:21)
[2020-01-12 16:44] VITALS: BP 106/76
--- NOTE | 2020-01-13 08:30 | EKG ---
[facility] [address] [place] [address] ELECTROCARDIOGRAM REPORT Name: SAJAN GARNETT Room #: 201-P DIS IN M.R.#: [id number] Admission: 01/09/20 Attend Phys: Regi Diehl MD Discharge: 01/12/20 Date of : 41 Report #: [id number] THIS REPORT FOR: cc: Richard Martinez James A. DO Lundgren, Craig H. 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: Renetta GARZA : 1945 Requested By: Truong Escalona Order Number: [id number] MD: Darshan Carmona Measurements Intervals [place] Rate: 63 P: MS: 230 QRS: 111 QRSD: 157 T: -85 QT: 513 QTc: 526 Interpretive Statements Ventricular-paced complexes No further analysis attempted due to paced rhythm Compared to ECG 01/09/2020 15:32:36 No significant change was found Electronically Signed On 01-13-2020 8:29:14 [employer] by Darshan Carmona [email or web address] <ELECTRONICALLY SIGNED> By: Darshan Carmona MD, [facility] 01/13/20 0829 1403 1403 Darshan Carmona MD, [facility] /EPI
--- NOTE | 2020-01-14 15:34 | EKG ---
[facility] [place] [address] [place] [address] ELECTROCARDIOGRAM REPORT Name: SAJAN GARNETT Room #: 201-[facility] IN M.R.#: [id number] Admission: 01/09/20 Attend Phys: Regi Diehl MD Discharge: 01/12/20 Date of : 41 Report #: [id number] THIS REPORT FOR: cc: Richard Martinez James A. DO Lundgren, Craig H. MD [facility] ~ THIS REPORT FOR: //name// [facility] ED Test Date: 2020-01-09 Test Time: 15:32:36 Pat Name: SAJAN GARNETT Department: Room: 201 Gender: M Manager Flight Operations: ROSEANN : 1945 Requested By: Jah Connell Order Number: [id number] MD: Darshan Carmona Measurements Intervals [place] Rate: 64 P: 59 MT: 76 QRS: 101 QRSD: 154 T: 232 QT: 497 QTc: 513 Interpretive Statements Atrial-ventricular dual-paced complexes No further rhythm analysis attempted due to paced rhythm Compared to ECG 01/03/2020 17:34:17 No significant change was found Electronically Signed On 01-10-2020 8:00:33 STERILE PROC TECH by Darshan Carmona [email or web address] <ELECTRONICALLY SIGNED> By: Darshan Carmona MD, FAC 01/10/20 0800 153 153 Darshan Carmona MD, [facility] /EPI
== END 2020-01-12 19:34 | disposition hospice, home (50) | DRG 441 ==
LOC: ER 14:44 → EROBS 17:14 → 2N 17:14
PROVIDERS: Emergency Medicine; Hospitalist; Nurse Practitioner; ADMIT Internal Medicine
PROC: 0DJ08ZZ Inspection of Upper Intestinal Tract, Via Natural or Artificial Opening Endoscopic (ICD-10-PCS; principal; 2020-01-11)
DX: K76.6 Portal hypertension (principal); I50.43 Acute on chronic combined systolic (congestive) and diastolic (congestive) heart failure; K92.2 Gastrointestinal hemorrhage, unspecified; N17.9 Acute kidney failure, unspecified; I13.0 Hypertensive heart and chronic kidney disease with heart failure and stage 1 through stage 4 chronic kidney disease, or unspecified chronic kidney disease; N18.4 Chronic kidney disease, stage 4 (severe); D62 Acute posthemorrhagic anemia; K92.1 Melena; E44.0 Moderate protein-calorie malnutrition; E87.2 Acidosis; K31.89 Other diseases of stomach and duodenum; I71.4 Abdominal aortic aneurysm, without rupture; E78.00 Pure hypercholesterolemia, unspecified; I25.10 Atherosclerotic heart disease of native coronary artery without angina pectoris; I25.5 Ischemic cardiomyopathy; M10.9 Gout, unspecified; G47.33 Obstructive sleep apnea (adult) (pediatric); F17.210 Nicotine dependence, cigarettes, uncomplicated; N40.0 Benign prostatic hyperplasia without lower urinary tract symptoms; J44.9 Chronic obstructive pulmonary disease, unspecified; K21.9 Gastro-esophageal reflux disease without esophagitis; E78.5 Hyperlipidemia, unspecified; I44.7 Left bundle-branch block, unspecified; I48.0 Paroxysmal atrial fibrillation; Z95.5 Presence of coronary angioplasty implant and graft; Z79.899 Other long term (current) drug therapy; Z86.73 Personal history of transient ischemic attack (TIA), and cerebral infarction without residual deficits; Z79.01 Long term (current) use of anticoagulants; Z95.820 Peripheral vascular angioplasty status with implants and grafts; Z95.810 Presence of automatic (implantable) cardiac defibrillator; Z79.82 Long term (current) use of aspirin; Z88.0 Allergy status to penicillin; Z91.041 Radiographic dye allergy status; Z91.14 Patient's other noncompliance with medication regimen; Z68.22 Body mass index [BMI] 22.0-22.9, adult
CPT/HCPCS: 10081; 62110; 62900